=== PATIENT | female | born 1960 | race Caucasian/White ===

== ENCOUNTER 2016-05-18 12:29 | Outpatient (CLI) | payer MEDICARE, MEDICAID | END 2016-05-18 12:30 | disposition home or self-care (01) | DX: E87.1 Hypo-osmolality and hyponatremia (principal); I10 Essential (primary) hypertension ==

== ENCOUNTER 2016-05-31 13:28 | Outpatient (CLI) | payer MEDICARE, MEDICAID | END 2016-05-31 13:29 | disposition home or self-care (01) | DX: E87.1 Hypo-osmolality and hyponatremia (principal) ==

== ENCOUNTER 2016-07-14 14:45 | Outpatient (CLI) | payer MEDICARE, MEDICAID | END 2016-07-14 15:00 | disposition home or self-care (01) | DX: R42 Dizziness and giddiness (principal) ==

== ENCOUNTER 2016-11-17 10:02 | Outpatient (CLI) | payer MEDICARE, MEDICAID ==
[2016-11-17 11:03] LABS: BASOPHILS # (AUTO) 0.1 10^3/uL (0.0-0.1); BASOPHILS % (AUTO) 0.9 %; EOSINOPHILS # (AUTO) 0.2 10^3/uL (0.0-0.7); EOSINOPHILS % (AUTO) 3.4 %; HCT - HEMATOCRIT 40.6 % (37.0-47.0); HGB - HEMOGLOBIN 13.8 g/dL (12.0-16.0); LYMPHOCYTES # (AUTO) 1.5 10^3/uL (1.5-3.5); LYMPHOCYTES % (AUTO) 22.5 %; MEAN CORPUSCULAR HGB CONC 33.9 g/dL (32.0-36.0); MEAN CORPUSCULAR VOLUME 91.4 fL (81.0-99.0); MEAN PLATELET VOLUME 7.4 fL (7.9-10.8); MONOCYTES # (AUTO) 0.7 10^3/uL (0.0-1.0); MONOCYTES % (AUTO) 9.9 %; NEUTROPHILS # (AUTO) 4.1 10^3/uL (1.5-6.6); NEUTROPHILS % (AUTO) 63.3 %; RED BLOOD COUNT 4.44 10^6/uL (4.20-5.40); RED CELL DISTRIBUTION WIDTH 12.9 % (12.0-15.0); UNCORRECTED WHITE BLOOD COUNT 6.5 x10^3/uL; WHITE BLOOD COUNT 6.5 x10^3/uL (4.8-10.8)
[2016-11-17 11:41] LABS: ALBUMIN/GLOBULIN RATIO 1.9 (1.0-2.2); BILIRUBIN,TOTAL 0.7 mg/dL (0.2-1.0); BUN - BLOOD UREA NITROGEN 16 mg/dL (6-20); CALCIUM 9.8 mg/dL (8.5-10.3); CARBON DIOXIDE - CO2 29 mmol/L (21-32); CHLORIDE 95 mmol/L (101-111); CHOL/HDL RATIO 2.8 (<4.4); CHOLESTEROL 213 mg/dL; CREATININE 0.8 mg/dL (0.4-1.0); GFR - MDRD 74 (>89); GLUCOSE 116 mg/dL (70-100); HDL CHOLESTEROL 76 mg/dL; LDL/HDL RATIO 1.6 (<4.4); POTASSIUM 4.8 mmol/L (3.5-5.0); SODIUM 134 mmol/L (135-145); TOTAL PROTEIN 6.9 g/dL (6.7-8.2); TRIGLYCERIDES 83 mg/dL; VLDL CHOLESTEROL 17 mg/dL
== END 2016-11-17 10:03 | disposition home or self-care (01) ==
LOC: LAB 10:02
PROVIDERS: ATTEND Family Medicine
DX: E87.1 Hypo-osmolality and hyponatremia (principal); F31.30 Bipolar disorder, current episode depressed, mild or moderate severity, unspecified; Z51.81 Encounter for therapeutic drug level monitoring; R61 Generalized hyperhidrosis
CPT/HCPCS: 36415; 80053; 80061; 84443; 85025

== ENCOUNTER 2016-12-11 20:10 | Emergency (ER) | payer MEDICARE, MEDICAID ==
[2016-12-11 20:22] VITALS: BP 133/90
[2016-12-11] MEDS ORDERED: ACETAMINOPHEN 325 MG TABLET PO STA (20:36)
--- NOTE | 2016-12-11 20:38 | ED Physician Documentation ---
PD HPI HEENT - Stated complaint Stated Complaint: TOOTH PX - Chief complaint Chief Complaint: Heent - History obtained from History obtained from: Patient - History of Present Illness Timing - onset: How many days ago (4) Timing - details: Abrupt onset, Still present Location: Mouth Improves: Nothing Associated symptoms: No: Fever, Congestion, Rhinorrhea, Unable to swallow Similar symptoms before: Work up / diagnostics Recently seen: Clinic - Additional information Additional information: Patient is a 56 year old female wiht no significant past medical history who is presenting to the emergency department for facial pain. Patient states that she went to the dentist 4 days prior and had some injections. Patient states that there has been a small mass there since that time and it has been painful since then. Patient denies fever, chills, change in vision or numbness. Review of Systems Constitutional: denies: Fever, Chills Eyes: denies: Loss of vision, Decreased vision, Photophobia Ears: denies: Ear pain, Drainage/discharge Nose: denies: Rhinorrhea / runny nose, Congestion, Epistaxis Throat: reports: Dental pain / toothache. denies: Oral lesions / sores Cardiac: denies: Chest pain / pressure, Palpitations Respiratory: denies: Cough, Wheezing GI: denies: Nausea, Vomiting : reports: Reviewed and negative Skin: reports: Lesions Musculoskeletal: denies: Neck pain, Back pain Neurologic: denies: Focal weakness, Numbness Immunocompromised: denies: Immunocompromised PD PAST MEDICAL HISTORY - Past Medical History Past Medical History: Yes Cardiovascular: Hypertension Respiratory: Other Neuro: Headache/migraine, Head injury, Seizure disorder Endocrine/Autoimmune: None Psych: Depression, Anxiety, Bipolar disorder, Panic attacks Musculoskeletal: Osteoarthritis, Fibromyalgia, Chronic back pain - Past Surgical History Past Surgical History: Yes General: Bowel surgery /RN FAMILY: Tubal ligation - Present Medications Home Medications: Ambulatory Orders Medication Instructions Recorded Confirmed Baclofen [Lioresal] 10 mg PO TID 01/29/13 12/11/16 Citalopram [CeleXA] 40 mg PO DAILY 01/29/13 12/11/16 Gabapentin 600 mg PO TID 01/29/13 12/11/16 Ibuprofen [Advil Migraine] 800 mg PO QID 01/29/13 12/11/16 Metoprolol Tartrate [Lopressor] 25 mg PO BID 01/29/13 12/11/16 Vitamin [Trinatal Rx 1] 1 each PO DAILY 01/29/13 12/11/16 QUEtiapine [SEROquel] 200 mg ORAL QPM 02/25/14 12/11/16 Meloxicam 15 mg PO DAILY 12/11/16 12/11/16 - Allergies Allergies/Adverse Reactions: Allergies Allergy/AdvReac Type Severity Reaction Status Date / Time Sulfa (Sulfonamide Allergy Itching Verified 12/11/16 20:22 Antibiotics) sulfamethoxazole Allergy Unknown Verified 12/11/16 20:22 [From ] trimethoprim [From ] Allergy Unknown Verified 12/11/16 20:22 - Social History Does the pt smoke?: Yes Smoking Status: Current every day smoker Does the pt drink ETOH?: Yes Does the pt have substance abuse?: No - Immunizations Immunizations are current?: Yes PD ED PE NORMAL - Vitals Vital signs reviewed: Yes - General General: Alert and oriented X 3, No acute distress, Well developed/nourished - HEENT HEENT: Atraumatic, PERRL, Moist mucous membranes - Neck Neck: Supple, no meningeal sign, No JVD - Cardiac Cardiac: RRR, No murmur - Respiratory Respiratory: No respiratory distress, Clear bilaterally - Abdomen Abdomen: Soft, Non tender, Non distended - Derm Derm: Normal color, Warm and dry, No rash - Extremities Extremities: No deformity - Neuro Neuro: Alert and oriented X 3, No motor deficit, No sensory deficit, Normal speech - Psych Psych: Normal mood PD ED PE EXPANDED - HEENT HEENT: Dental decay (dental caries, no surrounding abscess or fluid collection) , Other (tendern nodule over left maxillary region, no erythema) Results - Vitals Vitals: Vital Signs - 24 hr 12/11/16 20:20 Temperature 36.3 C L Heart Rate 83 Respiratory 18 Rate Blood Pressure 133/90 H O2 Saturation 96 Oxygen O2 Source Room air PD MEDICAL DECISION MAKING - ED course Complexity details: reviewed old records, reviewed results, re-evaluated patient , considered differential, d/w patient ED course: Patient was seen and examined at bedside. Patient's symptoms were secondary to the injection. there was no infection or neurological deficit. Patient was treated with tylenol for pain. Patient required no further work up and was stable for discharge with outpatient follow up. Departure - Departure Disposition: 01 Home, Self Care Clinical Impression: Injection site reaction Condition: Good Instructions: ED Tooth Pain Follow-Up: primary,dentist [Other] - Within 3 Days Comments: Your symptoms are likely secondary to your injection. there is no sign of infection at this time. You should alternate between motrin and tylenol as needed for pain. You should apply warm compresses to the injection site. You should follow up with your dentist over the next few days. You may return to the emergency department at any time for new, worsening or uncontrollable symptoms. Discharge Date/Time: 12/11/16 20:49
[2016-12-11] MEDS ORDERED: ACETAMINOPHEN 325 MG TABLET PO ONE (20:52)
== END 2016-12-11 20:49 | disposition home or self-care (01) ==
LOC: ED 20:10
DX: R22.9 Localized swelling, mass and lump, unspecified (principal); G50.1 Atypical facial pain; K02.9 Dental caries, unspecified; Z98.890 Other specified postprocedural states
CPT/HCPCS: 99283; A9270

== ENCOUNTER 2017-02-13 09:58 | Emergency (ER) | payer MEDICARE, MEDICAID ==
[2017-02-13 10:06] VITALS: BP 198/94
[2017-02-13] MEDS ORDERED: AMOX/CLAV 875 MG/125 MG TABLET PO STA ×2 (10:14→10:16)
--- NOTE | 2017-02-13 10:15 | ED Physician Documentation ---
PD HPI HEENT - Stated complaint Stated Complaint: TOOTH PX - Chief complaint Chief Complaint: Heent - History obtained from History obtained from: Patient - History of Present Illness Timing - onset: Yesterday Timing - details: Gradual onset, Still present Location: Tooth, Mouth Associated symptoms: Facial swelling. No: Fever Similar symptoms before: Work up / diagnostics, Treatment Recently seen: Not recently seen - Additional information Additional information: Patient is a 56 year old female who is presenting to the emergency department for facial swelling. patient states that about a month ago she developed an abscess in her mouth and saw her dentist and was on antibiotics. Patient states that today when she woke up her face was swollen and she noticed an abscess in her mouth. Review of Systems Constitutional: denies: Fever, Chills Eyes: reports: Reviewed and negative Ears: denies: Ear pain, Drainage/discharge Nose: reports: Reviewed and negative Throat: reports: Oral lesions / sores Cardiac: reports: Reviewed and negative Respiratory: reports: Reviewed and negative GI: reports: Reviewed and negative : reports: Reviewed and negative Musculoskeletal: reports: Reviewed and negative Immunocompromised: denies: Immunocompromised PD PAST MEDICAL HISTORY - Past Medical History Cardiovascular: Hypertension Respiratory: Other Neuro: Headache/migraine, Head injury, Seizure disorder Endocrine/Autoimmune: None Psych: Depression, Anxiety, Bipolar disorder, Panic attacks Musculoskeletal: Osteoarthritis, Fibromyalgia, Chronic back pain - Past Surgical History Past Surgical History: Yes 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 - Present Medications Home Medications: Ambulatory Orders Medication Instructions Recorded Confirmed Baclofen [Lioresal] 10 mg PO TID 01/29/13 02/13/17 Citalopram [CeleXA] 40 mg PO DAILY 01/29/13 02/13/17 Gabapentin 600 mg PO TID 01/29/13 02/13/17 Ibuprofen [Advil Migraine] 800 mg PO QID 01/29/13 02/13/17 Metoprolol Tartrate [Lopressor] 25 mg PO BID 01/29/13 02/13/17 Vitamin [Trinatal Rx 1] 1 each PO DAILY 01/29/13 02/13/17 QUEtiapine [SEROquel] 200 mg ORAL QPM 02/25/14 02/13/17 Meloxicam 15 mg PO DAILY 12/11/16 02/13/17 Amox/Clav 875/125 [Augmentin] 1 each PO Q12H #14 tablet 02/13/17 Chlorhexidine Gluconate 15 ml MM Q6HR #470 ml 02/13/17 - Allergies Allergies/Adverse Reactions: Allergies Allergy/AdvReac Type Severity Reaction Status Date / Time Sulfa (Sulfonamide Allergy Itching Verified 12/11/16 20:22 Antibiotics) sulfamethoxazole Allergy Unknown Verified 12/11/16 20:22 [From ] trimethoprim [From ] Allergy Unknown Verified 12/11/16 20:22 - Social History Does the pt smoke?: Yes Smoking Status: Current every day smoker Does the pt drink ETOH?: Yes Does the pt have substance abuse?: No - Immunizations Immunizations are current?: Yes PD ED PE NORMAL - Vitals Vital signs reviewed: Yes - General General: Alert and oriented X 3, No acute distress - HEENT HEENT: Atraumatic, PERRL - Cardiac Cardiac: RRR, No murmur - Respiratory Respiratory: No respiratory distress - Derm Derm: Normal color, Warm and dry, No rash - Extremities Extremities: No deformity - Neuro Neuro: Alert and oriented X 3 - Psych Psych: Normal mood PD ED PE EXPANDED - HEENT HEENT: Dental abscess (1cm by 0.5 cm on superior lateral gums on bucal/gingiva region on the left) Results - Vitals Vitals: Vital Signs - 24 hr 02/13/17 10:03 Temperature 36.3 C L Heart Rate 88 Respiratory 18 Rate Blood Pressure 198/94 H O2 Saturation 98 Oxygen O2 Source Room air Procedures - Abscess I&D (location) left upper gums Preparation: Marcaine 0.5% Incision: Needle aspiration Other: Pt tolerated well, Antibiotic prescribed PD MEDICAL DECISION MAKING - ED course Complexity details: reviewed old records, reviewed results, re-evaluated patient , considered differential, d/w patient ED course: Patient was seen and examined at bedside. patient's abscess was I/D. Patient was treated with ibuprofen and augmentin. patient required no further work up at this time and was stable for discharge with outpatient follow up. Departure - Departure Disposition: 01 Home, Self Care Clinical Impression: Dental abscess Condition: Good Instructions: ED Dental Abscess Facial Cellulitis Follow-Up: Raffi Miller MD [Primary Care Provider] - Prescriptions: Chlorhexidine Gluconate 15 ml MM Q6HR #470 ml Amox/Clav 875/125 [Augmentin] 1 each PO Q12H #14 tablet Comments: Your symptoms today are being caused by a dental abscess. it has been opened up , and you were started on antibiotics. You should take the antibiotics twice a day and use the oral rinse at least 4 times a day. Ultimately you will need to follow up with your dentist for further evaluation and care. You can take motrin or tylenol as needed for pain. You may return to the emergency department at any time for new, worsening or uncontrollable symptoms.
[2017-02-13] MEDS ORDERED: IBUPROFEN 600 MG TABLET PO STA (10:17)
== END 2017-02-13 10:26 | disposition home or self-care (01) ==
LOC: ED 09:58
DX: K04.7 Periapical abscess without sinus (principal); I10 Essential (primary) hypertension; M79.7 Fibromyalgia; M19.90 Unspecified osteoarthritis, unspecified site; F17.200 Nicotine dependence, unspecified, uncomplicated
CPT/HCPCS: 41800; 99283; A9270

== ENCOUNTER 2017-02-24 09:17 | Outpatient (CLI) | payer MEDICARE, MEDICAID ==
--- NOTE | 2017-02-24 11:47 | XRAY Report ---
DATE OF SERVICE: 02/24/2017 RIGHT FOOT: 02/24/2017 COMPARISON: None. INDICATION: Right foot pain. TECHNIQUE: Three views of the foot. FINDINGS: Normal alignment. No evidence of acute fracture. No degenerative changes. Soft tissues grossly unremarkable. IMPRESSION: NEGATIVE RIGHT FOOT. TD: 02/24/2017 12:17 [facility]
== END 2017-02-24 09:18 | disposition home or self-care (01) ==
LOC: DI.N 09:17
PROVIDERS: ATTEND Family Medicine
DX: M79.671 Pain in right foot (principal)

== ENCOUNTER 2017-03-07 09:10 | Outpatient (CLI) | payer MEDICARE, MEDICAID ==
--- NOTE | 2017-03-07 11:41 | Ultrasound Report ---
DATE OF SERVICE: 03/07/2017 ULTRASOUND RIGHT FOOT SOFT TISSUES: 03/07/2017 CLINICAL INDICATION: Pain, question foreign body. TECHNIQUE: Real-time scanning was performed with business banking representative static images obtained. FINDINGS: Ultrasound of the region of pain identified by the patient was performed. Subcutaneous edema is seen. No definite foreign body is identified. IMPRESSION: No definite foreign body identified in the soft tissues on the plantar surface of the right calcaneus. Subcutaneous edema. TD: 03/07/2017 12:40
== END 2017-03-07 09:11 | disposition home or self-care (01) ==
LOC: DI 09:10
PROVIDERS: ATTEND Family Medicine
DX: M79.671 Pain in right foot (principal); R60.0 Localized edema
CPT/HCPCS: 76882

== ENCOUNTER 2017-06-29 13:39 | Outpatient (CLI) | payer MEDICARE, MEDICAID ==
[2017-06-29 14:14] LABS: CALCIUM 9.4 mg/dL (8.5-10.3); CREATININE 0.8 mg/dL (0.4-1.0)
[2017-06-29 14:22] LABS: HB2 TOTAL 15.2 g/dL; HEMOGLOBIN A1C 0.59 g/dL; HEMOGLOBIN A1C % 5.7 % (4.6-6.2)
== END 2017-06-29 13:40 | disposition home or self-care (01) ==
LOC: LAB 13:39
PROVIDERS: ATTEND Family Medicine
DX: R73.01 Impaired fasting glucose (principal); Z51.81 Encounter for therapeutic drug level monitoring
CPT/HCPCS: 36415; 80048; 83036

== ENCOUNTER 2017-08-29 14:48 | Outpatient (CLI) | payer MEDICARE, MEDICAID ==
--- NOTE | 2017-08-29 15:58 | XRAY Report ---
Procedure Date: 08/29/2017 Accession Number: [id number] / [id number] Procedure: XRN - Shoulder 3 View RT CPT Code: FULL RESULT: EXAM: Shoulder 3 View RT DATE: 08/29/2017 3:10 PM CLINICAL HISTORY: R SHOULDER CONTUSION COMPARISON: None. TECHNIQUE: 3 views. FINDINGS: Bones: Normal. No fracture or bone lesion. Joints: Minimal degenerative changes in the acromioclavicular joint. Soft tissues: Progressive emphysema and fibrosis in the right upper lobe. Fullness and retraction of the right hilum. The possibility of a hilar mass cannot be excluded. Consider chest CT with contrast for further evaluation. IMPRESSION: Mild degenerative changes of the acromioclavicular joint. Right hilar fullness, with superior retraction. The possibility of a right hilar mass cannot be excluded. Consider chest CT with contrast for further evaluation. [facility]
== END 2017-08-29 14:49 | disposition home or self-care (01) ==
LOC: DI.N 14:48
PROVIDERS: ATTEND Family Medicine
DX: M25.511 Pain in right shoulder (principal); S40.011A Contusion of right shoulder, initial encounter

== ENCOUNTER 2017-09-08 12:19 | Outpatient (CLI) | payer MEDICARE, MEDICAID ==
[2017-09-08] MEDS ORDERED: IOPAMIDOL-300 100 ML VIAL ONE (12:53)
[2017-09-08 13:14] LABS: CALCIUM 9.1 mg/dL (8.5-10.3); CREATININE 0.7 mg/dL (0.4-1.0)
[2017-09-08] MEDS: IOPAMIDOL-300 100 ML VIAL IVP ONE (13:33)
--- NOTE | 2017-09-08 13:57 | CT Report ---
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 TECHNIQUE: Routine helical CT imaging was performed through the chest. IV contrast: 80 mL Isovue 300 Reconstructions: Coronal and sagittal. In accordance with CT protocol optimization, one or more of the following dose reduction techniques were utilized for this exam: automated exposure control, adjustment of mA and/or KV based on patient size, or use of iterative reconstructive technique. FINDINGS: Lungs/Pleura: There is a 5.5 x 4.1 cm spiculated right upper lobe hilar mass with partial collapse of the right upper lobe and interstitial thickening suggestive of perilymphatic spread of disease and partial encasement of right hilar vessels. There is associated lymphadenopathy of an abnormally enhancing 1.3 cm subcarinal node with loss of fatty hilum as well as a 1.4 cm pretracheal node with similarly concerning features. No chest wall invasion, contralateral hilar adenopathy or contralateral lung mass is identified. There is no associated pleural effusion. Both lungs demonstrate severe upper lobe predominant emphysema. The heart is normal for size. In the visualized upper abdomen, a left retroperitoneal/coronal lymph node does not meet size criteria but is visually suspicious. Incompletely imaged is a perisplenic 1.1 cm lymph node versus volume averaging of a splenule. The liver contains a hypoattenuating subcapsular posterior lesion measuring 6.3 x 3 cm, soft tissue density. No aggressive osseous lesions are identified. IMPRESSION: Highly suspicious right upper lobe perihilar mass with perilymphatic invasion and partial encasement of hilar vasculature as described with associated mediastinal lymphadenopathy. Nonspecific liver mass measuring up to 6 cm. Possible retroperitoneal abdominal lymphadenopathy including a incompletely imaged perisplenic finding as described. Recommendation: Staging with completion CT abdomen pelvis, PET/CT and tissue sampling. [facility]
== END 2017-09-08 12:20 | disposition home or self-care (01) ==
LOC: DI 12:19
PROVIDERS: ATTEND Family Medicine
DX: R91.8 Other nonspecific abnormal finding of lung field (principal); R59.0 Localized enlarged lymph nodes; R16.0 Hepatomegaly, not elsewhere classified; F17.210 Nicotine dependence, cigarettes, uncomplicated
CPT/HCPCS: 36415; 71260; 80048; Q9967

== ENCOUNTER 2017-11-02 13:13 | Outpatient (CLI) | payer MEDICARE, MEDICAID ==
--- NOTE | 2017-11-03 09:19 | Mammography Report ---
Reason: SCREENING MAMMO Procedure Date: 11/02/2017 Accession Number: [id number] / [id number] Procedure: SANDRA - Screening Mammo Dig Bilat CPT Code: FULL RESULT: EXAM: Screening Mammo Dig Bilat DATE: 11/02/2017 3:03 PM CLINICAL HISTORY: Screening mammogram TECHNIQUE: Bilateral CC and MLO views were obtained. COMPARISON: Mammogram 01/28/2015 FINDINGS: The breast parenchyma is heterogeneously dense which may limit the sensitivity of mammography. No suspicious masses, clustered microcalcifications, or regions of architectural distortion are identified. IMPRESSION: BI-RADS Category 1. Negative. RECOMMENDATION: Routine annual screening unless otherwise clinically indicated. BIRADS CATEGORY 1: Negative STANDARD QUALIFYING STATEMENTS: 1. This examination was reviewed with the aid of Computer-Aided Detection (CAD). 2. A negative or benign imaging report should not delay biopsy if clinically suspicious findings are present. Consider surgical consultation if warrented. More than 5% of cancers are not identified by imaging. 3. Dense breasts may obscure an underlying neoplasm.
== END 2017-11-02 13:14 | disposition home or self-care (01) ==
LOC: DI 13:13
DX: Z12.31 Encounter for screening mammogram for malignant neoplasm of breast (principal)
CPT/HCPCS: 77067

== ENCOUNTER 2017-12-02 13:33 | Emergency (ER) | payer MEDICARE, MEDICAID ==
[2017-12-02 13:42] VITALS: BP 153/90
--- NOTE | 2017-12-02 13:51 | ED Physician Documentation ---
PD HPI SKIN - Stated complaint Stated Complaint: BUMP ON R ARMPIT - Chief complaint Chief Complaint: Wound - History obtained from History obtained from: Patient - History of Present Illness Timing - onset: Yesterday (has noted swelling of right axillary area yesterday and worse today. Had biopsy of lymph node 5 days ago for workup of lung cancer. No redness nor drainage from the area.) Timing - duration: Days (2) Timing - details: Abrupt onset, Still present Location: Other (right lateral chest/lower axillary area.) Quality / character: Swelling Associated symptoms: Other (she also ran out of her pain med Rx she had gotten recently, oxycodone.) Similar symptoms before: Has not had sx before Recently seen: Surgery (had lymph node biopsy in that area 5 days ago, with 2 cm incision.) Review of Systems Constitutional: denies: Fever, Chills, Myalgias Nose: denies: Rhinorrhea / runny nose, Congestion Throat: denies: Sore throat Respiratory: denies: Cough GI: denies: Nausea, Vomiting PD PAST MEDICAL HISTORY - Past Medical History Past Medical History: Yes Cardiovascular: Hypertension Respiratory: Other Endocrine/Autoimmune: None Psych: Depression, Anxiety, Bipolar disorder, Panic attacks Musculoskeletal: Osteoarthritis, Fibromyalgia, Chronic back pain Other Past Medical History: lung cancer with unknown staging - Past Surgical History Past Surgical History: Yes 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 - Present Medications Home Medications: Ambulatory Orders Medication Instructions Recorded Confirmed Citalopram [CeleXA] 40 mg PO DAILY 01/29/13 02/13/17 Gabapentin 600 mg PO TID 01/29/13 02/13/17 Metoprolol Tartrate [Lopressor] 25 mg PO BID 01/29/13 02/13/17 Vitamin [Trinatal Rx 1] 1 each PO DAILY 01/29/13 02/13/17 QUEtiapine [SEROquel] 200 mg ORAL QPM 02/25/14 02/13/17 Meloxicam 15 mg PO DAILY 12/11/16 02/13/17 oxyCODONE [Roxicodone] 5 mg PO Q4-6H PRN #20 tablet 12/02/17 - Allergies Allergies/Adverse Reactions: Allergies Allergy/AdvReac Type Severity Reaction Status Date / Time Sulfa (Sulfonamide Allergy Itching Verified 12/02/17 13:42 Antibiotics) sulfamethoxazole Allergy Unknown Verified 12/02/17 13:42 [From ] trimethoprim [From ] Allergy Unknown Verified 12/02/17 13:42 - Social History Does the pt smoke?: Yes Smoking Status: Current every day smoker Does the pt drink ETOH?: Yes Does the pt have substance abuse?: No - Immunizations Immunizations are current?: Yes - POLST Patient has POLST: No PD ED PE NORMAL - Vitals Vital signs reviewed: Yes - General General: Alert and oriented X 3, No acute distress, Well developed/nourished - Cardiac Cardiac: RRR, No murmur - Respiratory Respiratory: No: Clear bilaterally (some congested sounds left side. no wheezing. ) - Derm Derm: Normal color, Warm and dry, Other (right lower axillary/lateral chest area with 2 cm closed incision wound without redness nor warmth. There is fluctuant fluid collection under the skin in that area. ) Results - Vitals Vitals: Vital Signs - 24 hr 12/02/17 13:38 Temperature 36.3 C L Heart Rate 76 Respiratory 18 Rate Blood Pressure 153/90 H O2 Saturation 95 Oxygen O2 Source Room air Procedures - General procedure General procedure: After discussing with the patient, we agreed on draining the area to see if it looked infected or just a seroma. Local anesthetic with 1% lidocaine with epi was injected after cleansing the skin. I then used an 18-gauge needle on a syringe to drain clear yellow fluid from the area. 48 mL of fluid was obtained. There is no purulence nor blood. It appeared consistent with seroma fluid. It was not cultured. Departure - Departure Disposition: 01 Home, Self Care Clinical Impression: Seroma after procedure Condition: Stable Record reviewed to determine appropriate education?: Yes Instructions: ED Seroma Post Op Follow-Up: Raffi Miller MD [Primary Care Provider] - Prescriptions: oxyCODONE [Roxicodone] 5 mg PO Q4-6H PRN #20 tablet PRN Reason: Pain Comments: This looks to be clear fluid consistent with seroma. It does not look infected. Follow-up with your primary care or oncologist as planned. Return if this area does get red hot or you develop fever. Discharge Date/Time: 12/02/17 14:44
[2017-12-02] MEDS ORDERED: LIDOCAINE MPF 1%-EPI 1:200000 30 ML VIAL SUBQ STA (14:00)
[2017-12-02] MEDS ORDERED: oxyCODONE 5 MG TABLET PO STA (14:00)
== END 2017-12-02 14:44 | disposition home or self-care (01) ==
LOC: ED 13:33
DX: L76.34 Postprocedural seroma of skin and subcutaneous tissue following other procedure (principal); I70.1 Atherosclerosis of renal artery; F17.200 Nicotine dependence, unspecified, uncomplicated
CPT/HCPCS: 10160; 99283; A9270

== ENCOUNTER 2017-12-03 13:02 | Emergency (ER) | payer MEDICARE, MEDICAID ==
[2017-12-03 13:07] VITALS: BP 149/96
--- NOTE | 2017-12-03 13:32 | ED Physician Documentation ---
PD HPI WOUND RECHECK - Stated complaint Stated Complaint: UNDERARM PX - Chief complaint Chief Complaint: Wound - Histroy obtained from History obtained from: Patient - History of Present Illness Location: Chest (right lateral chest/anterior axillary area.) Associated symptoms: Swelling, Pain. No: Fever, Redness, Drainage Recently seen: Clinic (had lymph node biopsy recently with seroma/swelling develop and had it drained yesterday in ER. Has the swelling back again. 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 - Present Medications Home Medications: Ambulatory Orders Medication Instructions Recorded Confirmed Citalopram [CeleXA] 40 mg PO DAILY 01/29/13 02/13/17 Gabapentin 600 mg PO TID 01/29/13 02/13/17 Metoprolol Tartrate [Lopressor] 25 mg PO BID 01/29/13 02/13/17 Vitamin [Trinatal Rx 1] 1 each PO DAILY 01/29/13 02/13/17 QUEtiapine [SEROquel] 200 mg ORAL QPM 02/25/14 02/13/17 Meloxicam 15 mg PO DAILY 12/11/16 02/13/17 oxyCODONE [Roxicodone] 5 mg PO Q4-6H PRN #20 tablet 12/02/17 - Allergies Allergies/Adverse Reactions: Allergies Allergy/AdvReac Type Severity Reaction Status Date / Time Sulfa (Sulfonamide Allergy Itching Verified 12/03/17 13:08 Antibiotics) sulfamethoxazole Allergy Unknown Verified 12/03/17 13:08 [From ] trimethoprim [From ] Allergy Unknown Verified 12/03/17 13:08 - Social History Does the pt smoke?: Yes Smoking Status: Current every day smoker Does the pt drink ETOH?: Yes Does the pt have substance abuse?: No - Immunizations Immunizations are current?: Yes - POLST Patient has POLST: No PD ED PE NORMAL - Vitals Vital signs reviewed: Yes - General General: Alert and oriented X 3, No acute distress, Well developed/nourished - Respiratory Respiratory: Other (right lateral chest/anterior axillary area with fluctuant swelling under healing surgical site. No redness nor purulence. c/w seroma recurrence. ) Results - Vitals Vitals: Vital Signs - 24 hr 12/03/17 13:04 Temperature 35.5 C L Heart Rate 80 Respiratory 18 Rate Blood Pressure 149/96 H O2 Saturation 99 Oxygen O2 Source Room air Procedures - General procedure General procedure: Local anesth lido with epi after cleansing skin. 18G needle then used with 60 ml syringe to evacuate yellow colored clear fluid c/w seroma. 60 ml obtained and it deflated the fluctuant area, and she is more comfortable. Bandaid applied. No complications. Departure - Departure Disposition: 01 Home, Self Care Clinical Impression: Seroma after procedure Condition: Stable Record reviewed to determine appropriate education?: Yes Comments: You can apply the stretchy tape or jarvis wrap over the area to see if it will reduce the amount of reaccumulation of the seroma. A sports bra could also cover the spot and give some pressure to the area. Follow-up this coming week as planned in the oncology clinic. Return if signs of infection. Discharge Date/Time: 12/03/17 13:42
== END 2017-12-03 13:42 | disposition home or self-care (01) ==
LOC: ED 13:02
DX: L76.34 Postprocedural seroma of skin and subcutaneous tissue following other procedure (principal); Y83.8 Other surgical procedures as the cause of abnormal reaction of the patient, or of later complication, without mention of misadventure at the time of the procedure; I10 Essential (primary) hypertension; F17.200 Nicotine dependence, unspecified, uncomplicated
CPT/HCPCS: 10140; 99282; 99283

== ENCOUNTER 2017-12-14 13:00 | Emergency (ER) | payer MEDICARE, MEDICAID ==
--- NOTE | 2017-12-14 13:39 | ED Physician Documentation ---
PD HPI SKIN - Stated complaint Stated Complaint: MASS UNDER RT ARMPIT - Chief complaint Chief Complaint: General - History obtained from History obtained from: Patient - History of Present Illness Timing - onset: How many weeks ago (2-3) Timing - duration: Weeks Timing - details: Gradual onset (had lymph node biopsy with subsequent seroma beginning of the month. Had it drainaed but she says it has slowly reaccumulated and has gotten very uncomfortable due to the prssure of it. 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 HEENT: None Psych: Depression, Anxiety, Bipolar disorder, Panic attacks Musculoskeletal: Osteoarthritis, Fibromyalgia, Chronic back pain Derm: None - Past Surgical History Past Surgical History: Yes General: Bowel surgery /[employer] BACK FEEDER: Tubal ligation - Present Medications Home Medications: Ambulatory Orders Medication Instructions Recorded Confirmed Citalopram [CeleXA] 40 mg PO DAILY 01/29/13 02/13/17 Gabapentin 600 mg PO TID 01/29/13 02/13/17 Metoprolol Tartrate [Lopressor] 25 mg PO BID 01/29/13 02/13/17 Vitamin [Trinatal Rx 1] 1 each PO DAILY 01/29/13 02/13/17 QUEtiapine [SEROquel] 200 mg ORAL QPM 02/25/14 02/13/17 Meloxicam 15 mg PO DAILY 12/11/16 02/13/17 oxyCODONE [Roxicodone] 5 mg PO Q4-6H PRN #20 tablet 12/02/17 - Allergies Allergies/Adverse Reactions: Allergies Allergy/AdvReac Type Severity Reaction Status Date / Time Sulfa (Sulfonamide Allergy Itching Verified 12/03/17 13:08 Antibiotics) sulfamethoxazole Allergy Unknown Verified 12/03/17 13:08 [From ] trimethoprim [From ] Allergy Unknown Verified 12/14/17 13:10 - Social History Does the pt smoke?: Yes Smoking Status: Current every day smoker Does the pt drink ETOH?: Yes Does the pt have substance abuse?: No - Immunizations Immunizations are current?: Yes - POLST Patient has POLST: No PD ED PE NORMAL - Vitals Vital signs reviewed: Yes - General General: Alert and oriented X 3, No acute distress, Well developed/nourished - Cardiac Cardiac: RRR, No murmur - Respiratory Respiratory: Clear bilaterally - Derm Derm: Normal color, Warm and dry, Other (right anterior axillary area with healing biopsy wound without signs of infection. Underneath that area is large firm area of fluctuance c/w seroma again. ) Results - Vitals Vitals: Oxygen O2 Source Room air Procedures - General procedure General procedure: Local anesth with lido/epi, and then needle aspiration of about 150 ml clear fluid. Then small zacarias made with scalpel to get complete drainage of about another 150 ml and I placed small daron drain into the cavity, with single suture at opening to hold the drain in place. PD MEDICAL DECISION MAKING - ED course Complexity details: considered differential (apparent seroma has accumulated again and is tense now, with firm pressure. No redness nor warmth. Can drain it for symptomatic treatment. However, with the recurrences still, will at this point, place drain in it to keep from acumulating again. F/U with the surgeon this coming week. ), d/w patient Departure - Departure Disposition: 01 Home, Self Care Clinical Impression: Recurrent seroma of breast Condition: Stable Record reviewed to determine appropriate education?: Yes Instructions: ED Seroma Post Op Follow-Up: Raffi Miller MD [Primary Care Provider] - Comments: Make an appointment with Dr. Ceja the surgeon who did the lymph node biopsy. See if they have other ideas on reducing the recurrence of the seroma. This drain and there should keep it from reaccumulating at this point but will need f ollow-up next week, call for an appointment. Follow-up with your oncologist as planned for radiation to the area. Recheck if signs of infection to include redness purulence or fever. Discharge Date/Time: 12/14/17 15:39
[2017-12-14 15:38] VITALS: BP 162/86
== END 2017-12-14 15:39 | disposition home or self-care (01) ==
LOC: ED 13:00
DX: N64.89 Other specified disorders of breast (principal); I10 Essential (primary) hypertension; F17.200 Nicotine dependence, unspecified, uncomplicated
CPT/HCPCS: 10140; 99283

== ENCOUNTER 2017-12-22 14:55 | Emergency (ER) | payer MEDICARE, MEDICAID ==
[2017-12-22 15:07] VITALS: BP 146/82
--- NOTE | 2017-12-22 15:51 | ED Physician Documentation ---
PD HPI SKIN - Stated complaint Stated Complaint: SEROMA DRAIN FELL OUT - Chief complaint Chief Complaint: General - History obtained from History obtained from: Patient - History of Present Illness Timing - onset: Today (has had drain in seroma cavity with good drainage and fluid has not accumulated. The drain fell out this morning. Patient here for recheck. 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: Tubal ligation - Present Medications Home Medications: Ambulatory Orders Medication Instructions Recorded Confirmed Citalopram [CeleXA] 40 mg PO DAILY 01/29/13 02/13/17 Gabapentin 600 mg PO TID 01/29/13 02/13/17 Metoprolol Tartrate [Lopressor] 25 mg PO BID 01/29/13 02/13/17 Vitamin [Trinatal Rx 1] 1 each PO DAILY 01/29/13 02/13/17 QUEtiapine [SEROquel] 200 mg ORAL QPM 02/25/14 02/13/17 Meloxicam 15 mg PO DAILY 12/11/16 02/13/17 oxyCODONE [Roxicodone] 5 mg PO Q4-6H PRN #20 tablet 12/02/17 - Allergies Allergies/Adverse Reactions: Allergies Allergy/AdvReac Type Severity Reaction Status Date / Time Sulfa (Sulfonamide Allergy Itching Verified 12/22/17 15:04 Antibiotics) sulfamethoxazole Allergy Unknown Verified 12/22/17 15:04 [From ] trimethoprim [From ] Allergy Unknown Verified 12/22/17 15:04 - Social History Does the pt smoke?: Yes Smoking Status: Current every day smoker Does the pt drink ETOH?: Yes Does the pt have substance abuse?: No - Immunizations Immunizations are current?: Yes - POLST Patient has POLST: No PD ED PE NORMAL - Vitals Vital signs reviewed: Yes - General General: Alert and oriented X 3, No acute distress, Well developed/nourished - Derm Derm: Normal color, Warm and dry, Other (right lateral breast with prior noted lump/node. There is small incision lateral that I had made for the drain. No drain seen (has fallen out) and no residual suture seen. ) - Neuro Neuro: Alert and oriented X 3, No motor deficit, Normal speech Results - Vitals Vitals: Oxygen O2 Source Room air PD MEDICAL DECISION MAKING - ED course Complexity details: considered differential (the drain fell out of the seroma area and it is flat now, without reaccumulation, and wound does not appear infected. No treatment needed. ), d/w patient Departure - Departure Disposition: 01 Home, Self Care Clinical Impression: Encounter for wound re-check Condition: Stable Record reviewed to determine appropriate education?: Yes Comments: No particular treatment needed. Keep the area clean and dry. Watch for signs of infection. Discharge Date/Time: 12/22/17 16:47
== END 2017-12-22 16:47 | disposition home or self-care (01) ==
LOC: ED 14:55
DX: T85.628A Displacement of other specified internal prosthetic devices, implants and grafts, initial encounter (principal); Y83.9 Surgical procedure, unspecified as the cause of abnormal reaction of the patient, or of later complication, without mention of misadventure at the time of the procedure; I10 Essential (primary) hypertension; F17.200 Nicotine dependence, unspecified, uncomplicated
CPT/HCPCS: 99282; 99283

== ENCOUNTER 2017-12-24 13:18 | Outpatient (CLI) | payer MEDICARE, MEDICAID | END 2017-12-24 13:19 | disposition critical access hospital (66) | LOC: EMS 13:18 | PROVIDERS: ATTEND Surgery | DX: R11.0 Nausea (principal); R53.81 Other malaise | CPT/HCPCS: A0425; A0429 ==

== ENCOUNTER 2017-12-24 13:25 | Emergency (ER) | payer MEDICARE, MEDICAID ==
[2017-12-24] MEDS ORDERED: SODIUM CHLORIDE 0.9% 1,000 ML IV ONE ×2 (13:32→14:04)
[2017-12-24] MEDS ORDERED: PROMETHAZINE INJ 25 MG in SODIUM CHLORIDE 0.9% 50 ML IV STA (13:32)
[2017-12-24] MEDS ORDERED: HYDROmorphone 1 MG/ML CARPUJECT IVP STA (13:39)
--- NOTE | 2017-12-24 13:40 | ED Physician Documentation ---
History of Present Illness - Stated complaint Stated Complaint: N/V/CHEMO PT - Chief complaint Chief Complaint: General - Additonal information Additional information: 57-year-old female who started chemotherapy last week for lung cancer presents the emergency department with increasing nausea and vomiting over the past several days. The patient has been unable to tolerate p.o. or liquids at home since the symptoms started. The patient is denying any new or different pain. Symptoms are described as moderate. The patient denies blood in the vomit or stools. No other associated symptoms. No relieving factors. Review of Systems Constitutional: reports: Chills, Fatigue. denies: Fever Eyes: denies: Discharge Ears: denies: Ear pain Nose: denies: Congestion Throat: denies: Sore throat Cardiac: denies: Chest pain / pressure Respiratory: denies: Cough GI: reports: Nausea, Vomiting : denies: Dysuria Musculoskeletal: denies: Neck pain Neurologic: reports: Generalized weakness. 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 - Present Medications Home Medications: Ambulatory Orders Medication Instructions Recorded Confirmed Citalopram [CeleXA] 40 mg PO DAILY 01/29/13 02/13/17 Gabapentin 600 mg PO TID 01/29/13 02/13/17 Metoprolol Tartrate [Lopressor] 25 mg PO BID 01/29/13 02/13/17 Vitamin [Trinatal Rx 1] 1 each PO DAILY 01/29/13 02/13/17 QUEtiapine [SEROquel] 200 mg ORAL QPM 02/25/14 02/13/17 Meloxicam 15 mg PO DAILY 12/11/16 02/13/17 oxyCODONE [Roxicodone] 5 mg PO Q4-6H PRN #20 tablet 12/02/17 Ondansetron HCl [Zofran] 4 mg PO Q8HR PRN #30 tablet 12/24/17 Oxycodone HCl/Acetaminophen 1 each PO Q6H PRN #20 tablet 12/24/17 [Percocet 5-325 mg Tablet] Promethazine [Phenergan] 25 mg PO Q6H PRN #30 tab 12/24/17 - Allergies Allergies/Adverse Reactions: Allergies Allergy/AdvReac Type Severity Reaction Status Date / Time Sulfa (Sulfonamide Allergy Itching Verified 12/24/17 13:31 Antibiotics) sulfamethoxazole Allergy Unknown Verified 12/24/17 13:31 [From ] trimethoprim [From ] Allergy Unknown Verified 12/24/17 13:31 - Social History Does the pt smoke?: Yes Smoking Status: Current every day smoker Does the pt drink ETOH?: Yes Does the pt have substance abuse?: No - Immunizations Immunizations are current?: Yes - POLST Patient has POLST: No PD ED PE NORMAL - General General: Alert and oriented X 3 - HEENT HEENT: Atraumatic, PERRL, EOMI, Ears normal - Cardiac Cardiac: RRR, Strong equal pulses - Respiratory Respiratory: No respiratory distress - Abdomen Abdomen: Soft, Non tender, Non distended - Derm Derm: Normal color - Extremities Extremities: No deformity, Normal ROM s pain, No edema - Neuro Neuro: Alert and oriented X 3, Normal speech - Psych Psych: Normal affect Results - Vitals Vitals: Vital Signs - 24 hr 12/24/17 12/24/17 12/24/17 13:28 14:16 15:21 Temperature 36.2 C L Heart Rate 118 H 124 H 110 H Respiratory 18 18 18 Rate Blood Pressure 194/114 H 124/96 H 173/96 H O2 Saturation 96 100 96 Oxygen O2 Source Nasal cannula - Labs Labs: Laboratory Tests 12/24/17 12/24/17 12/24/17 13:45 13:45 14:49 WBC 10.5 RBC 4.09 L Hgb 12.4 Hct 34.9 L MCV 85.3 MCH 30.3 MCHC 35.5 RDW 13.5 Plt Count 426 MPV 7.0 L Neut # (Auto) 9.6 H Lymph # (Auto) 0.8 L [place] # (Auto) 0.1 Eos # (Auto) 0.0 Baso # (Auto) 0.0 Absolute Nucleated RBC 0.00 Nucleated RBC % 0.0 Sodium 128 L Potassium 3.0 L Chloride 92 L Carbon Dioxide 25 Anion Gap 11.0 BUN 22 H Creatinine 0.5 Estimated GFR (MDRD) 127 Glucose 144 H Calcium 9.3 Total Bilirubin 0.7 AST 28 ALT 18 Alkaline Phosphatase 62 Total Protein 7.3 Albumin 4.2 Globulin 3.1 Albumin/Globulin Ratio 1.4 Lipase 25 Urine Color YELLOW Urine Clarity CLEAR Urine pH 7.0 Ur Specific [place] 1.015 Urine Protein 30 H Urine Glucose (UA) NEGATIVE Urine Ketones TRACE Urine Occult Blood TRACE-INTA Urine Nitrite NEGATIVE Urine Bilirubin NEGATIVE Urine Urobilinogen 0.2 (NORMAL) Ur Leukocyte Esterase NEGATIVE Urine RBC 0-5 Urine WBC 4-5 Ur Squamous Epith Cells MOD Squamous H Amorphous Sediment Moderate Urine Bacteria Few Ur Microscopic Review INDICATED Urine Culture Comments NOT INDICATED PD MEDICAL DECISION MAKING - ED course ED course: The patient's nausea and vomiting is secondary to the recent starting of chemotherapy. The patient does not have any medications at home to help manage her symptoms. The patient after treatment in the emergency department is much improved, on reevaluation the patient is resting comfortably and reports much improvement. The patient is denying any acute or different pain. The patient's potassium was slightly low which is secondary to the vomiting. This was corrected in the emergency department. Currently appears appropriate for discharge and ongoing outpatient management. The patient will be given prescriptions To help control her nausea and vomiting at home. I discussed warning signs with the patient and recommended returning to the emergency department immediately for any worsening or any concerns. Departure - Departure Disposition: 01 Home, Self Care Clinical Impression: Hypokalemia, Hyponatremia Vomiting Qualifiers: Vomiting type: unspecified Vomiting Intractability: non-intractable Nausea presence: with nausea Qualified Code(s): R11.2 - Nausea with vomiting, unspecified Condition: Good Instructions: Hypokalemia Dc, ED Nausea Vomiting Ch Follow-Up: Raffi Miller MD [Primary Care Provider] - Within 3 Days Prescriptions: Ondansetron HCl [Zofran] 4 mg PO Q8HR PRN #30 tablet PRN Reason: Nausea / Vomiting Oxycodone HCl/Acetaminophen [Percocet 5-325 mg Tablet] 1 each PO Q6H PRN #20 tablet PRN Reason: pain Promethazine [Phenergan] 25 mg PO Q6H PRN #30 tab PRN Reason: Nausea / Vomiting Comments: Please return to the emergency department for worsening symptoms or any concerns.
[2017-12-24 13:59] LABS: BASOPHILS % (AUTO) 0.3 %; EOSINOPHILS % (AUTO) 0.1 %; HGB - HEMOGLOBIN 12.4 g/dL (12.0-16.0); LYMPHOCYTES # (AUTO) 0.8 10^3/uL (1.5-3.5); LYMPHOCYTES % (AUTO) 7.2 %; MEAN CORPUSCULAR HEMOGLOBIN 30.3 pg (27.0-31.0); MEAN CORPUSCULAR HGB CONC 35.5 g/dL (32.0-36.0); MEAN CORPUSCULAR VOLUME 85.3 fL (81.0-99.0); MONOCYTES # (AUTO) 0.1 10^3/uL (0.0-1.0); MONOCYTES % (AUTO) 1.2 %; NEUTROPHILS # (AUTO) 9.6 10^3/uL (1.5-6.6); NEUTROPHILS % (AUTO) 91.2 %; PLT - PLATELET COUNT 426 10^3/uL (130-450); RED BLOOD COUNT 4.09 10^6/uL (4.20-5.40); RED CELL DISTRIBUTION WIDTH 13.5 % (12.0-15.0); WHITE BLOOD COUNT 10.5 x10^3/uL (4.8-10.8)
[2017-12-24 14:01] LABS: ALBUMIN 4.2 g/dL (3.2-5.5); ALBUMIN/GLOBULIN RATIO 1.4 (1.0-2.2); BILIRUBIN,TOTAL 0.7 mg/dL (0.2-1.0); CALCIUM 9.3 mg/dL (8.5-10.3); CREATININE 0.5 mg/dL (0.4-1.0); TOTAL PROTEIN 7.3 g/dL (6.7-8.2)
[2017-12-24] MEDS ORDERED: POTASSIUM CHLOR 20 MEQ/100 ML 20 MEQ/100 ML BAG IV ONE (14:04)
[2017-12-24] MEDS ORDERED: POTASSIUM CHLORIDE 20 MEQ TABLET PO STA (14:04)
[2017-12-24] MEDS ORDERED: MAGNESIUM SULFATE 2 GRAM 2 GM/50 ML BAG IV ONE (14:04)
[2017-12-24 15:03] LABS: BILIRUBIN,URINE NEGATIVE (NEGATIVE); GLUCOSE, URINE (UA) NEGATIVE (NEGATIVE); KETONES,URINE (UA) TRACE mg/dL (NEGATIVE); LEUKOCYTE ESTERASE, URINE NEGATIVE (NEGATIVE); NITRITE,URINE NEGATIVE (NEGATIVE); OCCULT BLOOD,URINE TRACE-INTA (NEGATIVE); PROTEIN,URINE 30 mg/dL (NEGATIVE); UROBILINOGEN,URINE 0.2 (NORMAL) E.U./dL (NORMAL)
[2017-12-24 15:04] LABS: CLARITY,URINE CLEAR (CLEAR)
[2017-12-24] MEDS: POTASSIUM CHLOR 10 MEQ/100 ML 10 MEQ/100 ML BAG IV SCH ×2 (15:20→17:12)
[2017-12-24 15:32] LABS: AMORPHOUS SEDIMENT,UR Moderate /LPF; BACTERIA,URINE Few /HPF (None Seen); RBC,URINE 0-5 /HPF (0-5); SQUAMOUS EPITHELIAL CELL,UR MOD Squamous (<= Few)
[2017-12-24 18:14] VITALS: BP 176/104
== END 2017-12-24 18:46 | disposition home or self-care (01) ==
LOC: EDUNIT# → ED 13:25
DX: R11.2 Nausea with vomiting, unspecified (principal); T45.1X5A Adverse effect of antineoplastic and immunosuppressive drugs, initial encounter; C34.90 Malignant neoplasm of unspecified part of unspecified bronchus or lung; E87.6 Hypokalemia; E87.1 Hypo-osmolality and hyponatremia; I10 Essential (primary) hypertension; F17.200 Nicotine dependence, unspecified, uncomplicated
CPT/HCPCS: 36415; 80053; 81001; 83690; 85025; 96365; 96366; 96367; 99283; 99284; A9270; J1170; J7040; 81003; 87086

== ENCOUNTER 2018-01-04 14:14 | Outpatient (CLI) | payer MEDICARE, MEDICAID ==
[2018-01-04 14:38] LABS: BASOPHILS % (AUTO) 0.5 %; EOSINOPHILS % (AUTO) 0.3 %; HGB - HEMOGLOBIN 11.2 g/dL (12.0-16.0); LYMPHOCYTES % (AUTO) 46.1 %; MEAN CORPUSCULAR HEMOGLOBIN 30.3 pg (27.0-31.0); MEAN CORPUSCULAR HGB CONC 34.6 g/dL (32.0-36.0); MEAN CORPUSCULAR VOLUME 87.4 fL (81.0-99.0); MEAN PLATELET VOLUME 7.1 fL (7.9-10.8); MONOCYTES # (AUTO) 0.2 10^3/uL (0.0-1.0); MONOCYTES % (AUTO) 10.2 %; NEUTROPHILS % (AUTO) 42.9 %; PLT - PLATELET COUNT 110 10^3/uL (130-450); RED BLOOD COUNT 3.69 10^6/uL (4.20-5.40); RED CELL DISTRIBUTION WIDTH 13.6 % (12.0-15.0); WHITE BLOOD COUNT 2.2 x10^3/uL (4.8-10.8)
[2018-01-04 14:52] LABS: ALBUMIN 3.7 g/dL (3.2-5.5); ALBUMIN/GLOBULIN RATIO 1.1 (1.0-2.2); BILIRUBIN,TOTAL 0.5 mg/dL (0.2-1.0); CALCIUM 8.8 mg/dL (8.5-10.3); CREATININE 0.9 mg/dL (0.4-1.0)
== END 2018-01-04 14:15 | disposition home or self-care (01) ==
LOC: LAB 14:14
DX: C34.91 Malignant neoplasm of unspecified part of right bronchus or lung (principal)
CPT/HCPCS: 80053; 85025

== ENCOUNTER 2018-03-02 18:07 | Emergency (ER) | payer MEDICARE, MEDICAID ==
[2018-03-02 18:13] VITALS: BP 133/70
--- NOTE | 2018-03-02 18:35 | ED Physician Documentation ---
History of Present Illness - Stated complaint Stated Complaint: STITCH REMOVAL - Chief complaint Chief Complaint: General - History obtained from History obtained from: Patient - History of Present Illness Timing: Other (She had an axillary lymph node dissection a couple of months ago that was complicated by seroma and eventually a drain. 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 HEENT: None Psych: Depression, Anxiety, Bipolar disorder, Panic attacks Musculoskeletal: Osteoarthritis, Fibromyalgia, Chronic back pain Derm: None - Past Surgical History Past Surgical History: Yes General: Bowel surgery /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 - Present Medications Home Medications: Ambulatory Orders Medication Instructions Recorded Confirmed Citalopram [CeleXA] 40 mg PO DAILY 01/29/13 02/13/17 Gabapentin 600 mg PO TID 01/29/13 02/13/17 Metoprolol Tartrate [Lopressor] 25 mg PO BID 01/29/13 02/13/17 Vitamin [Trinatal Rx 1] 1 each PO DAILY 01/29/13 02/13/17 QUEtiapine [SEROquel] 200 mg ORAL QPM 02/25/14 02/13/17 Meloxicam 15 mg PO DAILY 12/11/16 02/13/17 Ondansetron HCl [Zofran] 4 mg PO Q8HR PRN #30 tablet 12/24/17 Promethazine [Phenergan] 25 mg PO Q6H PRN #30 tab 12/24/17 Citalopram [CeleXA] 03/02/18 Gabapentin [Neurontin] 03/02/18 03/02/18 - Allergies Allergies/Adverse Reactions: Allergies Allergy/AdvReac Type Severity Reaction Status Date / Time Sulfa (Sulfonamide Allergy Itching Verified 12/24/17 13:31 Antibiotics) sulfamethoxazole Allergy Unknown Verified 12/24/17 13:31 [From ] trimethoprim [From ] Allergy Unknown Verified 03/02/18 18:12 - Social History Does the pt smoke?: Yes Smoking Status: Current every day smoker Does the pt drink ETOH?: Yes Does the pt have substance abuse?: No - Immunizations Immunizations are current?: Yes - POLST Patient has POLST: No PD ED PE NORMAL - Vitals Vital signs reviewed: Yes - General General: Alert and oriented X 3, No acute distress - Extremities Extremities: Other (In the right axilla there is a very deep silk suture, the knot is buried. No evidence of infection.) - Neuro Neuro: Alert and oriented X 3, Normal speech Results - Vitals Vitals: Vital Signs - 24 hr 03/02/18 18:10 Temperature 36.8 C Heart Rate 93 Respiratory 20 Rate Blood Pressure 133/70 H O2 Saturation 100 Oxygen O2 Source Room air Procedures - General procedure General procedure: She has required a little local anesthetic and wound exploration to get down to the knot of the silk suture in the right axilla, once it was found it was cut and removed without significant trauma. Departure - Departure Disposition: 01 Home, Self Care Clinical Impression: Seroma after procedure, Encounter for wound re-check Condition: Good Record reviewed to determine appropriate education?: Yes Instructions: ED Wound Check Sutr Remove No Infec Comments: Your blood pressure was elevated today on check into the emergency department. This does not mean that you have hypertension, it is a common phenomenon to come to the emergency department and have elevated blood pressure. I recommend that you see your primary care physician within the week to have it rechecked when you are feeling better.
== END 2018-03-02 18:43 | disposition home or self-care (01) ==
LOC: ED 18:07
DX: Z48.02 Encounter for removal of sutures (principal); L76.34 Postprocedural seroma of skin and subcutaneous tissue following other procedure; I10 Essential (primary) hypertension; F17.200 Nicotine dependence, unspecified, uncomplicated
CPT/HCPCS: 99281; 99282

== ENCOUNTER 2018-04-16 12:07 | Emergency (ER) | payer MEDICARE, MEDICAID ==
[2018-04-16] MEDS ORDERED: IOVERSOL 320 100 ML VIAL IVP ONE ×3 (12:08→16:17)
--- NOTE | 2018-04-16 13:56 | XRAY Report ---
Reason: soa, zhenlls Procedure Date: 04/16/2018 Accession Number: [id number] / [id number] Procedure: XR - Chest 2 View X-Ray CPT Code: 18938 FULL RESULT: EXAM: CHEST RADIOGRAPHY EXAM DATE: 04/16/2018 01:27 PM. CLINICAL HISTORY: Soa, chills. COMPARISON: XR CHEST PA AND LAT 05/06/2012 6:42 PM CHEST 09/08/2017 1:26 PM. TECHNIQUE: 2 views. FINDINGS: Lungs/Pleura: There is a linear density in the right upper lung. No acute infiltrate or consolidation is appreciated. No pneumothorax or pleural effusion is evident. The lungs are hyperinflated with flattening of the diaphragms and increase in the retrosternal clear space, consistent with her emphysema. Mediastinum: Cardiac and mediastinal silhouettes appear within normal limits. Other: There is a left chest port. IMPRESSION: 1. No acute infiltrate or consolidation is appreciated. 2. There is a linear density in the right upper lung which is new compared to chest radiograph from 2012. 3. The chest CT from August 2017 shows the presence of a right lung mass. If further evaluation of this known lung mass is desired, a chest CT would be useful. 4. Hyperinflated lungs. RADIA
[2018-04-16] MEDS ORDERED: predniSONE 20 MG TABLET PO STA (14:53)
[2018-04-16] MEDS ORDERED: IPRATROPIUM/ALBUTEROL 3 ML NEB INH STA (14:53)
[2018-04-16] MEDS ORDERED: DOXYCYCLINE 100 MG TABLET PO STA (14:53)
--- NOTE | 2018-04-16 14:56 | ED Physician Documentation ---
PD HPI URI - Stated complaint Stated Complaint: COUGH/EASILY WINDED - Chief complaint Chief Complaint: Resp - History obtained from History obtained from: Patient - History of Present Illness Timing - onset: Other (This is a 57-year-old woman with history of COPD and lung cancer undergoing chemotherapy who presents with 2 days of cough with some shortness of breath on exertion today. She has had some chills but no fever. There is no associated chest pain. She had abdominal cramps on the day it started but that is gone. She denies pedal edema or calf pain.) Review of Systems Constitutional: reports: Chills, Fatigue. denies: Fever Throat: denies: Dental pain / toothache, Sore throat Cardiac: denies: Chest pain / pressure, Palpitations Respiratory: reports: Dyspnea, Cough PD PAST MEDICAL HISTORY - Past Medical History Past Medical History: Yes Cardiovascular: Hypertension Respiratory: Other Neuro: Other Endocrine/Autoimmune: None GI: None CHANNELER: None HEENT: None Psych: Depression, Anxiety, Bipolar disorder, Panic attacks Musculoskeletal: Osteoarthritis, Fibromyalgia, Chronic back pain Derm: None Other Past Medical History: lung cancer - Past Surgical History Past Surgical History: Yes General: Bowel surgery /CHANNELER: Tubal ligation - Present Medications Home Medications: Ambulatory Orders Medication Instructions Recorded Confirmed Citalopram [CeleXA] 40 mg PO DAILY 01/29/13 02/13/17 Gabapentin 600 mg PO TID 01/29/13 02/13/17 Metoprolol Tartrate [Lopressor] 25 mg PO BID 01/29/13 02/13/17 Vitamin [Trinatal Rx 1] 1 each PO DAILY 01/29/13 02/13/17 QUEtiapine [SEROquel] 200 mg ORAL QPM 02/25/14 02/13/17 Meloxicam 15 mg PO DAILY 12/11/16 02/13/17 Ondansetron HCl [Zofran] 4 mg PO Q8HR PRN #30 tablet 12/24/17 Promethazine [Phenergan] 25 mg PO Q6H PRN #30 tab 12/24/17 Levofloxacin [Levaquin] 500 mg PO DAILY #7 tablet 04/16/18 guaiFENesin/CODEINE [Robitussin AC] 5 ml PO Q6H PRN #120 ml 04/16/18 predniSONE [Deltasone] 20 mg PO [id number] #21 tab 04/16/18 - Allergies Allergies/Adverse Reactions: Allergies Allergy/AdvReac Type Severity Reaction Status Date / Time Sulfa (Sulfonamide Allergy Itching Verified 04/16/18 12:31 Antibiotics) sulfamethoxazole Allergy Unknown Verified 04/16/18 12:31 [From ] trimethoprim [From ] Allergy Unknown Verified 04/16/18 12:31 - Social History Does the pt smoke?: Yes Smoking Status: Current every day smoker Does the pt drink ETOH?: Yes ETOH Use: Wine Does the pt have substance abuse?: No Substance Use and Type: Marijuana - Immunizations Immunizations are current?: Yes - POLST Patient has POLST: No PD ED PE NORMAL - Vitals Vital signs reviewed: Yes - General General: Alert and oriented X 3, No acute distress - HEENT HEENT: PERRL, EOMI - Neck Neck: Supple, no meningeal sign, No bony TTP - Cardiac Cardiac: RRR, No murmur - Respiratory Respiratory: Other (No respiratory distress. She has diminished breath sounds throughout with increased inspiratory to expiratory ratio and mild expiratory wheezes.) - Abdomen Abdomen: Non tender - Extremities Extremities: No edema, No calf tenderness / cord - Neuro Neuro: Alert and oriented X 3, Normal speech Results - Vitals Vitals: Vital Signs - 24 hr 04/16/18 04/16/18 12:29 15:05 Temperature 37.0 C Heart Rate 87 90 Respiratory 18 18 Rate Blood Pressure 126/84 H O2 Saturation 96 Oxygen O2 Source Room air - Labs Labs: Laboratory Tests 04/16/18 04/16/18 04/16/18 14:40 14:40 14:40 WBC 1.1 L* RBC 3.12 L Hgb 10.4 L Hct 30.1 L MCV 96.5 MCH 33.4 H MCHC 34.6 RDW 18.8 H Plt Count 185 MPV 6.9 L Neut # (Auto) Not Reportable Lymph # (Auto) Not Reportable [place] # (Auto) Not Reportable Eos # (Auto) Not Reportable Baso # (Auto) Not Reportable Absolute Nucleated RBC Not Reportable Total Counted 100 Band Neuts % (Manual) 2 Abnorm Lymph % (Manual) 0 Nucleated RBC % Not Reportable Neutrophils # (Manual) 0.3 L* Lymphocytes # (Manual) 0.4 L Monocytes # (Manual) 0.3 Eosinophils # (Manual) 0.0 Basophils # (Manual) 0.0 Differential Comment MANUAL DIFFERENTIAL WBC Morphology NORMAL APPEARANCE Platelet Estimate NORMAL (130-450,000) Platelet Morphology NORMAL APPEARANCE RBC Morph Micro Appear 1+ ANISOCYTOSIS Sodium 131 L Potassium 3.3 L Chloride 91 L Carbon Dioxide 30 Anion Gap 10.0 BUN 13 Creatinine 0.8 Estimated GFR (MDRD) 74 L Glucose 100 Lactic Acid 1.1 Calcium 9.0 Total Bilirubin 0.4 AST 43 H ALT 26 Alkaline Phosphatase 51 Total Protein 7.3 Albumin 4.0 Globulin 3.3 Albumin/Globulin Ratio 1.2 Lipase 27 Influenza A (Rapid) Influenza B (Rapid) 04/16/18 14:40 WBC RBC Hgb Hct MCV MCH MCHC RDW Plt Count MPV Neut # (Auto) Lymph # (Auto) [place] # (Auto) Eos # (Auto) Baso # (Auto) Absolute Nucleated RBC Total Counted Band Neuts % (Manual) Abnorm Lymph % (Manual) Nucleated RBC % Neutrophils # (Manual) Lymphocytes # (Manual) Monocytes # (Manual) Eosinophils # (Manual) Basophils # (Manual) Differential Comment WBC Morphology Platelet Estimate Platelet Morphology RBC Morph Micro Appear Sodium Potassium Chloride Carbon Dioxide Anion Gap BUN Creatinine Estimated GFR (MDRD) Glucose Lactic Acid Calcium Total Bilirubin AST ALT Alkaline Phosphatase Total Protein Albumin Globulin Albumin/Globulin Ratio Lipase Influenza A (Rapid) POSITIVE H Influenza B (Rapid) Negative - Rads (name of study) CT Chest Radiology: EMP read contemporaneously (No PE, decreased size of right upper lobe and right tracheal mass, moderate emphysema without pneumonia or pneumonitis.) PD MEDICAL DECISION MAKING - ED course ED course: This is a 57-year-old woman undergoing chemotherapy who presents with COPD exacerbation. Alternative diagnoses are considered but there is really nothing in the history or physical to suggest PE or cardiac compromise. The examination is very consistent with COPD. She is treated with steroids, antibiotics, and a breathing treatment here. Given the new neutropenia though I discussed the case with her oncologist, Dr. Herr in [place] who recommended a CT to evaluate for pneumonitis. Either way she will be on steroids. Departure - Departure Disposition: 01 Home, Self Care Clinical Impression: Bronchitis, Moderate COPD (chronic obstructive pulmonary disease) Lung cancer Qualifiers: Laterality: right Lung location: upper lobe of lung Qualified Code(s): C34.11 - Malignant neoplasm of upper lobe, right bronchus or lung Condition: Stable Record reviewed to determine appropriate education?: Yes Instructions: COPD Dc Prescriptions: guaiFENesin/CODEINE [Robitussin AC] 5 ml PO Q6H PRN #120 ml PRN Reason: Cough Levofloxacin [Levaquin] 500 mg PO DAILY #7 tablet predniSONE [Deltasone] 20 mg PO [id number] #21 tab Comments: Follow-up with your oncologist as scheduled. Return for new or worsening symptoms. It is imperative not to smoke tobacco in order for you to get better.
[2018-04-16 15:09] LABS: BASOPHILS % (AUTO) 0.1 %; EOSINOPHILS % (AUTO) 4.2 %; HGB - HEMOGLOBIN 10.4 g/dL (12.0-16.0); LYMPHOCYTES % (AUTO) 31.8 %; MEAN CORPUSCULAR HEMOGLOBIN 33.4 pg (27.0-31.0); MEAN CORPUSCULAR HGB CONC 34.6 g/dL (32.0-36.0); MEAN CORPUSCULAR VOLUME 96.5 fL (81.0-99.0); MEAN PLATELET VOLUME 6.9 fL (7.9-10.8); MONOCYTES % (AUTO) 31.9 %; PLT - PLATELET COUNT 185 10^3/uL (130-450); RED BLOOD COUNT 3.12 10^6/uL (4.20-5.40); RED CELL DISTRIBUTION WIDTH 18.8 % (12.0-15.0)
[2018-04-16 15:10] LABS: ALBUMIN/GLOBULIN RATIO 1.2 (1.0-2.2); BILIRUBIN,TOTAL 0.4 mg/dL (0.2-1.0); CREATININE 0.8 mg/dL (0.4-1.0); TOTAL PROTEIN 7.3 g/dL (6.7-8.2)
[2018-04-16 15:12] LABS: WHITE BLOOD COUNT 1.1 x10^3/uL (4.8-10.8)
[2018-04-16 15:13] LABS: ABNORMAL LYMPHS % (MANUAL) 0 %
[2018-04-16 16:28] LABS: BAND NEUTROPHILS % (MANUAL) 2 %; LYMPHOCYTES # (MANUAL) 0.4 10^3/uL (1.5-3.5); LYMPHOCYTES % (MANUAL) 38 %; MONOCYTES # (MANUAL) 0.3 10^3/uL (0.0-1.0); NEUTROPHILS # (MANUAL) 0.3 10^3/uL (1.5-6.6); NEUTROPHILS % (MANUAL) 28 %; PLATELET ESTIMATE, MANUAL NORMAL (130-450,000) (NORMAL); PLATELET MORPHOLOGY NORMAL APPEARANCE (NORMAL); RBC MORPHOLOGY (MULTIPLE) 1+ ANISOCYTOSIS (NORMAL)
[2018-04-16 16:29] LABS: DIFFERENTIAL COMMENT MANUAL DIFFERENTIAL
--- NOTE | 2018-04-16 16:32 | CT Report ---
Reason: dyspnea Procedure Date: 04/16/2018 Accession Number: [id number] / [id number] Procedure: CT - ANGIO CHEST W/WO CPT Code: FULL RESULT: EXAM: CT ANGIOGRAM CHEST EXAM DATE: 04/16/2018 04:07 PM. CLINICAL HISTORY: Dyspnea. COMPARISON: CHEST W/ 09/08/2017 1:26 PM. TECHNIQUE: Routine helical imaging was performed through the chest in the pulmonary arterial phase. IV Contrast: OPTI 320 60mL. Reconstructions: Coronal 3-D MIP reconstructions.Sagittal and coronal. In accordance with CT protocol optimization, one or more of the following dose reduction techniques were utilized for this exam: automated exposure control, adjustment of mA and/or KV based on patient size, or use of iterative reconstructive technique. FINDINGS: Pulmonary Arteries: Diagnostic quality: Adequate through the segmental arteries. Negative for acute pulmonary embolism. The right upper lobe pulmonary artery is narrowed at a mediastinal mass. Pulmonary artery is normal in size. Lungs/Pleura: There is moderately advanced diffuse centrilobular emphysema. There is a stellate nodule in the right upper lobe measuring 17 mm in diameter with a linear band of scar or atelectasis extending to the lateral superior right pleural surface. Mediastinum: The right paratracheal and anterior right hilar mass has decreased in size. This mass measures 41 x 26 mm on image 55 previously measuring 53 x 36 mm. Heart size is normal. There is no pericardial effusion. Thoracic Aorta: No thoracic aortic aneurysm. Upper Abdomen: There is an ovoid lesion located along the posterior surface of the right lobe of the liver which appears similar to previous. Other: There is a left-sided Port-A-Cath with tip in the superior vena cava. IMPRESSION: 1. Negative for acute pulmonary embolism. 2. Right upper lobe and right paratracheal mass have decreased in size compared with 09/08/2017. Presumedly representing malignancy responding to therapy. 3. Diffuse moderate centrilobular emphysema unchanged. 4. No acute pneumonia or edema. RADIA
[2018-04-16 17:15] VITALS: BP 178/91
== END 2018-04-16 17:29 | disposition home or self-care (01) ==
LOC: ED 12:07
DX: J44.1 Chronic obstructive pulmonary disease with (acute) exacerbation (principal); C34.11 Malignant neoplasm of upper lobe, right bronchus or lung; F17.200 Nicotine dependence, unspecified, uncomplicated; D70.9 Neutropenia, unspecified; I10 Essential (primary) hypertension
CPT/HCPCS: 36415; 71046; 71275; 80053; 83605; 83690; 85025; 87040; 87275; 87276; 94640; 99283; A9270; J7512; Q9967

== ENCOUNTER 2018-05-28 15:17 | Emergency (ER) | payer MEDICARE, MEDICAID ==
[2018-05-28] MEDS ORDERED: IOVERSOL 320 100 ML VIAL IVP ONE ×3 (15:18→19:07)
[2018-05-28] MEDS ORDERED: SODIUM CHLORIDE 0.9% 1,000 ML IV ONE (18:12)
[2018-05-28] MEDS ORDERED: LORazepam 2 MG/ML VIAL IVP STA (18:12)
--- NOTE | 2018-05-28 18:14 | ED Physician Documentation ---
PD HPI SYNCOPE - Stated complaint Stated Complaint: SCYNOPE/BP - Chief complaint Chief Complaint: Neuro - History obtained from History obtained from: Patient - History of Present Illness Timing - onset: Other (This is a 57-year-old woman with active lung cancer undergoing infusion chemotherapy via a left chest wall port who presents with a week's worth of right arm pain with movements, today she has had pain in the right axilla but denies shortness of breath. She is also getting weak and dizzy easily with a low blood pressure at home of 70/50. No injuries other than a bruise lip.) Review of Systems Ten Systems: 10 systems reviewed and negative Constitutional: reports: Fatigue, Weight Loss. denies: Fever, Chills Throat: denies: Dental pain / toothache, Sore throat Cardiac: reports: Chest pain / pressure. denies: Palpitations Respiratory: denies: Dyspnea, Cough PD PAST MEDICAL HISTORY - Past Medical History Cardiovascular: Hypertension Respiratory: Other Neuro: Other Endocrine/Autoimmune: None GI: None THEATRE MANAGER: None HEENT: None Psych: Depression, Anxiety, Bipolar disorder, Panic attacks Musculoskeletal: Osteoarthritis, Fibromyalgia, Chronic back pain Derm: None - Past Surgical History Past Surgical History: Yes General: Bowel surgery /THEATRE MANAGER: Tubal ligation - Present Medications Home Medications: Ambulatory Orders Medication Instructions Recorded Confirmed Citalopram [CeleXA] 40 mg PO DAILY 01/29/13 02/13/17 Gabapentin 600 mg PO TID 01/29/13 02/13/17 Metoprolol Tartrate [Lopressor] 25 mg PO BID 01/29/13 02/13/17 Vitamin [Trinatal Rx 1] 1 each PO DAILY 01/29/13 02/13/17 QUEtiapine [SEROquel] 200 mg ORAL QPM 02/25/14 02/13/17 Meloxicam 15 mg PO DAILY 12/11/16 02/13/17 Ondansetron HCl [Zofran] 4 mg PO Q8HR PRN #30 tablet 12/24/17 Promethazine [Phenergan] 25 mg PO Q6H PRN #30 tab 12/24/17 Levofloxacin [Levaquin] 500 mg PO DAILY #7 tablet 04/16/18 guaiFENesin/CODEINE [Robitussin AC] 5 ml PO Q6H PRN #120 ml 04/16/18 predniSONE [Deltasone] 20 mg PO [id number] #21 tab 04/16/18 - Allergies Allergies/Adverse Reactions: Allergies Allergy/AdvReac Type Severity Reaction Status Date / Time Sulfa (Sulfonamide Allergy Itching Verified 05/28/18 15:33 Antibiotics) sulfamethoxazole Allergy Unknown Verified 05/28/18 15:33 [From ] trimethoprim [From ] Allergy Unknown Verified 05/28/18 15:33 - Social History Does the pt smoke?: Yes Smoking Status: Current every day smoker Does the pt drink ETOH?: Yes Does the pt have substance abuse?: No - Immunizations Immunizations are current?: Yes - POLST Patient has POLST: No PD ED PE NORMAL - Vitals Vital signs reviewed: Yes - General General: Alert and oriented X 3, Other (She is histrionic and tearful) - HEENT HEENT: PERRL, EOMI - Neck Neck: Supple, no meningeal sign, No bony TTP - Cardiac Cardiac: No murmur, Other (Slightly tachycardic and hyperdynamic precordium, but she is very thin.) - Respiratory Respiratory: No respiratory distress, Clear bilaterally - Abdomen Abdomen: Non tender - Back Back: No CVA TTP, No spinal TTP - Derm Derm: Normal color, Warm and dry - Extremities Extremities: Other (Right arm without specific tenderness or limited range of motion, normal pulses.) - Neuro Neuro: Alert and oriented X 3, Normal speech Results - Vitals Vitals: Vital Signs - 24 hr 05/28/18 05/28/18 15:26 18:36 Temperature 36.6 C Heart Rate 107 H 104 H Respiratory 20 19 Rate Blood Pressure 137/91 H 180/82 H O2 Saturation 96 96 Oxygen O2 Source Room air - Labs Labs: Laboratory Tests 05/28/18 05/28/18 05/28/18 18:25 18:25 18:25 WBC 3.2 L RBC 3.06 L Hgb 10.4 L Hct 30.5 L MCV 99.7 H MCH 34.0 H MCHC 34.1 RDW 16.4 H Plt Count 257 MPV 6.9 L Neut # (Auto) 1.4 L Lymph # (Auto) 1.1 L [place] # (Auto) 0.6 Eos # (Auto) 0.1 Baso # (Auto) 0.0 Absolute Nucleated RBC 0.00 Nucleated RBC % 0.1 Sodium 134 L Potassium 4.3 Chloride 100 L Carbon Dioxide 23 Anion Gap 11.0 BUN 39 H Creatinine 1.5 H Estimated GFR (MDRD) 36 L Glucose 112 H Calcium 9.5 Total Bilirubin 0.6 AST 44 H ALT 40 Alkaline Phosphatase 64 Troponin I < 0.04 Total Protein 8.2 Albumin 4.4 Globulin 3.8 Albumin/Globulin Ratio 1.2 Lipase 26 - Rads (name of study) CT Angio Chest Radiology: EMP read contemporaneously (No PE, right mediastinum mass similar in size to prior, moderate emphysema, worsening posterior right lobe liver lesion and upper abdominal retroperitoneal adenopathy concerning for metastatic disease.) PD MEDICAL DECISION MAKING - ED course ED course: This is a 57-year-old woman with dizzy episodes. She is undergoing chemotherapy for lung cancer. She has a new right sided chest pain. PE is considered, but CT negative for same but growing right liver lesion. She also has evidence of acute kidney injury/dehydration for which she was given 2 L of crystalloid. Departure - Departure Disposition: 01 Home, Self Care Clinical Impression: Dizziness, Dehydration, Liver mass, right lobe Syncope Qualifiers: Syncope type: unspecified Qualified Code(s): R55 - Syncope and collapse Lung cancer Qualifiers: Laterality: right Lung location: middle lobe of lung Qualified Code(s): C34.2 - Malignant neoplasm of middle lobe, bronchus or lung Condition: Stable Record reviewed to determine appropriate education?: Yes Instructions: ED Dehydration Comments: Drink plenty fluids. Follow-up with your doctor in 2 days for recheck, consider repeat labs at that time. Also follow-up with your oncologist with a copy of the CAT scan and discuss the liver lesion in the right lobe which may represent metastatic disease which may be worsening. Return for new or worsening symptoms.
[2018-05-28 18:30] LABS: BASOPHILS % (AUTO) 0.1 %; EOSINOPHILS # (AUTO) 0.1 10^3/uL (0.0-0.7); EOSINOPHILS % (AUTO) 4.6 %; HGB - HEMOGLOBIN 10.4 g/dL (12.0-16.0); LYMPHOCYTES # (AUTO) 1.1 10^3/uL (1.5-3.5); LYMPHOCYTES % (AUTO) 33.3 %; MEAN CORPUSCULAR HGB CONC 34.1 g/dL (32.0-36.0); MEAN CORPUSCULAR VOLUME 99.7 fL (81.0-99.0); MEAN PLATELET VOLUME 6.9 fL (7.9-10.8); MONOCYTES # (AUTO) 0.6 10^3/uL (0.0-1.0); MONOCYTES % (AUTO) 19.3 %; NEUTROPHILS # (AUTO) 1.4 10^3/uL (1.5-6.6); NEUTROPHILS % (AUTO) 42.7 %; PLT - PLATELET COUNT 257 10^3/uL (130-450); RED BLOOD COUNT 3.06 10^6/uL (4.20-5.40); RED CELL DISTRIBUTION WIDTH 16.4 % (12.0-15.0); WHITE BLOOD COUNT 3.2 x10^3/uL (4.8-10.8)
[2018-05-28 18:42] LABS: ALBUMIN 4.4 g/dL (3.2-5.5); ALBUMIN/GLOBULIN RATIO 1.2 (1.0-2.2); BILIRUBIN,TOTAL 0.6 mg/dL (0.2-1.0); CALCIUM 9.5 mg/dL (8.5-10.3); CREATININE 1.5 mg/dL (0.4-1.0); TOTAL PROTEIN 8.2 g/dL (6.7-8.2)
[2018-05-28] MEDS ORDERED: LACTATED RINGERS 1,000 ML IV STA (18:50)
--- NOTE | 2018-05-28 19:34 | CT Report ---
Reason: chest pain, active lung CA Procedure Date: 05/28/2018 Accession Number: [id number] / [id number] Procedure: CT - ANGIO CHEST W/WO CPT Code: FULL RESULT: EXAM: CT ANGIOGRAM CHEST EXAM DATE: 05/28/2018 07:06 PM. CLINICAL HISTORY: Chest pain, active lung CA. COMPARISON: CHEST ANGIO 04/16/2018 3:57 PM. TECHNIQUE: Routine helical imaging was performed through the chest in the pulmonary arterial phase. IV Contrast: ISOVUE 300 80mL. Reconstructions: Coronal 3-D MIP reconstructions.Sagittal and coronal. In accordance with CT protocol optimization, one or more of the following dose reduction techniques were utilized for this exam: automated exposure control, adjustment of mA and/or KV based on patient size, or use of iterative reconstructive technique. FINDINGS: Pulmonary Arteries: Diagnostic quality: Adequate through the segmental arteries. Negative for acute pulmonary embolism. Right upper lobe pulmonary arteries are narrowed by right paratracheal and right upper lobe mass. Lungs/Pleura: There is moderate emphysema. There is right upper lobe atelectasis. There is endobronchial obstruction in the right upper lobe with endobronchial secretions in the apical and anterior segmental airways. Negative for pleural effusion. Mediastinum: There is a soft tissue mass in the right mediastinum surrounding the superior vena cava. This mass has broad contact with the ascending thoracic aorta and measures 44 x 22 mm and appears similar in size. A subcarinal lymph node has decreased in size. Heart size is normal. No pericardial effusion. Thoracic Aorta: No aneurysm or dissection. Upper Abdomen: There is retroperitoneal lymphadenopathy within the upper abdomen. There is a lobulated hypodense mass located posterior to the right lobe of the liver measuring 72 x 28 mm on axial images, similar. Other: None. IMPRESSION: 1. Negative for acute pulmonary embolism. 2. Right mediastinal mass surrounding superior vena cava appears similar in size. 3. Moderate emphysema. 4. Upper abdominal retroperitoneal lymphadenopathy and lesion posterior to the right lobe of the liver suspicious for metastatic disease 5. Subcarinal lymph node has decreased in size since previous. RADIA
[2018-05-28 20:34] VITALS: BP 157/83
== END 2018-05-28 20:50 | disposition home or self-care (01) ==
LOC: ED 15:17
DX: R42 Dizziness and giddiness (principal); E86.0 Dehydration; R16.0 Hepatomegaly, not elsewhere classified; R55 Syncope and collapse; C34.2 Malignant neoplasm of middle lobe, bronchus or lung; I10 Essential (primary) hypertension; F17.200 Nicotine dependence, unspecified, uncomplicated; Z79.899 Other long term (current) drug therapy
CPT/HCPCS: 36415; 71275; 80053; 83690; 84484; 85025; 93005; 96361; 96374; 99284; J2060; J7120; Q9967

== ENCOUNTER 2018-11-21 15:08 | Outpatient (CLI) | payer MEDICARE, MEDICAID ==
--- NOTE | 2018-11-21 16:48 | Mammography Report ---
Reason: SCREENING MAMMO Procedure Date: 11/21/2018 Accession Number: [id number] / [id number] Procedure: [facility]DRA - Screening Mammo w/Christopher CPT Code: FULL RESULT: EXAM: Screening Mammo w/Christopher DATE: 11/21/2018 4:13 PM CLINICAL HISTORY: Screening TECHNIQUE: (B) - Bilateral CC and MLO views were obtained. COMPARISON: 11/02/2017, 01/28/2015 PARENCHYMAL PATTERN: (VD) - The breasts demonstrate extremely dense parenchyma bilaterally, limiting the sensitivity of mammography. FINDINGS: There are no suspicious masses, calcifications, or areas of distortion. IMPRESSION: Negative examination. BI-RADS category 1. RECOMMENDATION: (ANNUAL) - Recommend routine annual screening mammography. BI-RADS CATEGORY: (1) - Negative. STANDARD QUALIFYING STATEMENTS: 1. This examination was not reviewed with the aid of Computer-Aided Detection (CAD). 2. A negative or benign imaging report should not preclude biopsy if clinically suspicious findings are present. 3. Dense breasts may obscure an underlying neoplasm. 4. This examination was reviewed with the aid of 3D breast imaging (tomosynthesis).
== END 2018-11-21 15:09 | disposition home or self-care (01) ==
LOC: DI 15:08
DX: Z12.31 Encounter for screening mammogram for malignant neoplasm of breast (principal)
CPT/HCPCS: 77063; 77067

== ENCOUNTER 2018-11-28 16:16 | Outpatient (CLI) | payer MEDICARE, MEDICAID ==
--- NOTE | 2018-12-01 21:22 | XRAY Report ---
Reason: THUMB PAIN, LEFT Procedure Date: 11/28/2018 Accession Number: [id number] / [id number] Procedure: XR - Finger(s) LT CPT Code: FULL RESULT: EXAM: LEFT 1st/2nd/3rd/4th/5th DIGIT RADIOGRAPHY EXAM DATE: 11/28/2018 04:35 PM. CLINICAL HISTORY: THUMB PAIN, LEFT. COMPARISON: None. TECHNIQUE: 3 views. FINDINGS: Bones: No fracture or bone lesion. Joints: No subluxations. Soft Tissues: No soft tissue swelling. IMPRESSION: No evidence for acute osseous injury. RADIA
== END 2018-11-28 16:17 | disposition home or self-care (01) ==
LOC: DI 16:16
PROVIDERS: ATTEND Physician Assistant
DX: M79.645 Pain in left finger(s) (principal)
CPT/HCPCS: 73140

== ENCOUNTER 2019-01-14 08:00 | Outpatient (CLI) | payer MEDICARE, MEDICAID | END 2019-01-14 23:59 | disposition home or self-care (01) | LOC: LAB.R 08:00 | PROVIDERS: ATTEND Physician Assistant | DX: J02.9 Acute pharyngitis, unspecified (principal) | CPT/HCPCS: 87070 ==

== ENCOUNTER 2019-04-25 06:48 | Outpatient (CLI) | payer MEDICARE, MEDICAID ==
--- NOTE | 2019-04-25 15:55 | Ultrasound Report ---
Reason: HYPERTENSION Procedure Date: 04/25/2019 Accession Number: [id number] / [id number] Procedure: US - Arterial Visceral Complete CPT Code: Final Report FULL RESULT: EXAM: RENAL ARTERY DOPPLER ULTRASOUND. EXAM DATE: 04/25/2019 08:01 AM. CLINICAL HISTORY: Hypertension. COMPARISON: None. TECHNIQUE: Real-time sonographic vascular imaging was performed by the hypercil core transformer assembler through the renal arterial system with a linear transducer utilizing color-flow, Doppler flow, and spectral analysis. Multiple petroleum products sales representative static images were saved for review. FINDINGS: 2 hepatic cysts in the right lobe are noted measuring up to 6.5 and up to 3.5 cm respectively, no solid soft tissue component. Right Kidney: 9.4 x 5.1 x 3.7 cm. Echotexture: Within normal limits. Right Segmental Artery: Upper pole: PSV 16.8 cm/sec, RI 0.62. Mid pole: PSV 25.6 cm/sec, RI 0.70. Lower pole: PSV 22.9 cm/sec, RI 0.69. Right Renal Artery: Origin: PSV 114 cm/sec, RA/AO 1.97. Proximal: PSV 121 cm/sec, RA/AO 2.09. Mid: PSV 123 cm/sec, RA/AO 2.12. Distal: PSV 130 cm/sec, RA/AO 2.24. Aorta PSV: 58 cm/sec. RRV Patent: Yes. Left Kidney: 9.3 x 4.7 x 4.3 cm. Echotexture: Within normal limits. Left Segmental Artery: Upper pole: PSV 19 cm/sec, RI 0.68. Mid pole: PSV 22.1 cm/sec, RI 0.67. Lower pole: PSV 15.9 cm/sec, RI 0.68. Left Renal Artery: Origin: PSV 100 cm/sec, RA/AO 1.72. Proximal: PSV 96 cm/sec, RA/AO 1.66. Mid: PSV 132 cm/sec, RA/AO 2.28. Distal: PSV 101 cm/sec, RA/AO 1.74. LRV Patent: Yes. IMPRESSION: No evidence of renal artery stenosis. CRITERIA FOR CLASSIFICATION OF RENAL ARTERY (RA) DISEASE BY DUPLEX SCANNING: RA Diameter Reduction/ RA PSV/ RAR: Normal, < 180 cm/sec, < 3.5 < 60%, >= 180 cm/sec, < 3.5 >= 60%, >= 180 cm/sec, >= 3.5 Total Occlusion: Undetectable; Not applicable RADIA
== END 2019-04-25 06:49 | disposition home or self-care (01) ==
LOC: DI 06:48
PROVIDERS: ATTEND Physician Assistant
DX: I10 Essential (primary) hypertension (principal)
CPT/HCPCS: 93975

== ENCOUNTER 2019-10-17 17:05 | Emergency (ER) | payer MEDICARE, MEDICAID ==
[2019-10-17 17:40] LABS: BILIRUBIN,URINE NEGATIVE (NEGATIVE); GLUCOSE, URINE (UA) NEGATIVE (NEGATIVE); KETONES,URINE (UA) NEGATIVE (NEGATIVE); LEUKOCYTE ESTERASE, URINE TRACE (NEGATIVE); NITRITE,URINE NEGATIVE (NEGATIVE); OCCULT BLOOD,URINE NEGATIVE (NEGATIVE); PROTEIN,URINE NEGATIVE (NEGATIVE); UROBILINOGEN,URINE 0.2 (NORMAL) E.U./dL (NORMAL)
--- NOTE | 2019-10-17 17:43 | ED Physician Documentation ---
History of Present Illness - Stated complaint Stated Complaint: CENTRAL ABD PX - Additonal information Additional information: 59-year-old female presents to the emergency department for evaluation of generalized abdominal pain for the last 4 to 5 days. She reports that she has b een cramping gassy and bloated. She also notices that she is producing very little stool. She does report a history of a bowel obstruction secondary to a twist in 1978 that required surgical resection. She is currently 1 year cancer free from metastatic lung cancer that was treated in [place]. She reports that she received chemotherapy and immune therapy. Metastasis was to 1 lymph node only. She does follow-up with oncology in [place] Patient denies any fevers vomiting melena or hematochezia. She has no dysuria urgency or frequency. She denies any significant weight loss but does endorse anorexia. Review of Systems Constitutional: denies: Fever, Chills Eyes: denies: Loss of vision, Decreased vision Ears: denies: Loss of hearing Cardiac: denies: Chest pain / pressure, Palpitations, Pedal edema Respiratory: denies: Dyspnea GI: reports: Abdominal Pain, Nausea, Constipation, Other (anorexia). denies: Abdominal Swelling, Vomiting, Diarrhea, Hematemesis, Bloody / black stool : denies: Dysuria, Frequency Skin: denies: Rash, Lesions Musculoskeletal: denies: Neck pain, Back pain Neurologic: reports: Generalized weakness, Numbness, Difficulty speaking, Syncope, Seizure, Confused Psychiatric: reports: Depressed, Suicidal PD PAST MEDICAL HISTORY - Past Medical History Cardiovascular: Hypertension Respiratory: Other Neuro: Other Endocrine/Autoimmune: None GI: None TIP STRETCHER: None HEENT: None Psych: Depression, Anxiety, Bipolar disorder, Panic attacks Musculoskeletal: Osteoarthritis, Fibromyalgia, Chronic back pain Derm: None - Past Surgical History Past Surgical History: Yes General: Bowel surgery /TIP STRETCHER: Tubal ligation - Present Medications Home Medications: Ambulatory Orders Medication Instructions Recorded Confirmed Citalopram [CeleXA] 40 mg PO DAILY 01/29/13 02/13/17 Gabapentin 600 mg PO TID 01/29/13 02/13/17 Metoprolol Tartrate [Lopressor] 25 mg PO BID 01/29/13 02/13/17 Vitamin [Trinatal Rx 1] 1 each PO DAILY 01/29/13 02/13/17 QUEtiapine [SEROquel] 200 mg ORAL QPM 01/06/15 12/25/17 Meloxicam 15 mg PO DAILY 12/11/16 02/13/17 Ondansetron HCl [Zofran] 4 mg PO Q8HR PRN #30 tablet 12/24/17 Promethazine [Phenergan] 25 mg PO Q6H PRN #30 tab 12/24/17 Levofloxacin [Levaquin] 500 mg PO DAILY #7 tablet 04/16/18 guaiFENesin/CODEINE [Robitussin AC] 5 ml PO Q6H PRN #120 ml 04/16/18 predniSONE [Deltasone] 20 mg PO [id number] #21 tab 04/16/18 HYDROcod/ACETAM 5/325 [[place] 5/325] 1 each PO BID #10 tablet 10/17/19 Omeprazole 20 mg PO BID #60 capsule. 10/17/19 Polyethylene Glycol 3350 [Miralax] 17 gm PO DAILY PRN #1 bottle 10/17/19 - Allergies Allergies/Adverse Reactions: Allergies Allergy/AdvReac Type Severity Reaction Status Date / Time aloe Allergy Itching Verified 10/17/19 17:13 Bleach (Sodium Hypochlorite) Allergy Hives Verified 10/17/19 17:13 Sulfa (Sulfonamide Allergy Itching Verified 10/17/19 17:13 Antibiotics) sulfamethoxazole Allergy Unknown Verified 10/17/19 17:13 [From ] trimethoprim [From ] Allergy Unknown Verified 10/17/19 17:13 - Social History Does the pt smoke?: Yes Smoking Status: Current every day smoker Does the pt drink ETOH?: Yes Does the pt have substance abuse?: No - Immunizations Immunizations are current?: Yes - POLST Patient has POLST: No PD ED PE EXPANDED - General General: Alert, No acute distress, Well developed/nourished. No: Anxious, In Pain - Neck Neck: Supple w/out meningeal sx. No: Adenopathy - Cardiac Cardiac: Regular Rate, Radial strong equal, Pedal strong equal, Cap refill < 2 sec. No: Murmur Present - Respiratory Respiratory: Clear to ausultation vivien. No: Distress, Labored - Abdomen Abdomen: Normal Bowel sounds, Tender to palpation (generalized non focal abdomianl pain; non peritoneal. no rebound or guarding) - Derm Derm: Normal color, Pale. No: Warm and dry - Extremities Extremities: Normal. No: Pedal edema bilateral - Neuro Neuro: Alert and Oriented X 3, CNII-XII intact, CN deficit. No: Confused, Disoriented - GCS Eye Opening: Spontaneous Motor: Obeys Commands Verbal: Oriented Total: 15 Results - Vitals Vitals: Vital Signs - 24 hr 10/17/19 10/17/19 17:10 19:24 Temperature 36.7 C Heart Rate 83 86 Respiratory 16 18 Rate Blood Pressure 156/82 H 171/93 H O2 Saturation 98 98 Oxygen O2 Source Room air - Labs Labs: Laboratory Tests 10/17/19 10/17/19 10/17/19 17:20 17:55 18:15 WBC 7.5 RBC 4.20 Hgb 13.8 Hct 40.1 MCV 95.5 MCH 32.9 H MCHC 34.4 RDW 12.8 Plt Count 260 MPV 9.8 Neut # (Auto) 4.8 Lymph # (Auto) 1.8 [place] # (Auto) 0.6 Eos # (Auto) 0.2 Baso # (Auto) 0.1 Absolute Nucleated RBC 0.00 Nucleated RBC % 0.0 Sodium 132 L Potassium 4.9 Chloride 92 L Carbon Dioxide 30 Anion Gap 10.0 BUN 17 Creatinine 1.2 H Estimated GFR (MDRD) 46 L Glucose 101 H Calcium 9.8 Total Bilirubin 0.5 AST 22 ALT 14 Alkaline Phosphatase 64 Total Protein 7.6 Albumin 4.6 Globulin 3.0 Albumin/Globulin Ratio 1.5 Lipase 29 Urine Color YELLOW Urine Clarity CLEAR Urine pH 7.0 Ur Specific [place] 1.010 Urine Protein NEGATIVE Urine Glucose (UA) NEGATIVE Urine Ketones NEGATIVE Urine Occult Blood NEGATIVE Urine Nitrite NEGATIVE Urine Bilirubin NEGATIVE Urine Urobilinogen 0.2 (NORMAL) Ur Leukocyte Esterase TRACE H Urine RBC None Seen Urine WBC 0-3 Ur Squamous Epith Cells FEW Squamous Urine Bacteria Rare Ur Microscopic Review INDICATED Urine Culture Comments INDICATED - Rads (name of study) CT abd Radiology: Final report received (Wall thickening of the gastric antrum consistent with gastritis/peptic ulcer disease. No evidence of perforation. 6.6 cm right posterior liver cyst. Mild obstipation but no bowel obstruction.) PD MEDICAL DECISION MAKING - ED course Complexity details: re-evaluated patient, considered differential, d/w patient ED course: 59-year-old female presents to the emergency department for evaluation of 4 to 5 days abdominal pain that is generalized and nonfocal. She does have a history of a bowel obstruction in 1978 that required resection and anastomosis. She is also a lung cancer survivor with a history of being cancer free for 1 year. - Patient's labs are reviewed in full. She has no significant leukocytosis. Normal renal and liver panels. CT scan was completed given her history of cancer. CT scan does show thickening in the gastric antrum most consistent with gastritis or peptic ulcer disease. She does appear obstipated but there is no bowel obstruction. I discussed these findings with the patient. We will plan to discharge her with a prescription for PPI. She is to follow-up very closely with her primary care doctor. She may benefit from a GI referral for EGD. I have also advised that she should take MiraLAX to help with obstipation. She is to return to the emergency department for fevers, suddenly severe or different abdominal pain with bloody stools Departure - Departure Disposition: Home, Self Care Clinical Impression: Gastritis Qualifiers: Gastritis type: unspecified gastritis Chronicity: acute Gastritis bleeding: without bleeding Qualified Code(s): K29.00 - Acute gastritis without bleeding Constipation Qualifiers: Constipation type: other constipation type Qualified Code(s): K59.09 - Other constipation Abdominal pain Qualifiers: Abdominal location: generalized Qualified Code(s): R10.84 - Generalized abdominal pain Condition: Stable Record reviewed to determine appropriate education?: Yes Instructions: Abdominal Pain, ED Gastritis, ED Constipation Follow-Up: Vandana Lemos PA [Primary Care Provider] - Prescriptions: Polyethylene Glycol 3350 [Miralax] 17 gm PO DAILY PRN #1 bottle PRN Reason: Constipation HYDROcod/ACETAM 5/325 [[place] 5/325] 1 each PO BID #10 tablet Omeprazole 20 mg PO BID #60 capsule. Comments: Your CT scan today shows that you are most likely developing gastritis or peptic ulcer disease. Please begin taking the omeprazole twice daily as prescribed. You also appear constipated. I would like you to begin taking the MiraLAX. If at any point you develop suddenly severe or different abdominal pain have black or bloody stools or uncontrolled fevers please return to the emergency department for second look. I would like you to see your primary care doctor in follow-up. You may benefit from referral to a GI doctor for an EGD.
[2019-10-17 17:46] LABS: CLARITY,URINE CLEAR (CLEAR)
[2019-10-17 17:49] LABS: BACTERIA,URINE Rare /HPF (None Seen); RBC,URINE None Seen /HPF (0-5); SQUAMOUS EPITHELIAL CELL,UR FEW Squamous (<= Few)
[2019-10-17 18:03] LABS: BASOPHILS # (AUTO) 0.1 10^3/uL (0.0-0.1); BASOPHILS % (AUTO) 1.1 %; EOSINOPHILS # (AUTO) 0.2 10^3/uL (0.0-0.7); EOSINOPHILS % (AUTO) 2.8 %; HGB - HEMOGLOBIN 13.8 g/dL (12.0-16.0); LYMPHOCYTES # (AUTO) 1.8 10^3/uL (1.5-3.5); LYMPHOCYTES % (AUTO) 23.8 %; MEAN CORPUSCULAR HEMOGLOBIN 32.9 pg (27.0-31.0); MEAN CORPUSCULAR HGB CONC 34.4 g/dL (32.0-36.0); MEAN CORPUSCULAR VOLUME 95.5 fL (81.0-99.0); MEAN PLATELET VOLUME 9.8 fL (7.9-10.8); MONOCYTES # (AUTO) 0.6 10^3/uL (0.0-1.0); MONOCYTES % (AUTO) 8.2 %; NEUTROPHILS # (AUTO) 4.8 10^3/uL (1.5-6.6); NEUTROPHILS % (AUTO) 63.8 %; PLT - PLATELET COUNT 260 10^3/uL (130-450); RED CELL DISTRIBUTION WIDTH 12.8 % (12.0-15.0); WHITE BLOOD COUNT 7.5 x10^3/uL (4.8-10.8)
[2019-10-17 18:33] LABS: ALBUMIN 4.6 g/dL (3.2-5.5); ALBUMIN/GLOBULIN RATIO 1.5 (1.0-2.2); BILIRUBIN,TOTAL 0.5 mg/dL (0.2-1.0); CALCIUM 9.8 mg/dL (8.5-10.3); CREATININE 1.2 mg/dL (0.4-1.0); TOTAL PROTEIN 7.6 g/dL (6.7-8.2)
[2019-10-17] MEDS ORDERED: IOVERSOL 320 100 ML VIAL IVP ONE ×2 (18:42→19:13)
--- NOTE | 2019-10-17 19:30 | CT Report ---
PROCEDURE: Abdomen/Pelvis W INDICATIONS: abdominal pain; hx of sbo; hx of cancer CONTRAST: IV CONTRAST: Optiray 320 ml: 100 PO CONTRAST: *NO PO CONTRAST TECHNIQUE: After the administration of 100 cc Optiray 320 IV contrast, 5 mm thick sections acquired from the caridad phragms to the symphysis. 5 mm thick coronal and sagittal reformats were acquired. For radiation do se reduction, the following was used: automated exposure control, adjustment of mA and/or kV accordi ng to patient size. COMPARISON: None. FINDINGS: Image quality: Excellent. ABDOMEN: Lung bases: Lung bases are clear. Heart size is normal. Solid organs: Liver and spleen are normal in size and enhancement. There is a lobulated subcapsular, partially exophytic cyst arising along the posterior margin of the liver measuring roughly 6.5 x 4.0 x 6.6 cm. The liver is otherwise normal. Gallbladder is partially decompressed and has an unremarkab le appearance. Biliary system is non dilated. Pancreas enhances normally. No adrenal nodules. Kid neys demonstrate normal size and enhancement, without hydronephrosis. Occasional left renal cysts. Peritoneum and bowel: There is circumferential wall thickening of the gastric antrum with mild mucos al hyperemia. No perigastric inflammation or extraluminal gas. Small bowel is normal to decompressed and caliber. Normal to increased quantity of solid stool present throughout the colon. Appendix was n ot identified but no right lower quadrant inflammation. Bowel loops demonstrate normal wall thickness and caliber. No free fluid or air. Nodes and vessels: No retroperitoneal or mesenteric adenopathy by size criteria. Aorta and inferior vena cava are normal in size. Miscellaneous: No ventral hernias. PELVIS: Genitourinary: Bladder wall thickness is normal. The uterus is normal. Miscellaneous: No inguinal hernias or adenopathy. Bones: No suspicious bony lesions. No vertebral body compression fractures. Degenerative disc heig ht loss at L5-S1. IMPRESSION: 1. Wall thickening of the gastric antrum consistent with gastritis/peptic ulcer disease. No evidence of perforation. 2. 6.6 cm right posterior liver cyst. 3. Mild obstipation. No small bowel obstruction. Reviewed by: Brandi Yoder MD on 10/17/2019 7:29 PM PDT Approved by: Brandi Yoder MD on 10/17/2019 7:29 PM PDT Station ID: [id number]
[2019-10-17 20:11] VITALS: BP 152/98
== END 2019-10-17 20:11 | disposition home or self-care (01) ==
LOC: ED 17:05
DX: K29.00 Acute gastritis without bleeding (principal); K59.09 Other constipation; F17.200 Nicotine dependence, unspecified, uncomplicated; Z85.118 Personal history of other malignant neoplasm of bronchus and lung
CPT/HCPCS: 36415; 74177; 80053; 81001; 83690; 85025; 87086; 96374; 99284; Q9967; 81003

== ENCOUNTER 2020-05-20 08:00 | Outpatient (CLI) | payer MEDICARE, MEDICAID ==
[2020-05-20 18:41] LABS: CHOL/HDL RATIO 2.7 (<4.4); CHOLESTEROL 238 mg/dL; CRP - C-REACTIVE PROTEIN 1.2 mg/dL (0-1.0); HDL CHOLESTEROL 87 mg/dL; LDL CHOLESTEROL,CALCULATED 110 mg/dL; LDL/HDL RATIO 1.3 (<4.4); TRIGLYCERIDES 203 mg/dL; VLDL CHOLESTEROL 41 mg/dL
[2020-05-20 19:45] LABS: RHEUMATOID FACTOR NEGATIVE (Negative)
[2020-05-20 20:10] LABS: ESTIMATED AVERAGE GLUCOSE 120 mg/dL (70-100); HEMOGLOBIN A1c% 5.8 % (4.27-6.07)
== END 2020-05-20 23:59 | disposition home or self-care (01) ==
LOC: LAB.WCP 08:00
PROVIDERS: ATTEND Family Medicine
DX: M79.645 Pain in left finger(s) (principal); Z79.899 Other long term (current) drug therapy
CPT/HCPCS: 36415; 80061; 83036; 83721; 84550; 85651; 86140; 86430

== ENCOUNTER 2020-12-05 17:18 | Outpatient (CLI) | payer MEDICARE, MEDICAID | END 2020-12-05 17:19 | disposition critical access hospital (66) | LOC: EMS 17:18 | DX: R19.7 Diarrhea, unspecified (principal) | CPT/HCPCS: A0425; A0429 ==

== ENCOUNTER 2020-12-05 18:01 | Inpatient (IN) | payer MEDICARE, MEDICAID ==
[2020-12-05] MEDS ORDERED: SODIUM CHLORIDE 0.9% 1,000 ML IV STA (18:22)
[2020-12-05] MEDS ORDERED: KETOROLAC 15 MG/ML VIAL IVP STA (18:22)
[2020-12-05] MEDS ORDERED: LOPERAMIDE 2 MG CAPSULE PO STA (18:22)
--- NOTE | 2020-12-05 18:24 | ED Physician Documentation ---
PD HPI ABD PAIN - Stated complaint Stated Complaint: DIARRHEA - Chief complaint Chief Complaint: Abd Pain - History obtained from History obtained from: Patient - Additional information Additional information: 60-year-old woman with history of bowel obstruction, fibromyalgia and chronic pain presents with abrupt onset diarrhea starting at 4 AM associated with chills myalgias. She is fully immunized against Covid. No sick contacts or recent travel. Review of Systems Ten Systems: 10 systems reviewed and negative Constitutional: reports: Chills Throat: reports: Reviewed and negative Cardiac: reports: Reviewed and negative Respiratory: reports: Reviewed and negative GI: reports: Diarrhea. denies: Abdominal Pain, Nausea, Vomiting PD PAST MEDICAL HISTORY - Past Medical History Cardiovascular: Hypertension Respiratory: Other Neuro: Other Endocrine/Autoimmune: None GI: None CHECKOUT OPERATOR: None HEENT: None Psych: Depression, Anxiety, Bipolar disorder, Panic attacks Musculoskeletal: Osteoarthritis, Fibromyalgia, Chronic back pain Derm: None - Past Surgical History Past Surgical History: Yes General: Bowel surgery /CHECKOUT OPERATOR: Tubal ligation - Present Medications Home Medications: Ambulatory Orders Medication Instructions Recorded Confirmed Citalopram [CeleXA] 40 mg PO DAILY 01/29/13 02/13/17 Gabapentin 600 mg PO TID 01/29/13 02/13/17 Metoprolol Tartrate [Lopressor] 25 mg PO BID 01/29/13 02/13/17 Vitamin [Trinatal Rx 1] 1 each PO DAILY 01/29/13 02/13/17 QUEtiapine [SEROquel] 200 mg ORAL QPM 02/25/14 02/13/17 Meloxicam 15 mg PO DAILY 12/11/16 02/13/17 Ondansetron HCl [Zofran] 4 mg PO Q8HR PRN #30 tablet 12/24/17 Promethazine [Phenergan] 25 mg PO Q6H PRN #30 tab 12/24/17 guaiFENesin/CODEINE [Robitussin AC] 5 ml PO Q6H PRN #120 ml 04/16/18 levoFLOXacin [Levaquin] 500 mg PO DAILY #7 tablet 04/16/18 predniSONE [Deltasone] 20 mg PO [id number] #21 tab 04/16/18 HYDROcod/ACETAM 5/325 [[place] 5/325] 1 each PO BID #10 tablet 10/17/19 Omeprazole 20 mg PO BID #60 capsule. 10/17/19 polyethylene glycoL 3350 [Miralax] 17 gm PO DAILY PRN #1 bottle 10/17/19 - Allergies Allergies/Adverse Reactions: Allergies Allergy/AdvReac Type Severity Reaction Status Date / Time aloe Allergy Itching Verified 12/05/20 18:22 Bleach (Sodium Hypochlorite) Allergy Hives Verified 12/05/20 18:22 Sulfa (Sulfonamide Allergy Itching Verified 12/05/20 18:22 Antibiotics) sulfamethoxazole Allergy Unknown Verified 12/05/20 18:22 [From ] trimethoprim [From ] Allergy Unknown Verified 12/05/20 18:22 - Social History Does the pt smoke?: Yes Smoking Status: Current every day smoker Does the pt drink ETOH?: Yes Does the pt have substance abuse?: No - Immunizations Immunizations are current?: Yes - POLST Patient has POLST: No PD ED PE NORMAL - Vitals Vital signs reviewed: Yes - General General: Alert and oriented X 3, Other (rigors) - HEENT HEENT: PERRL, EOMI - Neck Neck: Supple, no meningeal sign, No bony TTP - Cardiac Cardiac: Other (tachycardic regular) - Respiratory Respiratory: No respiratory distress, Clear bilaterally - Abdomen Abdomen: Normal bowel sounds, Non tender, Other (firm, exlap incision) - Back Back: No CVA TTP, No spinal TTP - Derm Derm: Normal color, Warm and dry - Extremities Extremities: No edema, No calf tenderness / cord - Neuro Neuro: Alert and oriented X 3, Normal speech Results - Vitals Vitals: Vital Signs - 24 hr 12/05/20 12/05/20 12/05/20 18:13 18:37 18:53 Temperature 35.9 C L 35.9 C L Heart Rate 111 H 111 H 100 Respiratory 20 22 16 Rate Blood Pressure 132/62 H 79/60 L 159/100 H O2 Saturation 99 96 100 12/05/20 12/05/20 20:27 21:30 Temperature 37.3 C Heart Rate 108 H 108 H Respiratory 16 14 Rate Blood Pressure 108/97 H 141/90 H O2 Saturation 97 96 Oxygen O2 Source Room air - EKG (time done) 1838 Rate: Rate (enter#) (106) Rhythm: Sinus tachycardia, ARMANDO [place]: Normal Intervals: Normal IN QRS: LVH Ischemia: Normal ST segments - Labs Labs: Microbiology 12/05/20 19:03 Occult Blood - Final Stool Laboratory Tests 12/05/20 12/05/20 12/05/20 18:43 18:43 18:43 WBC 12.4 H RBC 3.75 L Hgb 11.6 L Hct 35.1 L MCV 93.6 MCH 30.9 MCHC 33.0 RDW 13.8 Plt Count 301 MPV 10.4 Neut # (Auto) 9.6 H Lymph # (Auto) 2.0 [place] # (Auto) 0.6 Eos # (Auto) 0.1 Baso # (Auto) 0.1 Absolute Nucleated RBC 0.00 Nucleated RBC % 0.0 PT INR Sodium 132 L Potassium 4.7 Chloride 96 L Carbon Dioxide 25 Anion Gap 11.0 BUN 71 H Creatinine 1.1 H Estimated GFR (MDRD) 50 L Glucose 185 H Calcium 8.9 Magnesium 1.7 Total Bilirubin 0.7 AST 22 ALT 12 Alkaline Phosphatase 43 Total Protein 6.8 Albumin 4.1 Globulin 2.7 Albumin/Globulin Ratio 1.5 Lipase 33 Nasal Adenovirus (PCR) Nasal B. parapertussis DNA (PCR) Nasal Coronavir 229E PCR Nasal Coronavir HKU1 PCR Nasal Coronavir NL63 PCR Nasal Coronavir OC43 PCR Nasal Enterovir/Rhinovir PCR Nasal Influenza B PCR Nasal Influenza A PCR Nasal Parainfluen 1 PCR Nasal Parainfluen 2 PCR Nasal Parainfluen 3 PCR Nasal Parainfluen 4 PCR Nasal RSV (PCR) Nasal B.pertussis DNA PCR Nasal C.pneumoniae (PCR) Matthew Human Metapneumo PCR Nasal M.pneumoniae (PCR) Nasal SARS-CoV-2 (PCR) Stl C. diff Tox B Gene Ethyl Alcohol < 5.0 Blood Type Blood Type Recheck B POSITIVE Antibody Screen 12/05/20 12/05/20 12/05/20 18:45 19:03 19:25 WBC RBC Hgb Hct MCV MCH MCHC RDW Plt Count MPV Neut # (Auto) Lymph # (Auto) [place] # (Auto) Eos # (Auto) Baso # (Auto) Absolute Nucleated RBC Nucleated RBC % PT INR Sodium Potassium Chloride Carbon Dioxide Anion Gap BUN Creatinine Estimated GFR (MDRD) Glucose Calcium Magnesium Total Bilirubin AST ALT Alkaline Phosphatase Total Protein Albumin Globulin Albumin/Globulin Ratio Lipase Nasal Adenovirus (PCR) NOT DETECTED Nasal B. parapertussis DNA (PCR) NOT DETECTED Nasal Coronavir 229E PCR NOT DETECTED Nasal Coronavir HKU1 PCR NOT DETECTED Nasal Coronavir NL63 PCR NOT DETECTED Nasal Coronavir OC43 PCR NOT DETECTED Nasal Enterovir/Rhinovir PCR NOT DETECTED Nasal Influenza B PCR NOT DETECTED Nasal Influenza A PCR NOT DETECTED Nasal Parainfluen 1 PCR NOT DETECTED Nasal Parainfluen 2 PCR NOT DETECTED Nasal Parainfluen 3 PCR NOT DETECTED Nasal Parainfluen 4 PCR NOT DETECTED Nasal RSV (PCR) NOT DETECTED Nasal B.pertussis DNA PCR NOT DETECTED Nasal C.pneumoniae (PCR) NOT DETECTED Matthew Human Metapneumo PCR NOT DETECTED Nasal M.pneumoniae (PCR) NOT DETECTED Nasal SARS-CoV-2 (PCR) NOT DETECTED Stl C. diff Tox B Gene NEGATIVE Ethyl Alcohol Blood Type B POSITIVE Blood Type Recheck Antibody Screen NEGATIVE 12/05/20 12/05/20 19:25 20:55 WBC RBC Hgb 10.7 L Hct 32.1 L MCV MCH MCHC RDW Plt Count MPV Neut # (Auto) Lymph # (Auto) [place] # (Auto) Eos # (Auto) Baso # (Auto) Absolute Nucleated RBC Nucleated RBC % PT 13.0 H INR 1.2 Sodium Potassium Chloride Carbon Dioxide Anion Gap BUN Creatinine Estimated GFR (MDRD) Glucose Calcium Magnesium Total Bilirubin AST ALT Alkaline Phosphatase Total Protein Albumin Globulin Albumin/Globulin Ratio Lipase Nasal Adenovirus (PCR) Nasal B. parapertussis DNA (PCR) Nasal Coronavir 229E PCR Nasal Coronavir HKU1 PCR Nasal Coronavir NL63 PCR Nasal Coronavir OC43 PCR Nasal Enterovir/Rhinovir PCR Nasal Influenza B PCR Nasal Influenza A PCR Nasal Parainfluen 1 PCR Nasal Parainfluen 2 PCR Nasal Parainfluen 3 PCR Nasal Parainfluen 4 PCR Nasal RSV (PCR) Nasal B.pertussis DNA PCR Nasal C.pneumoniae (PCR) Matthew Human Metapneumo PCR Nasal M.pneumoniae (PCR) Nasal SARS-CoV-2 (PCR) Stl C. diff Tox B Gene Ethyl Alcohol Blood Type Blood Type Recheck Antibody Screen - Rads (name of study) CT A?P Radiology: EMP read contemporaneously PD MEDICAL DECISION MAKING - ED course ED course: I was called into the room at few minutes after 7 PM. The patient had an episode of gross melena. It was sent for guaiac but just visibly is clearly melanotic. She dropped about a half a gram of hemoglobin while in the emergency department. CT showing both colitis and gastritis. Case was discussed by phone with the on-call surgeon, Dr. Dumont who recommends Zosyn and will see in consult and subsequently accepted by Dr. Arellano for admission for upper GI bleed, gastritis, and colitis. Departure - Departure Disposition: 66 [facility] DC/Xfer Clinical Impression: Gastritis, Colitis, Gastrointestinal bleed Condition: Good Record reviewed to determine appropriate education?: Yes
[2020-12-05] MEDS ORDERED: IOVERSOL 320 100 ML VIAL IVP ONE ×2 (18:34→19:58)
[2020-12-05 18:49] LABS: BASOPHILS # (AUTO) 0.1 10^3/uL (0.0-0.1); BASOPHILS % (AUTO) 0.6 %; EOSINOPHILS # (AUTO) 0.1 10^3/uL (0.0-0.7); EOSINOPHILS % (AUTO) 0.6 %; HCT - HEMATOCRIT 35.1 % (37.0-47.0); HGB - HEMOGLOBIN 11.6 g/dL (12.0-16.0); LYMPHOCYTES % (AUTO) 15.8 %; MEAN CORPUSCULAR HEMOGLOBIN 30.9 pg (27.0-31.0); MEAN CORPUSCULAR VOLUME 93.6 fL (81.0-99.0); MEAN PLATELET VOLUME 10.4 fL (7.9-10.8); MONOCYTES # (AUTO) 0.6 10^3/uL (0.0-1.0); MONOCYTES % (AUTO) 4.8 %; NEUTROPHILS # (AUTO) 9.6 10^3/uL (1.5-6.6); NEUTROPHILS % (AUTO) 77.8 %; PLT - PLATELET COUNT 301 10^3/uL (130-450); RED BLOOD COUNT 3.75 10^6/uL (4.20-5.40); RED CELL DISTRIBUTION WIDTH 13.8 % (12.0-15.0); WHITE BLOOD COUNT 12.4 x10^3/uL (4.8-10.8)
[2020-12-05 19:04] LABS: ALBUMIN 4.1 g/dL (3.2-5.5); ALBUMIN/GLOBULIN RATIO 1.5 (1.0-2.2); ALKALINE PHOSPHATASE 43 IU/L (42-121); ALT ALANINE AMINOTRANSFERASE 12 IU/L (10-60); AST ASPARTATE AMINOTRANSFERASE 22 IU/L (10-42); BILIRUBIN,TOTAL 0.7 mg/dL (0.2-1.0); BUN - BLOOD UREA NITROGEN 71 mg/dL (6-20); CALCIUM 8.9 mg/dL (8.5-10.3); CARBON DIOXIDE - CO2 25 mmol/L (21-32); CHLORIDE 96 mmol/L (101-111); CREATININE 1.1 mg/dL (0.4-1.0); ETOH - ETHANOL < 5.0 mg/dL; GFR - MDRD 50 (>89); GLUCOSE 185 mg/dL (70-100); LIPASE 33 U/L (22-51); MAGNESIUM 1.7 mg/dL (1.7-2.8); POTASSIUM 4.7 mmol/L (3.5-5.0); SODIUM 132 mmol/L (135-145); TOTAL PROTEIN 6.8 g/dL (6.7-8.2)
[2020-12-05] MEDS ORDERED: PANTOPRAZOLE 40 MG VIAL IVP STA (19:06)
[2020-12-05 19:42] LABS: INR 1.2 (0.8-1.2)
[2020-12-05 20:43] LABS: B. PARAPERTUSSIS- RESP PCR PAN NOT DETECTED; B. PERTUSSIS- RESP PCR PANEL NOT DETECTED; C. PNEUMONIAE- RESP PCR PANEL NOT DETECTED; CORONAVIRUS 229E-RESP PCR NOT DETECTED; CORONAVIRUS HKU1-RESP PCR NOT DETECTED; CORONAVIRUS NL63-RESP PCR NOT DETECTED; CORONAVIRUS OC43-RESP PCR NOT DETECTED; HUMAN METAPNEUMOVIRUS NOT DETECTED; INFLUENZA A- RESP PCR PANEL NOT DETECTED; INFLUENZA B - RESP PCR PANEL NOT DETECTED; M. PNEUMONIAE- RESP PCR PANEL NOT DETECTED; PARAINFLUENZA VIRUS 1 NOT DETECTED; PARAINFLUENZA VIRUS 2 NOT DETECTED; PARAINFLUENZA VIRUS 3 NOT DETECTED; PARAINFLUENZA VIRUS 4 NOT DETECTED; RHINOVIRUS/ENTEROVIRUS NOT DETECTED; RSV- RESP PCR PANEL NOT DETECTED; SARS-CoV-2 -RESP PCR PANEL NOT DETECTED
[2020-12-05 21:03] LABS: HCT - HEMATOCRIT 32.1 % (37.0-47.0); HGB - HEMOGLOBIN 10.7 g/dL (12.0-16.0)
--- NOTE | 2020-12-05 21:23 | CT Report ---
PROCEDURE: Abdomen/Pelvis W INDICATIONS: abd pressure CONTRAST: IV CONTRAST: Optiray 320 ml: 80 PO CONTRAST: *NO PO CONTRAST TECHNIQUE: After the administration of intravenous contrast, 5 mm thick sections acquired from the diaphragms to the symphysis. 5 mm thick coronal and sagittal reformats were acquired. For radiation dose reducti on, the following was used: automated exposure control, adjustment of mA and/or kV according to gala ent size. COMPARISON: CT abdomen pelvis 10/17/2019. FINDINGS: Image quality: Excellent. ABDOMEN: Lung bases: There is scarring within the visualized lung bases. Heart size is normal. Solid organs: There is a cystic collection along the posterior aspect of the right hepatic lobe redem onstrated, measuring up to approximately 7.1 x 3.9 cm. Gallbladder appears within normal limits witho ut calcified gallstones. Biliary system is non dilated. The spleen is normal in size. Pancreas enhan marylu normally without peripancreatic fat stranding or fluid collections. No adrenal nodules. Kidneys demonstrate no hydronephrosis. There are small hypodensities redemonstrated within the left kidney l ikely representing cysts. Peritoneum and bowel: There is gastric wall thickening in the antrum redemonstrated. Small bowel loop s demonstrate normal wall thickness and caliber. No pericecal inflammatory changes to suggest appendi citis. There is diffuse colonic wall thickening extending from the ascending colon to the sigmoid col on consistent with a colitis. A small amount of free fluid in the pelvis is demonstrated which is lik latoya reactive. No free air. Nodes and vessels: No retroperitoneal or mesenteric adenopathy by size criteria. Aorta and inferior vena cava are normal in size. Miscellaneous: No ventral hernias. PELVIS: Genitourinary: Bladder wall thickness is normal. Miscellaneous: No inguinal hernias or adenopathy. Bones: No suspicious bony lesions. No vertebral body compression fractures. IMPRESSION: 1. Diffuse pancolonic wall thickening consistent with an infectious or inflammatory colitis. 2. Prominent gastric wall thickening in the antrum redemonstrated. The findings again likely represen t a gastritis. Consider follow-up evaluation with endoscopy. Reviewed by: Abdiel Abreu MD on 12/05/2020 9:22 PM PDT Approved by: Abdiel Abreu MD on 12/05/2020 9:22 PM PDT Station ID: [id number]
[2020-12-05] MEDS ORDERED: PIPERACILLIN/TAZOBACTAM 3.375 GM in SODIUM CHLORIDE 0.9% MINIBAG 100 ML IV STA (21:29)
[2020-12-05] MEDS ORDERED: ONDANSETRON 4 MG/2 ML VIAL IVP PRN (21:34)
[2020-12-05] MEDS ORDERED: MORPHINE 2 MG/ML CARPUJECT IVP PRN (21:34)
[2020-12-05] MEDS ORDERED: ONDANSETRON ODT 4 MG TABLET TL PRN (21:34)
--- NOTE | 2020-12-05 21:39 | HISTORY & PHYSICAL EXAMINATION ---
Chief Complaint - Chief Complaint Chief Complaint: Diarrhea History of Present Illness - Admitted From Admitted From:: Home - History Obtained From Records Reviewed: Yes History obtained from: Patient, ER Physician, EMR - History of Present Illness HPI Comment/Other: This is a 60-year-old female with a past medical history significant for lung cancer now in remission, hypertension, bipolar disorder who presents today complaining of diarrhea that began this morning at 4 AM. She states she has had approximately 10 bowel movements today. Initially it was not bloody but later it became bloody with dark stools. She reports very minimal abdominal pain. Denies fevers or chills. She states she was in her usual state of health the past few days. She does admit to a poor appetite overall and she is not sure why. She denies any nausea or vomiting. She states she does take aspirin 81 mg daily but denies any other NSAID use. She does drink on average 1 alcoholic beverage a day and has been doing so for the past few months. She reports hav ing a colonoscopy within the past year which was normal and this was done in [place]. She does not believe she has ever had an endoscopy. She denies any recent travel or sick contacts. She denies any change in her diet. She does admit to a weight loss since her diagnosis of cancer but she states her weight has been stable now over the past few months. In the emergency department, she was noted to be afebrile. She was tachycardic with a heart rate in the 110s. She was hypertensive with systolic ranging from 130s to 150s. Labs reveal hemoglobin 11.6 which dropped to 10.7 within 2 hours. Her BUN was elevated at 71. Sodium was 132. C. difficile was negative. She underwent a CT of the abdomen and pelvis which suggested gastritis and colitis. This was discussed with general surgery who recommended starting Zosyn and admitting the patient to the medicine service. Given her ongoing bleeding and drop in hemoglobin, medicine was consulted for admission. I did discuss goals of care with the patient and she would like to be a full code. History - Past Medical History Cardiovascular: reports: Hypertension Endocrine/Autoimmune: reports: None GI: reports: GERD SAMPLE TESTER GRINDER: reports: None HEENT: reports: None Psych: reports: Depression, Anxiety, Bipolar disorder, Panic attacks Musculoskeletal: reports: Osteoarthritis, Fibromyalgia, Chronic back pain Derm: reports: None MRSA Hx?: Yes - Past Surgical History General: reports: Bowel surgery /SAMPLE TESTER GRINDER: reports: Tubal ligation - Family & Social History Family History Comment/Other: She reports her mother had a history of colon cancer. Her father had a history of bowel perforation. Living arrangement: At home Living Situation: Alone Social History Notes: She lives at home alone. She has siblings who live nearby and [place]. She smoked a pack a day for 40 years but quit a few days ago a nd is now on Chantix. She does admit to marijuana use. She also consumes 1 alcoholic beverage a day and has been doing so for the past few months. Denies methamphetamine/cocaine use. - POLST Patient has POLST: No Meds/Allgy - Home Medications Home Medications: Ambulatory Orders Medication Instructions Recorded Confirmed Citalopram [CeleXA] 40 mg PO DAILY 01/29/13 02/13/17 Gabapentin 600 mg PO TID 01/29/13 02/13/17 Metoprolol Tartrate [Lopressor] 25 mg PO BID 01/29/13 02/13/17 Vitamin [Trinatal Rx 1] 1 each PO DAILY 01/29/13 02/13/17 QUEtiapine [SEROquel] 200 mg ORAL QPM 02/25/14 02/13/17 Meloxicam 15 mg PO DAILY 12/11/16 02/13/17 Ondansetron HCl [Zofran] 4 mg PO Q8HR PRN #30 tablet 12/24/17 Promethazine [Phenergan] 25 mg PO Q6H PRN #30 tab 12/24/17 guaiFENesin/CODEINE [Robitussin AC] 5 ml PO Q6H PRN #120 ml 04/16/18 levoFLOXacin [Levaquin] 500 mg PO DAILY #7 tablet 04/16/18 predniSONE [Deltasone] 20 mg PO [id number] #21 tab 04/16/18 HYDROcod/ACETAM 5/325 [[place] 5/325] 1 each PO BID #10 tablet 10/17/19 Omeprazole 20 mg PO BID #60 capsule. 10/17/19 polyethylene glycoL 3350 [Miralax] 17 gm PO DAILY PRN #1 bottle 10/17/19 - Allergies Allergies/Adverse Reactions: Allergies Allergy/AdvReac Type Severity Reaction Status Date / Time aloe Allergy Itching Verified 12/05/20 18:22 Bleach (Sodium Hypochlorite) Allergy Hives Verified 12/05/20 18:22 Sulfa (Sulfonamide Allergy Itching Verified 12/05/20 18:22 Antibiotics) sulfamethoxazole Allergy Unknown Verified 12/05/20 18:22 [From ] trimethoprim [From ] Allergy Unknown Verified 12/05/20 18:22 Review of Systems - Constitutional Constitutional: reports: Poor appetite. denies: Fatigue, Fever, Chills, Malaise - Ears, Nose & Throat Ears, Nose & Throat: denies: Nasal discharge, Nasal congestion - Cardiovascular Cariovascular: denies: Chest pain, Edema, Lightheadedness, Exertional dyspnea, Decr. exercise tolerance - Respiratory Respiratory: denies: Cough, SOB at rest, SOB with exertion - Gastrointestinal Gastrointestinal: reports: Abdominal pain, Diarrhea, Change in bowel habits, Black stools, Bloody stools, Poor appetite. denies: Nausea, Vomiting, Reflux/h eartburn - Genitourinary Genitourinary: denies: Dysuria, Frequency, Urgency, Hematuria - Integumentary Integumentary: denies: Rash - Neurological Neurological: denies: General weakness, Focal weakness, Dizziness - Hematologic/Lymphatic Hematologic/Lymphatic: denies: Anemia, Bruising, Bleeding tendencies - All Other Systems All Other Systems: reports: Reviewed and negative Prior Level of Functionality: She is independent with her ADL's. Exam - Vital Signs Reviewed Vital Signs: Yes Vital Signs: Vital Signs x48h Temp Pulse Resp BP Pulse Ox 12/05/20 20:27 37.3 C 108 H 16 108/97 H 97 12/05/20 18:53 100 16 159/100 H 100 12/05/20 18:37 35.9 C L 111 H 22 79/60 L 96 12/05/20 18:13 35.9 C L 111 H 20 132/62 H 99 - Physical Exam General Appearance: positive: No acute distress, Alert Eyes Bilateral: positive: Normal inspection, Conjunctivae nml ENT: positive: Dry mucous membranes. negative: No signs of dehydration Neck: positive: Nml inspection Respiratory: positive: No respiratory distress. negative: Wheezes, Rales Cardiovascular: positive: No murmur, Tachycardia. negative: Irregularly irregular, Systolic murmur Abdomen: positive: Non-tender, No distention, Abnml bowel sounds (Hyperactive.). negative: Tenderness Skin: positive: Warm, Dry Extremities: positive: No pedal edema Neurologic/Psychiatric: positive: Motor nml. negative: Disoriented to person, Disoriented to place, Disoriented to time Conclusion/Plan - Problem List (1) GI bleed Conclusion/Plan: Concern is for a GI bleed and suspect this is likely an upper GI bleed given her stool is melenic and CT shows evidence of gastritis. CT did also evidence of colitis but given the elevated BUN, suspect this is likely an upper GI bleed. She will be admitted for IV hydration and started on Protonix 40 mg IV twice daily. She remained n.p.o. and general surgery was consulted for endoscopy. SCDs for DVT prophylaxis. (2) Anemia due to GI blood loss Conclusion/Plan: Her hemoglobin has decreased to 10.7 in 2 hours since her arrival to the emergency department. This is likely secondary to the GI bleed as mentioned above. We will trend her hemoglobin every 8 hours and transfuse as needed. Type and screen has been obtained. (3) Colitis Conclusion/Plan: CT showed evidence of colitis. I am not sure as to the cause of her melena given it also showed gastritis and her BUN is significantly elevated. C. difficile is negative. Emergency room physician spoke with general surgery who recommend we start the patient empirically on Zosyn. Stool cultures have been ordered and are pending. Continue with IV hydration given her diarrhea. (4) Hyponatremia Conclusion/Plan: Her sodium is decreased at 132 suspect is likely hypovolemic hyponatremia. We will hydrate her with lactated Ringer's and recheck a BMP in the morning. (5) Lung cancer Conclusion/Plan: She has a history of lung cancer that is now in remission. Continue outpatient follow-up. Qualifiers: Laterality: right Lung location: middle lobe of lung Qualified Code(s): C34.2 - Malignant neoplasm of middle lobe, bronchus or lung (6) Anxiety Conclusion/Plan: We will continue her home Celexa. (7) Bipolar disorder Conclusion/Plan: We will continue her home Seroquel. - Lab Results Lab results reviewed: Yes Fish Bones: 12/05/20 20:55 12/05/20 18:43 - Diagnostic Imaging Results Diagnostic Imaging Results: positive: Final report reviewed Core Measures - Anticipated LOS I expect patient to be DC'd or transferred within 96 hours.: Yes - Issues Hospital Issues and Management Plan: 60-year-old female presents with diarrhea found to have a GI bleed likely due to gastritis versus colitis based off of imaging. She will be admitted for endoscopy and IV hydration. Will monitor for need for blood transfusion. - DVT/VTE - Prophylaxis VTE/DVT Device ordered at admit?: Yes VTE/DVT Prophylaxis med ordered at admit?: No Not Ordered - Medical Reason: Contraindicated
[2020-12-05] MEDS: LACTATED RINGERS 1,000 ML IV SCH (23:01)
[2020-12-06] MEDS: QUEtiapine 100 MG TABLET PO SCH ×2 (00:26→20:40)
[2020-12-06] MEDS: SODIUM CHLORIDE FLUSH 0.9% 10 ML SYRINGE IVP SCH ×3 (00:27→17:36)
[2020-12-06 05:30] LABS: BASOPHILS % (AUTO) 0.6 %; EOSINOPHILS % (AUTO) 0.6 %; HCT - HEMATOCRIT 24.3 % (37.0-47.0); HGB - HEMOGLOBIN 8.2 g/dL (12.0-16.0); LYMPHOCYTES # (AUTO) 1.6 10^3/uL (1.5-3.5); LYMPHOCYTES % (AUTO) 26.5 %; MEAN CORPUSCULAR HEMOGLOBIN 31.1 pg (27.0-31.0); MEAN CORPUSCULAR HGB CONC 33.7 g/dL (32.0-36.0); MEAN PLATELET VOLUME 10.2 fL (7.9-10.8); MONOCYTES # (AUTO) 0.5 10^3/uL (0.0-1.0); MONOCYTES % (AUTO) 8.4 %; NEUTROPHILS % (AUTO) 63.7 %; PLT - PLATELET COUNT 191 10^3/uL (130-450); RED BLOOD COUNT 2.64 10^6/uL (4.20-5.40); RED CELL DISTRIBUTION WIDTH 13.9 % (12.0-15.0); WHITE BLOOD COUNT 6.2 x10^3/uL (4.8-10.8)
[2020-12-06 05:36] LABS: CALCIUM 8.5 mg/dL (8.5-10.3); CREATININE 1.1 mg/dL (0.4-1.0); MAGNESIUM 1.6 mg/dL (1.7-2.8); POTASSIUM 3.7 mmol/L (3.5-5.0)
[2020-12-06] MEDS: PIPERACILLIN/TAZOBACTAM 3.375 GM in SODIUM CHLORIDE 0.9% MINIBAG 100 ML IV SCH ×4 (05:52→21:37)
[2020-12-06] MEDS: GABAPENTIN 300 MG CAPSULE PO SCH ×3 (05:52→21:37)
[2020-12-06] MEDS: LACTATED RINGERS 1,000 ML IV SCH (08:25)
[2020-12-06] MEDS: SODIUM CHLORIDE FLUSH 0.9% 10 ML SYRINGE IVP PRN ×2 (08:26→12:33)
[2020-12-06] MEDS: PANTOPRAZOLE 40 MG VIAL IVP SCH ×2 (08:26→20:40)
[2020-12-06] MEDS: CITALOPRAM 10 MG TABLET PO SCH (08:29)
[2020-12-06 11:24] LABS: HCT - HEMATOCRIT 22.8 % (37.0-47.0); HGB - HEMOGLOBIN 7.6 g/dL (12.0-16.0)
[2020-12-06] MEDS: ALBUTEROL NEB 2.5 MG/3 ML INH PRN (13:15)
--- NOTE | 2020-12-06 13:15 | PHARMACY PROGRESS NOTE ---
- Best Possible Medication History Admit Date and Time: 12/05/202133 Processed by: Pharmacy Medication History completed: Yes Patient Interview: Completed Secondary Source(s): Physician records, Pharmacy records, Insurance records As the person ultimately responsible for medication therapy, providers are able to order a medication from an existing home medication list in [facility] via the "Reconcile Routine" prior to Confirmation of that medication by litigation support analyst. Such practice is discouraged except when the physician, in their clinical judgment, deems that a medical need exists for a medication without regard to previous use.
--- NOTE | 2020-12-06 15:11 | CONSULTATION NOTE ---
Surgery Consult - Admit Date Hospital Admission Date: 12/05/20 - Consult Date Consult Date: 12/06/20 Requesting Provider: Dr. Ledesma - Chief Complaint Chief Complaint: Bloody diarrhea - Home Meds/Allergies Home Medications: Patient History Medication Instructions Recorded Confirmed Citalopram [CeleXA] 40 mg PO DAILY 01/29/13 12/06/20 Gabapentin 600 mg PO TID 01/29/13 12/06/20 QUEtiapine [SEROquel] 200 mg ORAL QPM 02/25/14 12/06/20 Meloxicam 15 mg PO DAILY 12/11/16 12/06/20 Albuterol Sulfate [Proair 2 puffs INH Q4H PRN 12/06/20 12/06/20 Respiclick] Metoprolol Succinate 100 mg PO DAILY 12/06/20 12/06/20 Varenicline Tartrate 0.5 mg PO TID 12/06/20 12/06/20 Allergies/Adverse Reactions: Allergies Allergy/AdvReac Type Severity Reaction Status Date / Time aloe Allergy Itching Verified 12/05/20 18:22 Bleach (Sodium Hypochlorite) Allergy Hives Verified 12/05/20 18:22 Sulfa (Sulfonamide Allergy Itching Verified 12/05/20 18:22 Antibiotics) sulfamethoxazole Allergy Unknown Verified 12/05/20 18:22 [From ] trimethoprim [From ] Allergy Unknown Verified 12/05/20 18:22 - Vital Signs Vital Signs: Last Vital Signs Temp 36.6 C 12/06/20 12:36 Pulse 110 H 12/06/20 13:16 Resp 18 12/06/20 13:16 BP 144/81 H 12/06/20 12:24 Pulse Ox 93 12/06/20 12:36 Intake & Output: Intake & Output 12/03/20 12/04/20 12/05/20 12/06/20 23:59 23:59 23:59 23:59 Intake Total 1100 1478.333 Balance 1100 1478.333 - Lab Results Result Diagrams: 12/06/20 11:18 12/06/20 05:17 - Consultation Note Consultation Note: 60-year-old woman with history of bowel obstruction, fibromyalgia and chronic pain presents with abrupt onset diarrhea starting at 4 AM associated with chills myalgias. She denies any abdominal pain and says she never really had any. Reports a "normal" colonoscopy within the last year. Hungry. No similar episodes in the past. Review of [facility] records reveals she had a colonoscopy by Dr. Cerrato at [facility] in Jan. No biopsies were taken and only low grade hemorrhoids were noted. No EGD on record Physical exam: HEENT: pale appearing, NCAT, PERRLA, anicteric sclera Lungs: clear bilaterally CV: RRR Abd: soft, hyperactive bowel sounds, minimal tenderness to palpation, no rebound or guarding. Ext: no edema noted. A/P: Colitis and gastritis noted on CT. Plan for EGD tomorrow. Check stool studies.
[2020-12-06 20:15] LABS: HCT - HEMATOCRIT 19.8 % (37.0-47.0); HGB - HEMOGLOBIN 6.7 g/dL (12.0-16.0)
--- NOTE | 2020-12-06 20:36 | PROVIDER PROGRESS NOTE ---
Subjective - Prog Note Date Prog Note Date: 12/06/20 - Subjective Subjective: She feels more fatigued and tired today. She is complaining of a little abdominal pain today and her left lower quadrant. She feels like it is more cramping than anything else. Her diarrhea is improved but she still had 2 bloody bowel movements today. Current Medications - Current Medications Current Medications: Active Medications Albuterol (Albuterol Neb 2.5 Mg/3 Ml) 2.5 mg INH RTQ4H PRN PRN Reason: Wheezing Last Admin: 12/06/20 13:15 Dose: 2.5 mg Documented by: Citalopram Hydrobromide (Citalopram 10 Mg Tablet) 40 mg PO DAILY [facility] Last Admin: 12/06/20 08:29 Dose: 40 mg Documented by: Gabapentin (Gabapentin 300 Mg Capsule) 600 mg PO TID [facility] Last Admin: 12/06/20 12:32 Dose: 600 mg Documented by: Piperacillin Sod/Tazobactam (Sod 3.375 gm/ Sodium Chloride) 100 mls @ 25 mls/hr IV Q8H [facility] Morphine Sulfate (Morphine 2 Mg/Ml Carpuject) 2 mg IVP Q2HR PRN PRN Reason: Pain 8 to 10 Ondansetron HCl (Ondansetron Odt 4 Mg Tablet) 4 mg TL Q6HR PRN PRN Reason: Nausea / Vomiting Ondansetron HCl (Ondansetron 4 Mg/2 Ml Vial) 4 mg IVP Q6HR PRN PRN Reason: Nausea / Vomiting Oxycodone HCl (Oxycodone 5 Mg Tablet) 5 mg PO Q4HR PRN PRN Reason: Pain 5 to 7 Pantoprazole Sodium (Pantoprazole 40 Mg Vial) 40 mg IVP BID [facility] Last Admin: 12/06/20 20:40 Dose: 40 mg Documented by: Quetiapine Fumarate (Quetiapine 100 Mg Tablet) 200 mg PO QPM [facility] Last Admin: 12/06/20 20:40 Dose: 200 mg Documented by: Sodium Chloride (Sodium Chloride Flush 0.9% 10 Ml Syringe) 10 ml IVP PRN PRN PRN Reason: NEEDED PER PROVIDER ORDERS Last Admin: 12/06/20 12:33 Dose: 10 ml Documented by: Sodium Chloride (Sodium Chloride Flush 0.9% 10 Ml Syringe) 10 ml IVP 0100,0900,1700 MORENITA Last Admin: 12/06/20 17:36 Dose: 10 ml Documented by: Citalopram [CeleXA] 40 mg PO DAILY 01/29/13 Gabapentin 600 mg PO TID 01/29/13 QUEtiapine [SEROquel] 200 mg ORAL QPM 02/25/14 Meloxicam 15 mg PO DAILY 12/11/16 Albuterol Sulfate [Proair Respiclick] 2 puffs INH Q4H PRN 12/06/20 Metoprolol Succinate 100 mg PO DAILY 12/06/20 Varenicline Tartrate 0.5 mg PO TID 12/06/20 Objective - Vital Signs/Intake & Output Reviewed Vital Signs: Yes Vital Signs: Vital Signs x48h Temp Pulse Pulse Resp BP Pulse Ox 12/06/20 16:24 36.9 C 113 H 20 132/80 H 95 12/06/20 13:16 110 H 18 Intake & Output: Intake & Output 12/03/20 12/04/20 12/05/20 12/06/20 23:59 23:59 23:59 23:59 Intake Total 1100 2480.000 Balance 1100 2480.000 - Objective General Appearance: positive: No acute distress, Alert ENT: positive: ENT inspection nml Neck: positive: Nml inspection Respiratory: positive: No respiratory distress. negative: Wheezes, Rales Cardiovascular: positive: Tachycardia. negative: Irregularly irregular, Systolic murmur Abdomen: positive: No distention, Tenderness (Left lower quadrant). negative: Guarding, Rebound Skin: positive: Warm, Dry, Pallor Extremities: positive: No pedal edema Neurologic/Psychiatric: negative: Disoriented to person, Disoriented to place - Lab Results Fish Bones: 12/06/20 20:07 12/06/20 05:17 Other Labs: Lab Results x24hrs 12/06/20 12/06/20 12/06/20 Range/Units 20:07 11:18 05:17 WBC (4.8-10.8) x10^3/uL RBC (4.20-5.40) 10^6/uL Hgb 6.7 L* 7.6 L (12.0-16.0) g/dL Hct 19.8 L* 22.8 L (37.0-47.0) % MCV (81.0-99.0) fL MCH (27.0-31.0) pg MCHC (32.0-36.0) g/dL RDW (12.0-15.0) % Plt Count (130-450) 10^3/uL MPV (7.9-10.8) fL Neut # (Auto) (1.5-6.6) 10^3/uL Lymph # (Auto) (1.5-3.5) 10^3/uL Davie # (Auto) (0.0-1.0) 10^3/uL Eos # (Auto) (0.0-0.7) 10^3/uL Baso # (Auto) (0.0-0.1) 10^3/uL Absolute Nucleated RBC x10^3/uL Nucleated RBC % /100WBC Sodium 133 L (135-145) mmol/L Potassium 3.7 (3.5-5.0) mmol/L Chloride 102 (101-111) mmol/L Carbon Dioxide 25 (21-32) mmol/L Anion Gap 6.0 (6-13) BUN 61 H (6-20) mg/dL Creatinine 1.1 H (0.4-1.0) mg/dL Estimated GFR (MDRD) 50 L (>89) Glucose 95 (70-100) mg/dL Calcium 8.5 (8.5-10.3) mg/dL Magnesium 1.6 L (1.7-2.8) mg/dL Nasal Adenovirus (PCR) Nasal B. parapertussis DNA (PCR) Nasal Coronavir 229E PCR Nasal Coronavir HKU1 PCR Nasal Coronavir NL63 PCR Nasal Coronavir OC43 PCR Nasal Enterovir/Rhinovir PCR Nasal Influenza B PCR Nasal Influenza A PCR Nasal Parainfluen 1 PCR Nasal Parainfluen 2 PCR Nasal Parainfluen 3 PCR Nasal Parainfluen 4 PCR Nasal RSV (PCR) Nasal B.pertussis DNA PCR Nasal C.pneumoniae (PCR) Matthew Human Metapneumo PCR Nasal M.pneumoniae (PCR) Nasal SARS-CoV-2 (PCR) Stl C. diff Tox B Gene (NEGATIVE) 12/06/20 12/05/20 12/05/20 Range/Units 05:17 20:55 19:03 WBC 6.2 (4.8-10.8) x10^3/uL RBC 2.64 L (4.20-5.40) 10^6/uL Hgb 8.2 L 10.7 L (12.0-16.0) g/dL Hct 24.3 L 32.1 L (37.0-47.0) % MCV 92.0 (81.0-99.0) fL MCH 31.1 H (27.0-31.0) pg MCHC 33.7 (32.0-36.0) g/dL RDW 13.9 (12.0-15.0) % Plt Count 191 (130-450) 10^3/uL MPV 10.2 (7.9-10.8) fL Neut # (Auto) 4.0 (1.5-6.6) 10^3/uL Lymph # (Auto) 1.6 (1.5-3.5) 10^3/uL Davie # (Auto) 0.5 (0.0-1.0) 10^3/uL Eos # (Auto) 0.0 (0.0-0.7) 10^3/uL Baso # (Auto) 0.0 (0.0-0.1) 10^3/uL Absolute Nucleated RBC 0.00 x10^3/uL Nucleated RBC % 0.0 /100WBC Sodium (135-145) mmol/L Potassium (3.5-5.0) mmol/L Chloride (101-111) mmol/L Carbon Dioxide (21-32) mmol/L Anion Gap (6-13) BUN (6-20) mg/dL Creatinine (0.4-1.0) mg/dL Estimated GFR (MDRD) (>89) Glucose (70-100) mg/dL Calcium (8.5-10.3) mg/dL Magnesium (1.7-2.8) mg/dL Nasal Adenovirus (PCR) Nasal B. parapertussis DNA (PCR) Nasal Coronavir 229E PCR Nasal Coronavir HKU1 PCR Nasal Coronavir NL63 PCR Nasal Coronavir OC43 PCR Nasal Enterovir/Rhinovir PCR Nasal Influenza B PCR Nasal Influenza A PCR Nasal Parainfluen 1 PCR Nasal Parainfluen 2 PCR Nasal Parainfluen 3 PCR Nasal Parainfluen 4 PCR Nasal RSV (PCR) Nasal B.pertussis DNA PCR Nasal C.pneumoniae (PCR) Matthew Human Metapneumo PCR Nasal M.pneumoniae (PCR) Nasal SARS-CoV-2 (PCR) Stl C. diff Tox B Gene NEGATIVE (NEGATIVE) 12/05/20 Range/Units 18:45 WBC (4.8-10.8) x10^3/uL RBC (4.20-5.40) 10^6/uL Hgb (12.0-16.0) g/dL Hct (37.0-47.0) % MCV (81.0-99.0) fL MCH (27.0-31.0) pg MCHC (32.0-36.0) g/dL RDW (12.0-15.0) % Plt Count (130-450) 10^3/uL MPV (7.9-10.8) fL Neut # (Auto) (1.5-6.6) 10^3/uL Lymph # (Auto) (1.5-3.5) 10^3/uL [place]ie # (Auto) (0.0-1.0) 10^3/uL Eos # (Auto) (0.0-0.7) 10^3/uL Baso # (Auto) (0.0-0.1) 10^3/uL Absolute Nucleated RBC x10^3/uL Nucleated RBC % /100WBC Sodium (135-145) mmol/L Potassium (3.5-5.0) mmol/L Chloride (101-111) mmol/L Carbon Dioxide (21-32) mmol/L Anion Gap (6-13) BUN (6-20) mg/dL Creatinine (0.4-1.0) mg/dL Estimated GFR (MDRD) (>89) Glucose (70-100) mg/dL Calcium (8.5-10.3) mg/dL Magnesium (1.7-2.8) mg/dL Nasal Adenovirus (PCR) NOT DETECTED Nasal B. parapertussis DNA (PCR) NOT DETECTED Nasal Coronavir 229E PCR NOT DETECTED Nasal Coronavir HKU1 PCR NOT DETECTED Nasal Coronavir NL63 PCR NOT DETECTED Nasal Coronavir OC43 PCR NOT DETECTED Nasal Enterovir/Rhinovir PCR NOT DETECTED Nasal Influenza B PCR NOT DETECTED Nasal Influenza A PCR NOT DETECTED Nasal Parainfluen 1 PCR NOT DETECTED Nasal Parainfluen 2 PCR NOT DETECTED Nasal Parainfluen 3 PCR NOT DETECTED Nasal Parainfluen 4 PCR NOT DETECTED Nasal RSV (PCR) NOT DETECTED Nasal B.pertussis DNA PCR NOT DETECTED Nasal C.pneumoniae (PCR) NOT DETECTED Matthew Human Metapneumo PCR NOT DETECTED Nasal M.pneumoniae (PCR) NOT DETECTED Nasal SARS-CoV-2 (PCR) NOT DETECTED Stl C. diff Tox B Gene (NEGATIVE) ABX Reporting Has patient been on IV antibiotics over the past 48 hours?: No Assessment/Plan - Problem List (1) GI bleed Impression: This is ongoing and reflected by the drop in hemoglobin. CT showed gastritis and colitis. Suspect is likely an upper GI bleed given her significantly elevated BUN on admission and the melena. Plan is for EGD tomorrow. She remai ns on Protonix 40 mg IV twice daily. N.p.o. at midnight for endoscopy. (2) Anemia due to GI blood loss Impression: Hemoglobin has continued to drop and is now less than 7. We will transfuse her 2 units of packed red blood cell given her ongoing bleeding and drop in hemoglobin. She is also tachycardic. We will recheck hemoglobin in the morning. (3) Colitis Impression: CT showed evidence of colitis. She is little more abdominal pain and cramping today but her diarrhea is improved. Continues to have dark tarry stools. She remains on Zosyn IV as per general surgery. C. difficile is negative but the remaining stool cultures are pending. Appreciate general surgery input. (4) Hyponatremia Impression: Improved with IV hydration but still remains decreased at 133. Likely hypovolemic hyponatremia. Continue IV hydration. (5) Lung cancer Impression: She is a history of lung cancer that is now in remission. Continue outpatient follow-up. Qualifiers: Laterality: right Lung location: middle lobe of lung Qualified Code(s): C34.2 - Malignant neoplasm of middle lobe, bronchus or lung (6) Anxiety Impression: We will continue her home Celexa. (7) Bipolar disorder Impression: We will continue her home Seroquel.
[2020-12-06] MEDS ORDERED: QUEtiapine 100 MG TABLET PO SCH (21:00)
[2020-12-06 21:16] LABS: H. PYLORIS ANTIGEN STL NEGATIVE (Negative)
[2020-12-07] MEDS: SODIUM CHLORIDE FLUSH 0.9% 10 ML SYRINGE IVP SCH ×3 (00:08→16:57)
[2020-12-07 06:07] LABS: BASOPHILS # (AUTO) 0.1 10^3/uL (0.0-0.1); BASOPHILS % (AUTO) 1.2 %; EOSINOPHILS # (AUTO) 0.3 10^3/uL (0.0-0.7); EOSINOPHILS % (AUTO) 5.2 %; HCT - HEMATOCRIT 30.5 % (37.0-47.0); HGB - HEMOGLOBIN 10.3 g/dL (12.0-16.0); LYMPHOCYTES # (AUTO) 1.5 10^3/uL (1.5-3.5); LYMPHOCYTES % (AUTO) 24.8 %; MEAN CORPUSCULAR HGB CONC 33.8 g/dL (32.0-36.0); MEAN CORPUSCULAR VOLUME 88.9 fL (81.0-99.0); MEAN PLATELET VOLUME 10.1 fL (7.9-10.8); MONOCYTES # (AUTO) 0.5 10^3/uL (0.0-1.0); MONOCYTES % (AUTO) 8.3 %; NEUTROPHILS # (AUTO) 3.6 10^3/uL (1.5-6.6); NEUTROPHILS % (AUTO) 60.2 %; PLT - PLATELET COUNT 154 10^3/uL (130-450); RED BLOOD COUNT 3.43 10^6/uL (4.20-5.40); RED CELL DISTRIBUTION WIDTH 15.8 % (12.0-15.0); WHITE BLOOD COUNT 5.9 x10^3/uL (4.8-10.8)
[2020-12-07 06:20] LABS: CALCIUM 8.6 mg/dL (8.5-10.3); MAGNESIUM 1.6 mg/dL (1.7-2.8); POTASSIUM 3.8 mmol/L (3.5-5.0)
[2020-12-07] MEDS: PIPERACILLIN/TAZOBACTAM 3.375 GM in SODIUM CHLORIDE 0.9% MINIBAG 100 ML IV SCH ×3 (07:30→21:42)
[2020-12-07] MEDS: CITALOPRAM 10 MG TABLET PO SCH (07:30)
[2020-12-07] MEDS: GABAPENTIN 300 MG CAPSULE PO SCH ×3 (07:30→21:42)
[2020-12-07] MEDS: PANTOPRAZOLE 40 MG VIAL IVP SCH ×2 (07:31→20:41)
[2020-12-07] MEDS: SODIUM CHLORIDE FLUSH 0.9% 10 ML SYRINGE IVP PRN ×2 (07:31→13:25)
[2020-12-07] MEDS: ALBUTEROL NEB 2.5 MG/3 ML INH PRN (07:57)
--- NOTE | 2020-12-07 09:37 | ANESTHESIA ---
Pre-Anesthesia VS, & Labs - Diagnosis GI Bleed - Procedure EGD Vital Signs: Temp Pulse Resp BP Pulse Ox 36.8 C 104 H 20 157/91 H 93 12/07/20 07:17 12/07/20 07:58 12/07/20 07:58 12/07/20 07:17 12/07/20 07:17 Height: 5 ft 5 in Weight (kg): 42.5 kg Body Mass Index: 15.5 BMI Classification: Underweight - NPO >8 hours - Is Patient ?: No - Lab Results Current Lab Results: Laboratory Tests 12/07/20 06:00: Sodium 138, Potassium 3.8, Chloride 104, Carbon Dioxide 26, Anion Gap 8.0, BUN 34 H, Creatinine 1.0, Estimated GFR (MDRD) 56 L, Glucose 84, Calcium 8.6, Magnesium 1.6 L 12/07/20 06:00: WBC 5.9, RBC 3.43 L, Hgb 10.3 L, Hct 30.5 L, MCV 88.9, MCH 30.0, MCHC 33.8, RDW 15.8 H, Plt Count 154, MPV 10.1, Neut # (Auto) 3.6, Lymph # (Auto) 1.5, [place] # (Auto) 0.5, Eos # (Auto) 0.3, Baso # (Auto) 0.1, Absolute Nucleated RBC 0.00, Nucleated RBC % 0.0 12/06/20 20:07: Hgb 6.7 L*, Hct 19.8 L* 12/06/20 11:18: Hgb 7.6 L, Hct 22.8 L 12/06/20 05:17: Sodium 133 L, Potassium 3.7, Chloride 102, Carbon Dioxide 25, Anion Gap 6.0, BUN 61 H, Creatinine 1.1 H, Estimated GFR (MDRD) 50 L, Glucose 95, Calcium 8.5, Magnesium 1.6 L 12/06/20 05:17: WBC 6.2, RBC 2.64 L, Hgb 8.2 L, Hct 24.3 L, MCV 92.0, MCH 31.1 H , MCHC 33.7, RDW 13.9, Plt Count 191, MPV 10.2, Neut # (Auto) 4.0, Lymph # (Auto) 1.6, [place] # (Auto) 0.5, Eos # (Auto) 0.0, Baso # (Auto) 0.0, Absolute Nucleated RBC 0.00, Nucleated RBC % 0.0 12/05/20 20:55: Hgb 10.7 L, Hct 32.1 L 12/05/20 19:25: PT 13.0 H, INR 1.2 12/05/20 19:25: Blood Type B POSITIVE, Antibody Screen NEGATIVE, Crossmatch IS Only See Detail 12/05/20 18:43: Blood Type Recheck B POSITIVE 12/05/20 18:43: Sodium 132 L, Potassium 4.7, Chloride 96 L, Carbon Dioxide 25, A nion Gap 11.0, BUN 71 H, Creatinine 1.1 H, Estimated GFR (MDRD) 50 L, Glucose 185 H, Calcium 8.9, Magnesium 1.7, Total Bilirubin 0.7, AST 22, ALT 12, Alkaline Phosphatase 43, Total Protein 6.8, Albumin 4.1, Globulin 2.7, Albumin/Globulin Ratio 1.5, Lipase 33, Ethyl Alcohol < 5.0 12/05/20 18:43: WBC 12.4 H, RBC 3.75 L, Hgb 11.6 L, Hct 35.1 L, MCV 93.6, MCH 30.9, MCHC 33.0, RDW 13.8, Plt Count 301, MPV 10.4, Neut # (Auto) 9.6 H, Lymph # (Auto) 2.0, [place] # (Auto) 0.6, Eos # (Auto) 0.1, Baso # (Auto) 0.1, Absolute Nucleated RBC 0.00, Nucleated RBC % 0.0 Fish Bones: 12/07/20 06:00 12/07/20 06:00 Home Medications and Allergies Home Medications: Ambulatory Orders Albuterol Sulfate [Proair Respiclick] 2 puffs INH Q4H PRN 12/06/20 Metoprolol Succinate 100 mg PO DAILY 12/06/20 Varenicline Tartrate 0.5 mg PO TID 12/06/20 Active Medications Albuterol (Albuterol Neb 2.5 Mg/3 Ml) 2.5 mg INH RTQ4H PRN PRN Reason: Wheezing Last Admin: 12/07/20 07:57 Dose: 2.5 mg Documented by: Citalopram Hydrobromide (Citalopram 10 Mg Tablet) 40 mg PO DAILY [facility] Last Admin: 12/07/20 07:30 Dose: 40 mg Documented by: Gabapentin (Gabapentin 300 Mg Capsule) 600 mg PO TID [facility] Last Admin: 12/07/20 07:30 Dose: 600 mg Documented by: Piperacillin Sod/Tazobactam (Sod 3.375 gm/ Sodium Chloride) 100 mls @ 25 mls/hr IV Q8H [facility] Last Admin: 12/07/20 07:30 Dose: 25 mls/hr Documented by: Morphine Sulfate (Morphine 2 Mg/Ml Carpuject) 2 mg IVP Q2HR PRN PRN Reason: Pain 8 to 10 Ondansetron HCl (Ondansetron Odt 4 Mg Tablet) 4 mg TL Q6HR PRN PRN Reason: Nausea / Vomiting Ondansetron HCl (Ondansetron 4 Mg/2 Ml Vial) 4 mg IVP Q6HR PRN PRN Reason: Nausea / Vomiting Oxycodone HCl (Oxycodone 5 Mg Tablet) 5 mg PO Q4HR PRN PRN Reason: Pain 5 to 7 Pantoprazole Sodium (Pantoprazole 40 Mg Vial) 40 mg IVP BID [facility] Last Admin: 12/07/20 07:31 Dose: 40 mg Documented by: Quetiapine Fumarate (Quetiapine 100 Mg Tablet) 200 mg PO QPM [facility] Last Admin: 12/06/20 20:40 Dose: 200 mg Documented by: Sodium Chloride (Sodium Chloride Flush 0.9% 10 Ml Syringe) 10 ml IVP PRN PRN PRN Reason: NEEDED PER PROVIDER ORDERS Last Admin: 12/07/20 07:31 Dose: 10 ml Documented by: Sodium Chloride (Sodium Chloride Flush 0.9% 10 Ml Syringe) 10 ml IVP 0100,0900,1700 [facility] Last Admin: 12/07/20 07:31 Dose: 10 ml Documented by: Citalopram [CeleXA] 40 mg PO DAILY 01/29/13 Gabapentin 600 mg PO TID 01/29/13 QUEtiapine [SEROquel] 200 mg ORAL QPM 02/25/14 Meloxicam 15 mg PO DAILY 12/11/16 Albuterol Sulfate [Proair Respiclick] 2 puffs INH Q4H PRN 12/06/20 Metoprolol Succinate 100 mg PO DAILY 12/06/20 Varenicline Tartrate 0.5 mg PO TID 12/06/20 Allergies/Adverse Reactions: Allergies Allergy/AdvReac Type Severity Reaction Status Date / Time aloe Allergy Itching Verified 12/05/20 18:22 Bleach (Sodium Hypochlorite) Allergy Hives Verified 12/05/20 18:22 Sulfa (Sulfonamide Allergy Itching Verified 12/05/20 18:22 Antibiotics) sulfamethoxazole Allergy Unknown Verified 12/05/20 18:22 [From ] trimethoprim [From ] Allergy Unknown Verified 12/05/20 18:22 Anes History & Medical History - Anesthetic History Anesthesia Complications: reports: No previous complications - Medical History Cardiovascular: reports: Hypertension Pulmonary: reports: Other (Hx Lung Cancer) Gastrointestinal: reports: GERD Urinary: reports: None Neuro: reports: None Musculoskeletal: reports: Osteoarthritis, Fibromyalgia, Chronic back pain Endocrine/Autoimmune: reports: None Blood Disorders: reports: None Skin: reports: None Smoking Status: Former smoker Psychosocial: reports: Alcohol (daily use) History of Cancer?: Yes (lung cancer) - Surgical History General: reports: Bowel surgery Gynecologic: reports: Tubal ligation Exam General: Alert, Oriented x3, Cooperative Dental: WNL Mouth Openin Fingerbreadth Neck Mobility: Normal Mallampati classification: II Thyromental Distance: 4-6 cm Mental/Cognitive Status: Alert/Oriented X3, Normal for patient Plan Anesthesia Type: Total IV Consent for Procedure(s) Verified and Reviewed: Yes Code Status: Attempt Resuscitation ASA classification: 3-Severe systemic disease Is this case an emergency?: No
[2020-12-07] MEDS: METOPROLOL SUCCINATE 50 MG TABLET PO SCH (10:08)
[2020-12-07] MEDS: oxyCODONE 5 MG TABLET PO PRN (10:09)
[2020-12-07] MEDS ORDERED: PROPOFOL 200 MG/20 ML VIAL IVP ONE (10:24)
[2020-12-07] MEDS ORDERED: fentaNYL 100 MCG/2 ML VIAL ONE (10:24)
--- NOTE | 2020-12-07 11:28 | PROVIDER PROGRESS NOTE ---
Subjective - Prog Note Date Prog Note Date: 12/07/20 Prog Note Time: 11:24 - Subjective Pt reports feeling: Improved Subjective: [place] is still experiencing abdominal pain in her left lower quadrant. She is still have bloody bowel movements but diarrhea is improving. She will have an EGD today to evaluate GI bleed. Yesterday, her Hgb fell from 8.2 to 7.6 to 6.7. She was given 2 units of packed RBCs and her Hgb today is up to 10.3. She remains tachycardic ranging from 103-105. Her BP early this morning was 157/91 and 154/90; more recently this has come down to 110/79. [place] has been persistently hyponatremic and was given IV fluids to correct her hypovolemia. Sodium is now normalized at 138. [place] requested to have a lesion on her right ear evaluated. The lesion is erythematous with a central ulceration and is rough to the touch. She thinks it has been there for several months and reports that it will bleed when she picks at it, which she often does. Current Medications - Current Medications Current Medications: Active Medications Albuterol (Albuterol Neb 2.5 Mg/3 Ml) 2.5 mg INH RTQ4H PRN PRN Reason: Wheezing Last Admin: 12/07/20 07:57 Dose: 2.5 mg Documented by: Citalopram Hydrobromide (Citalopram 10 Mg Tablet) 40 mg PO DAILY [facility] Last Admin: 12/07/20 07:30 Dose: 40 mg Documented by: Gabapentin (Gabapentin 300 Mg Capsule) 600 mg PO TID [facility] Last Admin: 12/07/20 07:30 Dose: 600 mg Documented by: Piperacillin Sod/Tazobactam (Sod 3.375 gm/ Sodium Chloride) 100 mls @ 25 mls/hr IV Q8H [facility] Last Infusion: 12/07/20 11:11 Dose: 25 mls/hr Documented by: Metoprolol Succinate (Metoprolol Succinate 50 Mg Tablet) 100 mg PO DAILY [facility] Last Admin: 12/07/20 10:08 Dose: 100 mg Documented by: Morphine Sulfate (Morphine 2 Mg/Ml Carpuject) 2 mg IVP Q2HR PRN PRN Reason: Pain 8 to 10 Ondansetron HCl (Ondansetron Odt 4 Mg Tablet) 4 mg TL Q6HR PRN PRN Reason: Nausea / Vomiting Ondansetron HCl (Ondansetron 4 Mg/2 Ml Vial) 4 mg IVP Q6HR PRN PRN Reason: Nausea / Vomiting Oxycodone HCl (Oxycodone 5 Mg Tablet) 5 mg PO Q4HR PRN PRN Reason: Pain 5 to 7 Last Admin: 12/07/20 10:09 Dose: 5 mg Documented by: Pantoprazole Sodium (Pantoprazole 40 Mg Vial) 40 mg IVP BID [facility] Last Admin: 12/07/20 07:31 Dose: 40 mg Documented by: Quetiapine Fumarate (Quetiapine 100 Mg Tablet) 200 mg PO QPM [facility] Last Admin: 12/06/20 20:40 Dose: 200 mg Documented by: Sodium Chloride (Sodium Chloride Flush 0.9% 10 Ml Syringe) 10 ml IVP PRN PRN PRN Reason: NEEDED PER PROVIDER ORDERS Last Admin: 12/07/20 07:31 Dose: 10 ml Documented by: Sodium Chloride (Sodium Chloride Flush 0.9% 10 Ml Syringe) 10 ml IVP 0100,0900,1700 [facility] Last Admin: 12/07/20 07:31 Dose: 10 ml Documented by: Citalopram [CeleXA] 40 mg PO DAILY 01/29/13 Gabapentin 600 mg PO TID 01/29/13 QUEtiapine [SEROquel] 200 mg ORAL QPM 02/25/14 Meloxicam 15 mg PO DAILY 12/11/16 Albuterol Sulfate [Proair Respiclick] 2 puffs INH Q4H PRN 12/06/20 Metoprolol Succinate 100 mg PO DAILY 12/06/20 Varenicline Tartrate 0.5 mg PO TID 12/06/20 Objective - Vital Signs/Intake & Output Reviewed Vital Signs: Yes Vital Signs: Vital Signs x48h Temp Pulse Pulse Pulse Resp BP Pulse Ox 12/07/20 11:10 37.0 C 83 18 110/79 98 12/07/20 10:08 106 H 154/90 H 12/07/20 07:58 104 H 20 12/07/20 07:17 36.8 C 103 H 12 157/91 H 93 12/07/20 05:15 36.5 C 95 16 126/63 95 Intake & Output: Intake & Output 10/1512/05/20 12/06/20 12/07/20 23:59 23:59 23:59 23:59 Intake Total 1100 3155.000 527.083 Output Total 100 Balance 1100 3155.000 427.083 - Objective General Appearance: positive: No acute distress, Alert Eyes Bilateral: positive: PERRL, EOMI ENT: positive: No signs of dehydration. negative: ENT inspection nml (Erythematous lesion on right ear with a central ulceration that is rough to the touch. Has been present for several months and is friable) Neck: positive: No JVD. negative: Stiff neck Respiratory: positive: No respiratory distress, Breath sounds nml. negative: Wheezes, Rales, Rhonchi Cardiovascular: positive: Tachycardia. negative: No murmur, Irregularly irr egular, Gallop/S4, Friction rub Abdomen: positive: Non-tender, Nml bowel sounds, No distention. negative: Guarding, Rebound Skin: positive: Warm, Dry, Pallor Extremities: positive: No pedal edema Neurologic/Psychiatric: positive: Oriented x3 - Lab Results Fish Bones: 12/07/20 06:00 12/07/20 06:00 Other Labs: Lab Results x24hrs 12/07/20 12/07/20 12/06/20 Range/Units 06:00 06:00 21:03 WBC 5.9 (4.8-10.8) x10^3/uL RBC 3.43 L (4.20-5.40) 10^6/uL Hgb 10.3 L (12.0-16.0) g/dL Hct 30.5 L (37.0-47.0) % MCV 88.9 (81.0-99.0) fL MCH 30.0 (27.0-31.0) pg MCHC 33.8 (32.0-36.0) g/dL RDW 15.8 H (12.0-15.0) % Plt Count 154 (130-450) 10^3/uL MPV 10.1 (7.9-10.8) fL Neut # (Auto) 3.6 (1.5-6.6) 10^3/uL Lymph # (Auto) 1.5 (1.5-3.5) 10^3/uL [place] # (Auto) 0.5 (0.0-1.0) 10^3/uL Eos # (Auto) 0.3 (0.0-0.7) 10^3/uL Baso # (Auto) 0.1 (0.0-0.1) 10^3/uL Absolute Nucleated RBC 0.00 x10^3/uL Nucleated RBC % 0.0 /100WBC Sodium 138 (135-145) mmol/L Potassium 3.8 (3.5-5.0) mmol/L Chloride 104 (101-111) mmol/L Carbon Dioxide 26 (21-32) mmol/L Anion Gap 8.0 (6-13) BUN 34 H (6-20) mg/dL Creatinine 1.0 (0.4-1.0) mg/dL Estimated GFR (MDRD) 56 L (>89) Glucose 84 (70-100) mg/dL Calcium 8.6 (8.5-10.3) mg/dL Magnesium 1.6 L (1.7-2.8) mg/dL Stool H. pylori Ag NEGATIVE (Negative) Blood Type Antibody Screen Crossmatch IS Only 12/06/20 12/06/20 12/05/20 Range/Units 20:07 11:18 19:25 WBC (4.8-10.8) x10^3/uL RBC (4.20-5.40) 10^6/uL Hgb 6.7 L* 7.6 L (12.0-16.0) g/dL Hct 19.8 L* 22.8 L (37.0-47.0) % MCV (81.0-99.0) fL MCH (27.0-31.0) pg MCHC (32.0-36.0) g/dL RDW (12.0-15.0) % Plt Count (130-450) 10^3/uL MPV (7.9-10.8) fL Neut # (Auto) (1.5-6.6) 10^3/uL Lymph # (Auto) (1.5-3.5) 10^3/uL [place] # (Auto) (0.0-1.0) 10^3/uL Eos # (Auto) (0.0-0.7) 10^3/uL Baso # (Auto) (0.0-0.1) 10^3/uL Absolute Nucleated RBC x10^3/uL Nucleated RBC % /100WBC Sodium (135-145) mmol/L Potassium (3.5-5.0) mmol/L Chloride (101-111) mmol/L Carbon Dioxide (21-32) mmol/L Anion Gap (6-13) BUN (6-20) mg/dL Creatinine (0.4-1.0) mg/dL Estimated GFR (MDRD) (>89) Glucose (70-100) mg/dL Calcium (8.5-10.3) mg/dL Magnesium (1.7-2.8) mg/dL Stool H. pylori Ag (Negative) Blood Type B POSITIVE Antibody Screen NEGATIVE Crossmatch IS Only See Detail Assessment/Plan - Problem List (1) GI bleed Impression: Impression: This is ongoing and reflected by the drop in hemoglobin. CT showed gastritis and colitis. Suspect is likely an upper GI bleed given her significantly elevated BUN on admission and the melena. Plan is for EGD today She remains on Protonix 40 mg IV twice daily. (2) Anemia due to GI blood loss Impression: Yesterday her Hgb dropped from 8.2 to 7.6 to 6.7. She was given 2 units of packed RBCs and today her Hgb is 10.3. She remains tachycardic with a pulse of 103-106 and will resume her home beta-lefty. (3) Colitis Impression: CT showed evidence of colitis. She is little more abdominal pain and cramping today but her diarrhea is improved. Continues to have dark tarry stools. She remains on Zosyn IV as per general surgery. C. difficile is negative but the remaining stool cultures are pending. Appreciate general surgery input. (4) Hyponatremia Impression: Improved with IV hydration from 133 yesterday to 138 today, indicating this was likely hypovolemic hyponatremia. IV fluids will be stopped as long as she continues to tolerate PO. (5) Lung cancer Impression: She is a history of lung cancer that is now in remission. Continue outpatient follow-up. Qualifiers: Laterality: right Lung location: middle lobe of lung Qualified Code(s): C34.2 - Malignant neoplasm of middle lobe, bronchus or lung (6) Anxiety Impression: We will continue her home Celexa. (7) Bipolar disorder Impression: We will continue her home Seroquel. (8) Neoplasm of uncertain behavior, right ear Impression: Erythematous lesion with a central ulceration that is rough to the touch. Has been present for several months and is friable. Advised [place] to schedule an appointment with a manager cleaning to biopsy this lesion which could potentially be a skin cancer.
[2020-12-07 12:14] LABS: HCT - HEMATOCRIT 29.3 % (37.0-47.0); HGB - HEMOGLOBIN 9.9 g/dL (12.0-16.0); MEAN CORPUSCULAR HEMOGLOBIN 30.4 pg (27.0-31.0); MEAN CORPUSCULAR HGB CONC 33.8 g/dL (32.0-36.0); MEAN CORPUSCULAR VOLUME 89.9 fL (81.0-99.0); MEAN PLATELET VOLUME 10.1 fL (7.9-10.8); RED BLOOD COUNT 3.26 10^6/uL (4.20-5.40); RED CELL DISTRIBUTION WIDTH 15.9 % (12.0-15.0); WHITE BLOOD COUNT 5.4 x10^3/uL (4.8-10.8)
[2020-12-07] MEDS: MAGNESIUM OXIDE 400 MG TABLET PO SCH (14:42)
--- NOTE | 2020-12-07 17:06 | ANESTHESIA POST OP EVALUATION ---
Anesthesia Post Eval - Post Anesthesia Eval Vitals: Last Vital Signs Temp 36.6 C 12/07/20 15:59 Pulse 83 12/07/20 15:59 Resp 18 12/07/20 15:59 BP 120/81 H 12/07/20 15:59 Pulse Ox 96 12/07/20 15:59 CV Function Including HR & BP: Stable Pain Control: Satisfactory Nausea & Vomiting: Negative Mental Status: Baseline Respiratory Status: Airway Patent Hydration Status: Satisfactory Anesthesia Complications: None
[2020-12-07] MEDS: QUEtiapine 100 MG TABLET PO SCH (20:41)
[2020-12-08] MEDS: SODIUM CHLORIDE FLUSH 0.9% 10 ML SYRINGE IVP SCH ×4 (00:31→23:36)
[2020-12-08] MEDS: GABAPENTIN 300 MG CAPSULE PO SCH ×3 (05:29→21:22)
[2020-12-08] MEDS: SODIUM CHLORIDE FLUSH 0.9% 10 ML SYRINGE IVP PRN ×3 (05:29→21:26)
[2020-12-08] MEDS: PIPERACILLIN/TAZOBACTAM 3.375 GM in SODIUM CHLORIDE 0.9% MINIBAG 100 ML IV SCH ×3 (05:29→21:25)
[2020-12-08 05:42] LABS: BASOPHILS # (AUTO) 0.1 10^3/uL (0.0-0.1); BASOPHILS % (AUTO) 0.8 %; EOSINOPHILS # (AUTO) 0.6 10^3/uL (0.0-0.7); EOSINOPHILS % (AUTO) 10.2 %; HCT - HEMATOCRIT 29.8 % (37.0-47.0); LYMPHOCYTES # (AUTO) 1.4 10^3/uL (1.5-3.5); LYMPHOCYTES % (AUTO) 23.6 %; MEAN CORPUSCULAR HEMOGLOBIN 30.3 pg (27.0-31.0); MEAN CORPUSCULAR HGB CONC 33.6 g/dL (32.0-36.0); MEAN CORPUSCULAR VOLUME 90.3 fL (81.0-99.0); MEAN PLATELET VOLUME 10.1 fL (7.9-10.8); MONOCYTES # (AUTO) 0.5 10^3/uL (0.0-1.0); NEUTROPHILS # (AUTO) 3.3 10^3/uL (1.5-6.6); NEUTROPHILS % (AUTO) 56.2 %; PLT - PLATELET COUNT 158 10^3/uL (130-450); WHITE BLOOD COUNT 5.9 x10^3/uL (4.8-10.8)
[2020-12-08 05:56] LABS: CALCIUM 8.7 mg/dL (8.5-10.3); MAGNESIUM 1.7 mg/dL (1.7-2.8); POTASSIUM 3.7 mmol/L (3.5-5.0)
[2020-12-08] MEDS: oxyCODONE 5 MG TABLET PO PRN ×2 (08:00→16:32)
[2020-12-08] MEDS: MAGNESIUM OXIDE 400 MG TABLET PO SCH (08:01)
[2020-12-08] MEDS: METOPROLOL SUCCINATE 50 MG TABLET PO SCH (08:03)
[2020-12-08] MEDS: CITALOPRAM 10 MG TABLET PO SCH (08:03)
[2020-12-08] MEDS: PANTOPRAZOLE 40 MG VIAL IVP SCH ×2 (08:04→21:26)
--- NOTE | 2020-12-08 08:42 | PROVIDER PROGRESS NOTE ---
Assessment/Plan - Problem List (1) GI bleed Assessment/Plan: EGD done yesterday 12/07/2020 showed duodenal inflammation in the duodenal bulb. It also showed esophagitis and gastritis. Biopsies were obtained. Results pending. Patient is on Protonix 40 mg IV twice daily. We will switch to Protonix 40 mg p .o. twice daily upon discharge. Patient is on a regular diet and tolerating well. She reports black stools today. This is likely residual. Hemoglobin remained stable at 10. If no belt changer the next 24 hours, will discharge the patient tomorrow 12/09/2020. (2) Anemia due to GI blood loss Assessment/Plan: Possibly related to GI bleed. Patient's hemoglobin was as low as 6.7 on 12/06/20. She was transfused 2 units of packed red blood cells. Her hemoglobin has been stable over the past 2 days. Hemoglobin today is 10. (3) Colitis Assessment/Plan: This was noted on CT of the abdomen/ pelvis. The patient is on Zosyn. Continue for now and discontinue upon discharge. (4) Anxiety Assessment/Plan: On Celexa (5) Bipolar disorder Assessment/Plan: On Seroquel. (6) Neoplasm of uncertain behavior Assessment/Plan: Patient has been advised to follow-up with dermatology in the outpatient setting - Current Meds Current Meds: Current Medications Generic Name Dose Route Start Last Admin Trade Name Freq PRN Reason Stop Dose Admin Albuterol 2.5 mg 12/06/20 12:45 12/07/20 07:57 Albuterol Neb 2.5 Mg/3 Ml INH 2.5 mg RTQ4H PRN Administration Wheezing Citalopram Hydrobromide 40 mg 12/06/20 09:00 12/08/20 08:03 Citalopram 10 Mg Tablet PO 40 mg DAILY MORENITA Administration Gabapentin 600 mg 12/06/20 06:00 12/08/20 05:29 Gabapentin 300 Mg Capsule PO 600 mg TID [facility] Administration Piperacillin Sod/Tazobactam 100 mls @ 25 mls/hr 12/06/20 22:00 12/08/20 05:29 Sod 3.375 gm/ Sodium Chloride IV 25 mls/hr Q8H [facility] Administration Magnesium Oxide 400 mg 12/07/20 14:00 12/08/20 08:01 Magnesium Oxide 400 Mg Tablet PO 400 mg DAILYWM [facility] Administration Metoprolol Succinate 100 mg 12/07/20 11:00 12/08/20 08:03 Metoprolol Succinate 50 Mg Tablet PO 100 mg DAILY [facility] Administration Oxycodone HCl 5 mg 12/05/20 21:34 12/08/20 08:00 Oxycodone 5 Mg Tablet PO 5 mg Q4HR PRN Administration Pain 5 to 7 Pantoprazole Sodium 40 mg 12/06/20 09:00 12/08/20 08:04 Pantoprazole 40 Mg Vial IVP 40 mg BID [facility] Administration Quetiapine Fumarate 200 mg 12/05/20 23:25 12/07/20 20:41 Quetiapine 100 Mg Tablet PO 200 mg QPM [facility] Administration Sodium Chloride 10 ml 12/05/20 21:34 12/08/20 08:04 Sodium Chloride Flush 0.9% 10 Ml Syringe IVP 10 ml PRN PRN Administration NEEDED PER PROVIDER ORDERS Sodium Chloride 10 ml 12/06/20 01:00 12/08/20 00:31 Sodium Chloride Flush 0.9% 10 Ml Syringe IVP Not Given 0100,0900,1700 MORENITA - Lab Result Fish Bone Diagrams: 12/08/20 05:24 12/08/20 05:24 Subjective - Subjective Patient Reports: Other (Resting comfortably in bed. Denies chest pain, dyspnea, abdominal pain, fever or chills. Reported about 3 black and loose bowel movements since yesterday. Tolerated a regular diet without any difficulty.) Objective Vital Signs: Vital Signs - 24 hr 12/07/20 12/07/20 12/07/20 10:08 11:10 15:59 Temperature 37.0 C 36.6 C Heart Rate Heart Rate [ 106 H Brachial] Heart Rate [ 83 83 Monitoring electrodes] Respiratory 18 18 Rate Blood Pressure 154/90 H 110/79 120/81 H [Right Brachial artery] O2 Saturation 98 96 12/07/20 12/07/20 12/08/20 20:30 21:00 00:24 Temperature 36.9 C 36.8 C Heart Rate 84 Heart Rate [ 88 Brachial] Heart Rate [ 84 Monitoring electrodes] Respiratory 18 18 14 Rate Blood Pressure 164/95 H 113/75 [Right Brachial artery] O2 Saturation 98 90 L 12/08/20 12/08/20 05:36 08:10 Temperature 36.3 C L 36.3 C L Heart Rate Heart Rate [ 78 Brachial] Heart Rate [ 85 Monitoring electrodes] Respiratory 16 18 Rate Blood Pressure 143/87 H 149/98 H [Right Brachial artery] O2 Saturation 99 93 Oxygen O2 Source Room air I&O (Last 24 Hrs): Intake and Output Totals x24h 12/06/20 12/07/20 12/08/20 23:59 23:59 23:59 Intake Total 3155.000 1370.000 100 Output Total 100 Balance 3155.000 1270.000 100 General: Alert, Oriented x3, No acute distress HEENT: Atraumatic, PERRLA, EOMI Neck: Supple, No JVD Neuro: Alert, Oriented Times 3 Cardiovascular: Regular rate, Normal S1, Normal S2, No murmurs Respiratory: Chest non-tender, No respiratory distress, Breath sounds nml Abdomen: Normal bowel sounds, Soft, No tenderness Extremities: No clubbing, No cyanosis, No edema Skin: No rashes, No breakdown, No significant lesion - Results Results: Laboratory Results WBC 5.9 x10^3/uL (4.8-10.8) 12/08/20 05:24 RBC 3.30 10^6/uL (4.20-5.40) L 12/08/20 05:24 Hgb 10.0 g/dL (12.0-16.0) L 12/08/20 05:24 Hct 29.8 % (37.0-47.0) L 12/08/20 05:24 MCV 90.3 fL (81.0-99.0) 12/08/20 05:24 MCH 30.3 pg (27.0-31.0) 12/08/20 05:24 MCHC 33.6 g/dL (32.0-36.0) 12/08/20 05:24 RDW 16.0 % (12.0-15.0) H 12/08/20 05:24 Plt Count 158 10^3/uL (130-450) 12/08/20 05:24 MPV 10.1 fL (7.9-10.8) 12/08/20 05:24 Neut # (Auto) 3.3 10^3/uL (1.5-6.6) 12/08/20 05:24 Lymph # (Auto) 1.4 10^3/uL (1.5-3.5) L 12/08/20 05:24 [place] # (Auto) 0.5 10^3/uL (0.0-1.0) 12/08/20 05:24 Eos # (Auto) 0.6 10^3/uL (0.0-0.7) 12/08/20 05:24 Baso # (Auto) 0.1 10^3/uL (0.0-0.1) 12/08/20 05:24 Absolute Nucleated RBC 0.00 x10^3/uL 12/08/20 05:24 Nucleated RBC % 0.0 /100WBC 12/08/20 05:24 PT 13.0 secs (9.9-12.6) H 12/05/20 19:25 INR 1.2 (0.8-1.2) 12/05/20 19:25 Sodium 137 mmol/L (135-145) 12/08/20 05:24 Potassium 3.7 mmol/L (3.5-5.0) 12/08/20 05:24 Chloride 102 mmol/L (101-111) 12/08/20 05:24 Carbon Dioxide 30 mmol/L (21-32) 12/08/20 05:24 Anion Gap 5.0 (6-13) L 12/08/20 05:24 BUN 26 mg/dL (6-20) H 12/08/20 05:24 Creatinine 1.0 mg/dL (0.4-1.0) 12/08/20 05:24 Estimated GFR (MDRD) 56 (>89) L 12/08/20 05:24 Glucose 89 mg/dL (70-100) 12/08/20 05:24 POC Whole Bld Glucose 117 mg/dL (70 - 100) H 12/06/20 12:23 Calcium 8.7 mg/dL (8.5-10.3) 12/08/20 05:24 Magnesium 1.7 mg/dL (1.7-2.8) 12/08/20 05:24 Total Bilirubin 0.7 mg/dL (0.2-1.0) 12/05/20 18:43 AST 22 IU/L (10-42) 12/05/20 18:43 ALT 12 IU/L (10-60) 12/05/20 18:43 Alkaline Phosphatase 43 IU/L (42-121) 12/05/20 18:43 Total Protein 6.8 g/dL (6.7-8.2) 12/05/20 18:43 Albumin 4.1 g/dL (3.2-5.5) 12/05/20 18:43 Globulin 2.7 g/dL (2.1-4.2) 12/05/20 18:43 Albumin/Globulin Ratio 1.5 (1.0-2.2) 12/05/20 18:43 Lipase 33 U/L (22-51) 12/05/20 18:43 Nasal Adenovirus (PCR) NOT DETECTED 12/05/20 18:45 Nasal B. parapertussis DNA (PCR) NOT DETECTED 12/05/20 18:45 Nasal Coronavir 229E PCR NOT DETECTED 12/05/20 18:45 Nasal Coronavir HKU1 PCR NOT DETECTED 12/05/20 18:45 Nasal Coronavir NL63 PCR NOT DETECTED 12/05/20 18:45 Nasal Coronavir OC43 PCR NOT DETECTED 12/05/20 18:45 Nasal Enterovir/Rhinovir PCR NOT DETECTED 12/05/20 18:45 Nasal Influenza B PCR NOT DETECTED 12/05/20 18:45 Nasal Influenza A PCR NOT DETECTED 12/05/20 18:45 Nasal Parainfluen 1 PCR NOT DETECTED 12/05/20 18:45 Nasal Parainfluen 2 PCR NOT DETECTED 12/05/20 18:45 Nasal Parainfluen 3 PCR NOT DETECTED 12/05/20 18:45 Nasal Parainfluen 4 PCR NOT DETECTED 12/05/20 18:45 Nasal RSV (PCR) NOT DETECTED 12/05/20 18:45 Nasal B.pertussis DNA PCR NOT DETECTED 12/05/20 18:45 Nasal C.pneumoniae (PCR) NOT DETECTED 12/05/20 18:45 Matthew Human Metapneumo PCR NOT DETECTED 12/05/20 18:45 Nasal M.pneumoniae (PCR) NOT DETECTED 12/05/20 18:45 Nasal SARS-CoV-2 (PCR) NOT DETECTED 12/05/20 18:45 Stl C. diff Tox B Gene NEGATIVE (NEGATIVE) 12/05/20 19:03 Stool H. pylori Ag NEGATIVE (Negative) 12/06/20 21:03 Ethyl Alcohol < 5.0 mg/dL 12/05/20 18:43 Blood Type B POSITIVE 12/05/20 19:25 Blood Type Recheck B POSITIVE 12/05/20 18:43 Antibody Screen NEGATIVE 12/05/20 19:25 Crossmatch IS Only See Detail 12/05/20 19:25 ABX Reporting Has patient been on IV antibiotics over the past 48 hours?: No
[2020-12-08] MEDS ORDERED: PHENOL THROAT SPRAY 177 ML MM PRN (17:37)
[2020-12-08] MEDS ORDERED: METOPROLOL TARTRATE 50 MG TABLET PO STA (17:37)
[2020-12-08] MEDS: QUEtiapine 100 MG TABLET PO SCH (21:23)
[2020-12-09] MEDS: PIPERACILLIN/TAZOBACTAM 3.375 GM in SODIUM CHLORIDE 0.9% MINIBAG 100 ML IV SCH (05:43)
[2020-12-09] MEDS: GABAPENTIN 300 MG CAPSULE PO SCH (05:44)
[2020-12-09 06:08] LABS: BASOPHILS # (AUTO) 0.1 10^3/uL (0.0-0.1); BASOPHILS % (AUTO) 1.4 %; EOSINOPHILS # (AUTO) 0.7 10^3/uL (0.0-0.7); EOSINOPHILS % (AUTO) 13.2 %; HCT - HEMATOCRIT 30.2 % (37.0-47.0); HGB - HEMOGLOBIN 10.1 g/dL (12.0-16.0); LYMPHOCYTES # (AUTO) 1.6 10^3/uL (1.5-3.5); LYMPHOCYTES % (AUTO) 27.9 %; MEAN CORPUSCULAR HEMOGLOBIN 30.3 pg (27.0-31.0); MEAN CORPUSCULAR HGB CONC 33.4 g/dL (32.0-36.0); MEAN CORPUSCULAR VOLUME 90.7 fL (81.0-99.0); MEAN PLATELET VOLUME 10.2 fL (7.9-10.8); MONOCYTES # (AUTO) 0.5 10^3/uL (0.0-1.0); MONOCYTES % (AUTO) 9.2 %; NEUTROPHILS # (AUTO) 2.7 10^3/uL (1.5-6.6); NEUTROPHILS % (AUTO) 48.1 %; PLT - PLATELET COUNT 194 10^3/uL (130-450); RED BLOOD COUNT 3.33 10^6/uL (4.20-5.40); RED CELL DISTRIBUTION WIDTH 15.3 % (12.0-15.0); WHITE BLOOD COUNT 5.6 x10^3/uL (4.8-10.8)
[2020-12-09 06:12] LABS: CALCIUM 8.8 mg/dL (8.5-10.3); MAGNESIUM 1.6 mg/dL (1.7-2.8); POTASSIUM 3.6 mmol/L (3.5-5.0)
--- NOTE | 2020-12-09 07:55 | DISCHARGE SUMMARY ---
Discharge Summary Admit Date: 12/05/20 Discharge Date: 12/09/20 Discharging Provider: Giselle Ko Primary Care Provider: Matthew Snowden Code Status: Attempt Resuscitation Condition at Discharge: Good Discharge Disposition: 01 Home, Self Care - DIAGNOSES Admission Diagnoses: GI bleed Anemia due to GI blood loss Colitis Hyponatremia Lung cancer Bipolar disorder Discharge Diagnoses with Status of Each Condition: GI bleed: Acute. Patient had EGD. Protonix 40 p.o. twice daily Anemia due to GI blood loss: Acute. Secondary to GI bleed. Status post 2 units of packed red blood cell transfusion. Colitis: Acute. Zosyn for 4 days. Hyponatremia: Acute. Resolved Lung cancer: Past history in remission Bipolar disorder: Chronic. 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 Patient instructed to follow-up with dermatology in the outpatient setting - HPI History of Present Illness: Per HPI: This is a 60-year-old female with a past medical history significant for lung cancer now in remission, hypertension, bipolar disorder who presents today complaining of diarrhea that began this morning at 4 AM. She states she has had approximately 10 bowel movements today. Initially it was not bloody but later it became bloody with dark stools. She reports very minimal abdominal pain. Denies fevers or chills. She states she was in her usual state of health the past few days. She does admit to a poor appetite overall and she is not sure why. She denies any nausea or vomiting. She states she does take aspirin 81 mg daily but denies any other NSAID use. She does drink on average 1 alcoholic beverage a day and has been doing so for the past few months. She reports having a colonoscopy within the past year which was normal and this was done in [place]. She does not believe she has ever had an endoscopy. She denies any recent travel or sick contacts. She denies any change in her diet. She does admit to a weight loss since her diagnosis of cancer but she states her weight has been stable now over the past few months. In the emergency department, she was noted to be afebrile. She was tachycardic with a heart rate in the 110s. She was hypertensive with systolic ranging from 130s to 150s. Labs reveal hemoglobin 11.6 which dropped to 10.7 within 2 hours. Her BUN was elevated at 71. Sodium was 132. C. difficile was negative. She underwent a CT of the abdomen and pelvis which suggested gastritis and colitis. This was discussed with general surgery who recommended starting Zosyn and admitting the patient to the medicine service. Given her ongoing bleeding and drop in hemoglobin, medicine was consulted for admission. I did discuss goals of care with the patient and she would like to be a full code. Hospital stay her lowest hemoglobin was 6.7. As a result she was transfused 2 units of packed red blood cells. She was maintained on Protonix 40 mg IV twice daily. She underwent an EGD by Dr. Sarah Dumont with general surgery. It showed duodenal inflammation in the duodenal bulb. Multiple biopsies were performed. Pathology pending. It also showed mild gastritis. She was noted to have a lesion on her right ear for which she was advised to follow-up with dermatology in the outpatient setting. Patient's hemoglobin stayed stable around 10 for 3 days. She was discharged home with a prescription of Protonix 40 mg p.o. twice daily. She is to follow-up with her primary care physician for her pathology results and for continued management of acid reflux and gastritis. The rest of the patient's hospital stay was unremarkable. - ALLERGIES Allergies/Adverse Reactions: Allergies Allergy/AdvReac Type Severity Reaction Status Date / Time aloe Allergy Itching Verified 12/05/20 18:22 Bleach (Sodium Hypochlorite) Allergy Hives Verified 12/05/20 18:22 Sulfa (Sulfonamide Allergy Itching Verified 12/05/20 18:22 Antibiotics) sulfamethoxazole Allergy Unknown Verified 12/05/20 18:22 [From ] trimethoprim [From ] Allergy Unknown Verified 12/05/20 18:22 - MEDICATIONS Home Medications: Ambulatory Orders Medication Instructions Recorded Confirmed Citalopram [CeleXA] 40 mg PO DAILY 01/29/13 12/06/20 Gabapentin 600 mg PO TID 01/29/13 12/06/20 QUEtiapine [SEROquel] 200 mg ORAL QPM 02/25/14 12/06/20 Meloxicam 15 mg PO DAILY 12/11/16 12/06/20 Albuterol Sulfate [Proair 2 puffs INH Q4H PRN 12/06/20 12/06/20 Respiclick] Metoprolol Succinate 100 mg PO DAILY 12/06/20 12/06/20 Varenicline Tartrate 0.5 mg PO TID 12/06/20 12/06/20 Pantoprazole [Protonix] 40 mg PO BID 30 Days #60 tablet 12/09/20 - PHYSICAL EXAM AT DISCHARGE General Appearance: positive: No acute distress, Alert Eyes Bilateral: positive: PERRL, EOMI ENT: positive: No signs of dehydration Neck: positive: No JVD, Trachea midline Respiratory: positive: Chest non-tender, No respiratory distress, Breath sounds nml. negative: Wheezes, Rales, Rhonchi Cardiovascular: positive: Regular rate & rhythm, No murmur Abdomen: positive: Non-tender, No organomegaly, Nml bowel sounds. negative: No distention, Guarding, Rebound Back: positive: Nml inspection Skin: positive: Color nml, No rash, Warm, Dry Extremities: positive: Non-tender, Full ROM, Nml appearance, No pedal edema Neurologic/Psychiatric: positive: Oriented x3, Mood/affect nml - LABS Result Diagrams: 12/09/20 05:31 12/09/20 05:31 - TIME SPENT Time Spent in Discharge (Minutes): 25
--- NOTE | 2020-12-09 07:55 | Discharge Plan ---
Discharge Plan Problem Reviewed?: Yes Disposition: Home, Self Care Condition: Good Prescriptions: Pantoprazole [Protonix] 40 mg PO BID 30 Days #60 tablet Diet: Soft Activity Restrictions: Activity as Tolerated Instruction Topics: Pantoprazole tablets, Bleeding Gastrointestinal Health Concerns: You were admitted on 12/05/2020 with GI bleed. During your hospital stay your hemoglobin dropped to as low as 6.7. Required 2 units of blood transfusion. You underwent an EGD on 12/07/2020 which showed esophagitis, duodenitis. Biopsies were taken and sent to pathology. You were treated with Protonix 40 mg IV twice daily during your hospital stay. Upon discharge you will be prescribed Protonix 40 mg p.o. twice daily. Your hemoglobin remained stable at 10 for 3 days. You did not have any other episodes of GI bleed during your stay. You are being discharged in stable condition. You may follow-up with your primary care physician Dr. Matthew Cruz within 7 days or as needed if sooner. The above plan was discussed with you, you expressed understanding and are in agreement. No Smoking: If you smoke, Please STOP! Call for help. Follow-up with: Matthew Cruz DO [Primary Care Provider] -
[2020-12-09] MEDS ORDERED: NON FORMULARY MED (Metoprolol Succinate [Metoprolol Succinate] 100 MG Tab.Er.24h) PO SCH (09:00)
[2020-12-09] MEDS: PANTOPRAZOLE 40 MG VIAL IVP SCH (09:04)
[2020-12-09] MEDS: METOPROLOL SUCCINATE 50 MG TABLET PO SCH (09:05)
[2020-12-09] MEDS: CITALOPRAM 10 MG TABLET PO SCH (09:05)
[2020-12-09] MEDS: MAGNESIUM OXIDE 400 MG TABLET PO SCH (09:05)
[2020-12-09] MEDS: SODIUM CHLORIDE FLUSH 0.9% 10 ML SYRINGE IVP SCH (09:05)
[2020-12-09] MEDS: SODIUM CHLORIDE FLUSH 0.9% 10 ML SYRINGE IVP PRN (09:06)
[2020-12-09 13:45] VITALS: BP 134/84
== END 2020-12-09 13:50 | disposition home or self-care (01) | DRG 378 ==
LOC: EDUNIT# → ED 18:01 → UNDOADMIN 21:34 → MS2 21:34
PROVIDERS: ADMIT Internal Medicine; ATTEND Internal Medicine
PROC: 0DB68ZX Excision of Stomach, Via Natural or Artificial Opening Endoscopic, Diagnostic (ICD-10-PCS; 2020-12-07)
PROC: 0DB48ZX Excision of Esophagogastric Junction, Via Natural or Artificial Opening Endoscopic, Diagnostic (ICD-10-PCS; 2020-12-07)
PROC: 30233N1 Transfusion of Nonautologous Red Blood Cells into Peripheral Vein, Percutaneous Approach (ICD-10-PCS; 2020-12-07)
PROC: 0DB98ZX Excision of Duodenum, Via Natural or Artificial Opening Endoscopic, Diagnostic (ICD-10-PCS; principal; 2020-12-07 13:00)
DX: K29.71 Gastritis, unspecified, with bleeding (principal); K52.9 Noninfective gastroenteritis and colitis, unspecified; K26.0 Acute duodenal ulcer with hemorrhage; D62 Acute posthemorrhagic anemia; F17.200 Nicotine dependence, unspecified, uncomplicated; E87.1 Hypo-osmolality and hyponatremia; C34.2 Malignant neoplasm of middle lobe, bronchus or lung; K25.4 Chronic or unspecified gastric ulcer with hemorrhage; K52.89 Other specified noninfective gastroenteritis and colitis; K21.00 Gastro-esophageal reflux disease with esophagitis, without bleeding; F41.0 Panic disorder [episodic paroxysmal anxiety]; Z79.899 Other long term (current) drug therapy; Z20.822 Contact with and (suspected) exposure to COVID-19; F31.9 Bipolar disorder, unspecified; F41.9 Anxiety disorder, unspecified; I10 Essential (primary) hypertension; D48.5 Neoplasm of uncertain behavior of skin; M79.7 Fibromyalgia; G89.29 Other chronic pain; M54.9 Dorsalgia, unspecified; M19.90 Unspecified osteoarthritis, unspecified site; F17.210 Nicotine dependence, cigarettes, uncomplicated; Z72.89 Other problems related to lifestyle; Z79.82 Long term (current) use of aspirin; Z80.0 Family history of malignant neoplasm of digestive organs
CPT/HCPCS: 36415; 74177; 80048; 80053; 81599; 82272; 83690; 83735; 85014; 85018; 85025; 85027; 85610; 86850; 86900; 86901; 86920; 87329; 87338; 87493; 87631; 87798; 93005; 94640; 96374; 96375; 99284; 99285; A9270; G0480; J7120; P9016; Q9967; 0202U; 80320; 87045; 87046; 87427; 87449

== ENCOUNTER 2021-06-18 13:09 | Outpatient (CLI) | payer MEDICARE, MEDICAID ==
--- NOTE | 2021-06-18 17:48 | CT Report ---
PROCEDURE: CHEST WO INDICATIONS: COPD, LUNG CA TECHNIQUE: Noncontrast 1mm axial images were acquired from the pulmonary apices to the posterior costophrenic an gles. Axial 5 mm soft tissue kernel reconstructions were performed as well as 8 mm axial MIP and cor onal and sagittal 5 mm reformations. For radiation dose reduction, the following was used: automate d exposure control, adjustment of mA and/or kV according to patient size. COMPARISON: CT chest with and without, 05/28/2018. CT chest with, 09/08/2017 FINDINGS: Image quality: Excellent. Lungs and pleura: Severe emphysema. Subpleural densities in the right upper and mid lung are most li brandt scars and atelectasis. Right basilar scars and atelectasis. No acute air space opacities. There are multiple calcified granulomas in the left upper lobe. No pleural effusions or pneumothorax. Enrico tral and peripheral airways are patent and normal in caliber. Mediastinum: Heart size is normal. Mild coronary calcification. No pericardial effusion. No medias tinal adenopathy by size criteria. Thoracic aorta and central pulmonary arteries are normal in size. Esophagus is normal in caliber. No hiatal hernia. Bones and chest wall: No suspicious bony lesions. No vertebral body compression fractures. No axil saad or supraclavicular adenopathy by size criteria. The thyroid is normal in size and there are no incidental findings. Abdomen: There is a 4.5 x 7.4 cm subcapsular cystic mass in the posterior right hepatic lobe, unchang ed. IMPRESSION: 1. Suboptimal for tumor evaluation in the absence of intravenous contrast. 2. Right upper and mid lung densities are most likely scars and atelectasis. 3. No mediastinal lymphadenopathy. 4. Severe emphysema. 5. A 4.5 x 7.4 cm subcapsular cystic mass in the posterior right hepatic lobe. Reviewed by: Vitaly Cisneros MD on 06/18/2021 5:47 PM PDT Approved by: Vitaly Cisneros MD on 06/18/2021 5:47 PM PDT Station ID: [id number]
== END 2021-06-18 13:10 | disposition home or self-care (01) ==
LOC: DI 13:09
PROVIDERS: ATTEND Family Medicine
DX: C34.90 Malignant neoplasm of unspecified part of unspecified bronchus or lung (principal); R91.8 Other nonspecific abnormal finding of lung field; J43.9 Emphysema, unspecified; R16.0 Hepatomegaly, not elsewhere classified

== ENCOUNTER 2021-06-24 09:32 | Outpatient (CLI) | payer MEDICARE, MEDICAID ==
[2021-06-24 09:53] LABS: BASOPHILS # (AUTO) 0.1 10^3/uL (0.0-0.1); BASOPHILS % (AUTO) 1.2 %; EOSINOPHILS # (AUTO) 0.2 10^3/uL (0.0-0.7); HCT - HEMATOCRIT 45.9 % (37.0-47.0); HGB - HEMOGLOBIN 15.4 g/dL (12.0-16.0); LYMPHOCYTES # (AUTO) 1.6 10^3/uL (1.5-3.5); LYMPHOCYTES % (AUTO) 24.2 %; MEAN CORPUSCULAR HEMOGLOBIN 30.9 pg (27.0-31.0); MEAN CORPUSCULAR HGB CONC 33.6 g/dL (32.0-36.0); MEAN PLATELET VOLUME 10.2 fL (7.9-10.8); MONOCYTES # (AUTO) 0.6 10^3/uL (0.0-1.0); MONOCYTES % (AUTO) 9.5 %; NEUTROPHILS # (AUTO) 4.1 10^3/uL (1.5-6.6); NEUTROPHILS % (AUTO) 61.9 %; PLT - PLATELET COUNT 285 10^3/uL (130-450); RED BLOOD COUNT 4.99 10^6/uL (4.20-5.40); RED CELL DISTRIBUTION WIDTH 12.9 % (12.0-15.0); WHITE BLOOD COUNT 6.6 x10^3/uL (4.8-10.8)
[2021-06-24 10:06] LABS: ALBUMIN 4.4 g/dL (3.2-5.5); ALBUMIN/GLOBULIN RATIO 1.2 (1.0-2.2); BILIRUBIN,TOTAL 0.7 mg/dL (0.2-1.0); CALCIUM 9.7 mg/dL (8.5-10.3); CREATININE 1.1 mg/dL (0.4-1.0); POTASSIUM 3.5 mmol/L (3.5-5.0)
== END 2021-06-24 09:33 | disposition home or self-care (01) ==
LOC: LAB 09:32
PROVIDERS: ATTEND Family Medicine
DX: C34.90 Malignant neoplasm of unspecified part of unspecified bronchus or lung (principal); E87.1 Hypo-osmolality and hyponatremia
CPT/HCPCS: 36415; 80053; 85025

== ENCOUNTER 2021-07-02 12:46 | Outpatient (CLI) | payer MEDICARE, MEDICAID ==
[2021-07-02] MEDS ORDERED: ALBUTEROL 1 PUFF INH STA (17:26)
== END 2021-07-02 12:47 | disposition home or self-care (01) ==
LOC: RT 12:46
PROVIDERS: ATTEND Family Medicine
DX: C34.90 Malignant neoplasm of unspecified part of unspecified bronchus or lung (principal); J44.9 Chronic obstructive pulmonary disease, unspecified
CPT/HCPCS: 94060; 94727; 94729

== ENCOUNTER 2021-10-29 10:38 | Outpatient (CLI) | payer MEDICARE, MEDICAID | END 2021-10-29 10:39 | disposition critical access hospital (66) | LOC: EMS 10:38 | DX: R19.5 Other fecal abnormalities (principal); R10.10 Upper abdominal pain, unspecified; Z99.81 Dependence on supplemental oxygen | CPT/HCPCS: A0425; A0429 ==

== ENCOUNTER 2021-10-29 10:44 | Emergency (ER) | payer MEDICARE, MEDICAID ==
--- NOTE | 2021-10-29 10:57 | ED Physician Documentation ---
PD HPI GI BLEED - Stated complaint Stated Complaint: ABD PX - History obtained from History obtained from: Patient, EMS - History of Present Illness Timing - onset: How many days ago (3) Timing - duration: Days (3) Timing - details: Gradual onset, Still present Associated symptoms: Black/tarry stool, Diarrhea Contributing factors: No: Recent antibiotics, Alcohol use, Aspirin use, NSAID use Improved by: Laying still Similar symptoms before: Diagnosis (bleeding ulcer) Recently seen: Not recently seen - Additional information Additional information: 61-year-old [place] Ruth has a past history of stage IV lung cancer for which she has been treated with Keytruda and is currently in remission. She has had her port removed. She has had a bleeding ulcer 1 year ago. She required hospitalization for that. She has had dark tarry stool for the past 3 days. She feels weak and is having more difficulty breathing. She has not otherwise been ill and she denies any use of anti-inflammatories or alcohol. Review of Systems Constitutional: reports: Fatigue. denies: Fever, Chills Eyes: denies: Decreased vision Nose: denies: Congestion Throat: denies: Sore throat Cardiac: denies: Chest pain / pressure, Palpitations, Pedal edema, Calf pain Respiratory: reports: Dyspnea, Cough GI: reports: Nausea, Diarrhea, Bloody / black stool. denies: Abdominal Pain, Vomiting : denies: Dysuria, Frequency Skin: denies: Rash Musculoskeletal: denies: Neck pain, Back pain, Extremity pain Neurologic: reports: Generalized weakness. denies: Focal weakness, Numbness PD PAST MEDICAL HISTORY - Past Medical History Cardiovascular: Hypertension Respiratory: Other (Hx Lung Cancer) Neuro: None Endocrine/Autoimmune: None GI: GERD FILM PRINTER: None : None HEENT: None Psych: Depression, Anxiety, Bipolar disorder Musculoskeletal: Osteoarthritis, Fibromyalgia, Chronic back pain Derm: None - Past Surgical History Past Surgical History: Yes General: Bowel surgery /FILM PRINTER: Tubal ligation - Present Medications Home Medications: Ambulatory Orders Medication Instructions Recorded Confirmed Citalopram [CeleXA] 40 mg PO DAILY 01/29/13 12/06/20 Gabapentin 600 mg PO TID 01/29/13 12/06/20 QUEtiapine [SEROquel] 200 mg ORAL QPM 02/25/14 12/06/20 Meloxicam 15 mg PO DAILY 12/11/16 12/06/20 Albuterol Sulfate [Proair 2 puffs INH Q4H PRN 12/06/20 12/06/20 Respiclick] Metoprolol Succinate 100 mg PO DAILY 12/06/20 12/06/20 Varenicline Tartrate 0.5 mg PO TID 12/06/20 12/06/20 Pantoprazole [Protonix] 40 mg PO BID 30 Days #60 tablet 12/09/20 - Allergies Allergies/Adverse Reactions: Allergies Allergy/AdvReac Type Severity Reaction Status Date / Time aloe Allergy Itching Verified 10/29/21 10:56 Bleach (Sodium Hypochlorite) Allergy Hives Verified 10/29/21 10:56 Sulfa (Sulfonamide Allergy Itching Verified 10/29/21 10:56 Antibiotics) sulfamethoxazole Allergy Unknown Verified 10/29/21 10:56 [From ] trimethoprim [From ] Allergy Unknown Verified 10/29/21 10:56 - Social History Does the pt smoke?: Yes Smoking Status: Former smoker Does the pt drink ETOH?: Yes Does the pt have substance abuse?: No - Immunizations Immunizations are current?: Yes - POLST Patient has POLST: No PD ED PE NORMAL - Vitals Vital signs reviewed: Yes (hypertensive ) - General General: Alert and oriented X 3, No acute distress, Well developed/nourished, Other (pale appearing female with a broad smile on her face. ) - HEENT HEENT: Atraumatic, PERRL, EOMI - Neck Neck: Supple, no meningeal sign, No bony TTP - Cardiac Cardiac: RRR, No murmur - Respiratory Respiratory: Other (diminished breath sounds bilat ) - Abdomen Abdomen: Normal bowel sounds, Other (firm with mild general tenderness. 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, No motor deficit, No sensory deficit, Normal speech Eye Opening: Spontaneous Motor: Obeys Commands Verbal: Oriented GCS Score: 15 - Psych Psych: Normal mood, Normal affect Results - Vitals Vitals: Vital Signs - 24 hr 10/29/21 10/29/21 10/29/21 10:50 11:27 13:00 Temperature 36.6 C Heart Rate 86 81 80 Respiratory 17 25 H 15 Rate Blood Pressure 163/95 H 121/88 H 137/91 H O2 Saturation 93 99 100 10/29/21 14:30 Temperature 36.9 C Heart Rate 82 Respiratory 11 L Rate Blood Pressure 132/86 H O2 Saturation 100 Oxygen O2 Source Nasal cannula - Labs Labs: Laboratory Tests 10/29/21 10/29/21 10/29/21 11:05 11:05 11:05 WBC 6.8 RBC 4.05 L Hgb 12.5 Hct 38.4 MCV 94.8 MCH 30.9 MCHC 32.6 RDW 11.8 L Plt Count 288 MPV 10.0 Neut # (Auto) 4.3 Lymph # (Auto) 0.9 L [place] # (Auto) 1.0 Eos # (Auto) 0.5 Baso # (Auto) 0.1 Absolute Nucleated RBC 0.00 Nucleated RBC % 0.0 PT INR Bld Gas Analysis Time Sample Site ABG pH ABG pCO2 ABG pO2 ABG HCO3 ABG Total CO2 ABG O2 Saturation ABG Base Excess Jonah Test O2 Delivery Device O2 Liters/Min Sodium 138 Potassium 4.3 Chloride 89 L Carbon Dioxide 41 H* Anion Gap 8.0 BUN 17 Creatinine 0.8 Estimated GFR (MDRD) 73 L Glucose 141 H Lactic Acid 0.8 Calcium 9.9 Total Bilirubin 0.3 AST 24 ALT 20 Alkaline Phosphatase 84 Total Protein 8.1 Albumin 4.4 Globulin 3.7 Albumin/Globulin Ratio 1.2 Lipase 33 Stl Occult Blood (IFOB) Blood Type Antibody Screen 10/29/21 10/29/21 10/29/21 11:37 11:37 12:33 WBC RBC Hgb Hct MCV MCH MCHC RDW Plt Count MPV Neut # (Auto) Lymph # (Auto) [place] # (Auto) Eos # (Auto) Baso # (Auto) Absolute Nucleated RBC Nucleated RBC % PT 11.5 INR 1.0 Bld Gas Analysis Time Sample Site ABG pH ABG pCO2 ABG pO2 ABG HCO3 ABG Total CO2 ABG O2 Saturation ABG Base Excess Jonah Test O2 Delivery Device O2 Liters/Min Sodium Potassium Chloride Carbon Dioxide Anion Gap BUN Creatinine Estimated GFR (MDRD) Glucose Lactic Acid Calcium Total Bilirubin AST ALT Alkaline Phosphatase Total Protein Albumin Globulin Albumin/Globulin Ratio Lipase Stl Occult Blood (IFOB) NEGATIVE Blood Type B POSITIVE Antibody Screen NEGATIVE 10/29/21 13:40 WBC RBC Hgb Hct MCV MCH MCHC RDW Plt Count MPV Neut # (Auto) Lymph # (Auto) [place] # (Auto) Eos # (Auto) Baso # (Auto) Absolute Nucleated RBC Nucleated RBC % PT INR Bld Gas Analysis Time 1348 Sample Site RIGHT RADIAL ABG pH 7.34 L ABG pCO2 62 H* ABG pO2 36 L* ABG HCO3 32.7 H ABG Total CO2 34.6 H ABG O2 Saturation 70 L* ABG Base Excess 5.2 H Jonah Test POSITIVE O2 Delivery Device NASAL CANNULA O2 Liters/Min 3.00 Sodium Potassium Chloride Carbon Dioxide Anion Gap BUN Creatinine Estimated GFR (MDRD) Glucose Lactic Acid Calcium Total Bilirubin AST ALT Alkaline Phosphatase Total Protein Albumin Globulin Albumin/Globulin Ratio Lipase Stl Occult Blood (IFOB) Blood Type Antibody Screen - Rads (name of study) chest Radiology: Prelim report reviewed (Impression: COPD and right upper lobe scarring. No focal infiltrate, pleural effusion or pneumothorax.), EMP read indepedently, See rad report Procedures - IVC sono (time) 1215 Bedside IVC sono: IVC measures (cm) (0.92), Dehydration (est 1-2 liter deficit) PD MEDICAL DECISION MAKING - ED course Complexity details: reviewed old records, reviewed results, re-evaluated patient, considered differential, d/w patient ED course: 61-year-old female with a history of lung cancer stage IV in remission developed some dark stool and is concerned about the possibility of bleeding as she has had a prior bleeding ulcer. Her stool specimen was watery and dark and was guaiac negative. She admits to 3 days of diarrhea and she is found to be dehydrated on interrogation the inferior vena cava. She has an elevated chloride and volume contraction and this is corrected with saline. She feels much better at the conclusion of treatment. Departure - Departure Disposition: 01 Home, Self Care Clinical Impression: Dehydration, Gastroenteritis Condition: Stable Instructions: ED Dehydration, ED Gastroenteritis Non Infec Follow-Up: Rhianna Meneses ARNP [Primary Care Provider] - Comments: [place], today the dark stool you are having does not contain blood. We did find that you were dehydrated and we corrected this with saline. If you continue to have diarrhea you can get dehydrated again. The expectation with diarrhea is resolution within 5 days. If you continue to have diarrhea it is OK to use immodium over the counter. If you get dehydrated again come and see use for fluids. Diarrhea that lasts longer than 5 days is usually give a course of "empiric" antibiotic. Discharge Date/Time: 10/29/21 14:30
--- NOTE | 2021-10-29 11:13 | XRAY Report ---
PROCEDURE: Chest 1 View X-Ray INDICATIONS: soa TECHNIQUE: One view of the chest was acquired. COMPARISON: CT chest dated 06/19/2019 to FINDINGS: Surgical changes and devices: None. Lungs and pleura: No pleural effusions or pneumothorax. Hyperinflation and chronic emphysematous driss nges are seen. Linear scarring in right upper lung field is again noted. No definite focal infiltrate . Mediastinum: Mediastinal contours appear normal. Heart size is normal. Bones and chest wall: No suspicious bony lesions. Overlying soft tissues appear unremarkable. IMPRESSION: COPD and right upper lobe scarring. No focal infiltrate, pleural effusion or pneumothorax. Reviewed by: Saúl Odonnell MD on 10/29/2021 11:12 AM PDT Approved by: Saúl Odonnell MD on 10/29/2021 11:12 AM PDT Station ID: [id number]
[2021-10-29 11:14] LABS: BASOPHILS # (AUTO) 0.1 10^3/uL (0.0-0.1); BASOPHILS % (AUTO) 1.2 %; EOSINOPHILS # (AUTO) 0.5 10^3/uL (0.0-0.7); EOSINOPHILS % (AUTO) 7.2 %; HCT - HEMATOCRIT 38.4 % (37.0-47.0); HGB - HEMOGLOBIN 12.5 g/dL (12.0-16.0); LYMPHOCYTES # (AUTO) 0.9 10^3/uL (1.5-3.5); LYMPHOCYTES % (AUTO) 13.6 %; MEAN CORPUSCULAR HEMOGLOBIN 30.9 pg (27.0-31.0); MEAN CORPUSCULAR HGB CONC 32.6 g/dL (32.0-36.0); MEAN CORPUSCULAR VOLUME 94.8 fL (81.0-99.0); MONOCYTES % (AUTO) 14.2 %; NEUTROPHILS # (AUTO) 4.3 10^3/uL (1.5-6.6); NEUTROPHILS % (AUTO) 63.7 %; PLT - PLATELET COUNT 288 10^3/uL (130-450); RED BLOOD COUNT 4.05 10^6/uL (4.20-5.40); RED CELL DISTRIBUTION WIDTH 11.8 % (12.0-15.0); WHITE BLOOD COUNT 6.8 x10^3/uL (4.8-10.8)
[2021-10-29 11:54] LABS: ALBUMIN 4.4 g/dL (3.2-5.5); ALBUMIN/GLOBULIN RATIO 1.2 (1.0-2.2); BILIRUBIN,TOTAL 0.3 mg/dL (0.2-1.0); CALCIUM 9.9 mg/dL (8.5-10.3); CREATININE 0.8 mg/dL (0.4-1.0); POTASSIUM 4.3 mmol/L (3.5-5.0); TOTAL PROTEIN 8.1 g/dL (6.7-8.2)
[2021-10-29 12:02] LABS: PT - PROTHROMBIN TIME 11.5 secs (9.9-12.6)
[2021-10-29] MEDS ORDERED: SODIUM CHLORIDE 0.9% 1,000 ML IV STA (12:19)
[2021-10-29 13:13] LABS: FECAL OCCULT BLOOD (FIT) NEGATIVE (NEGATIVE)
[2021-10-29 13:56] LABS: ABG PH 7.34 (7.35-7.45)
[2021-10-29 13:57] LABS: ABG BASE EXCESS 5.2 mmol/L (-2.0-3.0); ABG HCO3 32.7 mmol/L (22.0-26.0); ABG TCO2 34.6 MMOL/L (21.0-29.0); ALLEN TEST POSITIVE
[2021-10-29 14:00] LABS: ABG OXYGEN SATURATION 70 % (94-98); ABG PCO2 62 mmHg (34-45); ABG PO2 36 mmHg (80-100)
[2021-10-29 14:31] VITALS: BP 132/86
== END 2021-10-29 14:30 | disposition home or self-care (01) ==
LOC: EDUNIT# → ED 10:44 → SUPCPDRO 10:44 → ED 14:30
DX: E86.0 Dehydration (principal); K52.9 Noninfective gastroenteritis and colitis, unspecified; I10 Essential (primary) hypertension
CPT/HCPCS: 36415; 36600; 80053; 82274; 82803; 83605; 83690; 85025; 85610; 86850; 86900; 86901; 96360; 99282

== ENCOUNTER 2022-05-24 16:22 | Emergency (ER) | payer MEDICARE, MEDICAID ==
[2022-05-24 16:48] VITALS: BP 152/104
--- OUTSIDE RECORDS SUMMARY | 2022-05-24 16:54 | EXTERNAL MEDICAL SUMMARY RPT | Continuity of Care Document ---
:1960 Author Organization [facility] Address [address] [place] [address] Phone Allergies No information. Encounters No information. Functional Status No information. Immunizations No information. Medications No information. 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 2022-04-27 15:01 Emphysema, unspecified [facility] 2022-04-27 15:25 Malignant neoplasm of upper lobe, [facility] bronchus or lung 2022-04-27 15:25 Malignant neoplasm of unspecified part of [facility] bronchus or 2022-04-27 15:25 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 2022-04-27 15:25 Emphysema, unspecified [facility] 2022-05-23 15:50 Malignant neoplasm of upper lobe, [facility] bronchus or lung 2022-05-23 15:50 Malignant neoplasm of unspecified part of [facility] bronchus or 2022-05-23 15:50 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 Results/Labs No information. Social History No information. Vital Signs No information.
--- NOTE | 2022-05-24 17:18 | ED Physician Documentation ---
History of Present Illness - Stated complaint Stated Complaint: LOW OXYGEN - Chief complaint Chief Complaint: Resp - History obtained from History obtained from: Patient, Friend - Additonal information Additional information: Patient arrives to the emergency department with her friend. She states that she was trying to check her pulse ox at home when it was reading anywhere from 50 to 80-90, back down to 50. She has a history of COPD and a remote history of lung cancer. She is on 2 L nasal cannula at home. She was not having any symptoms. No shortness of breath. No cough. No chest pain. Nothing makes it better or worse. She came in because of the readings on the machine. Review of Systems Constitutional: denies: Fever Cardiac: denies: Chest pain / pressure Respiratory: denies: Dyspnea, Cough, Wheezing PD PAST MEDICAL HISTORY - Past Medical History Cardiovascular: Hypertension Respiratory: Other (Hx Lung Cancer) Neuro: None Endocrine/Autoimmune: None GI: GERD SOCIOLOGY FACULTY MEMBER: None : None HEENT: None Psych: Depression, Anxiety, Bipolar disorder Musculoskeletal: Osteoarthritis, Fibromyalgia, Chronic back pain Derm: None - Past Surgical History Past Surgical History: Yes General: Bowel surgery /SOCIOLOGY FACULTY MEMBER: Tubal ligation - Present Medications Home Medications: Ambulatory Orders Medication Instructions Recorded Confirmed Citalopram [CeleXA] 40 mg PO DAILY 01/29/13 12/06/20 Gabapentin 600 mg PO TID 01/29/13 12/06/20 QUEtiapine [SEROquel] 200 mg ORAL QPM 02/25/14 12/06/20 Meloxicam 15 mg PO DAILY 12/11/16 12/06/20 Albuterol Sulfate [Proair 2 puffs INH Q4H PRN 12/06/20 12/06/20 Respiclick] Metoprolol Succinate 100 mg PO DAILY 12/06/20 12/06/20 Varenicline Tartrate 0.5 mg PO TID 12/06/20 12/06/20 Pantoprazole [Protonix] 40 mg PO BID 30 Days #60 tablet 12/09/20 - Allergies Allergies/Adverse Reactions: Allergies Allergy/AdvReac Type Severity Reaction Status Date / Time aloe Allergy Itching Verified 05/24/22 16:38 Bleach (Sodium Hypochlorite) Allergy Hives Verified 05/24/22 16:38 Sulfa (Sulfonamide Allergy Itching Verified 05/24/22 16:38 Antibiotics) sulfamethoxazole Allergy Unknown Verified 05/24/22 16:38 [From ] trimethoprim [From ] Allergy Unknown Verified 05/24/22 16:38 - Social History Does the pt smoke?: Yes Smoking Status: Former smoker Does the pt drink ETOH?: Yes Does the pt have substance abuse?: No - Immunizations Immunizations are current?: Yes - POLST Patient has POLST: No PD ED PE NORMAL - Vitals Vital signs reviewed: Yes - General General: Alert and oriented X 3, No acute distress - HEENT HEENT: PERRL, Moist mucous membranes - Neck Neck: Supple, no meningeal sign - Cardiac Cardiac: RRR, Strong equal pulses - Respiratory Respiratory: No respiratory distress, Clear bilaterally - Abdomen Abdomen: Soft, Non tender, Non distended - Derm Derm: Warm and dry - Neuro Neuro: Alert and oriented X 3 - Psych Psych: Normal mood, Normal affect Results - Vitals Vitals: Vital Signs - 24 hr 05/24/22 16:27 Temperature 36.9 C Heart Rate 79 Respiratory 16 Rate Blood Pressure 152/104 H O2 Saturation 99 Oxygen O2 Source NC 2L PD Medical Decision Making - ED course Complexity details: considered differential, d/w patient ED course: Patient with what appears to be a faulty pulse oximeter that she was using at home. She did not have any difficulty breathing, no wheezing, no cyanosis. Was speaking normally in full sentences. Oxygen levels here are normal. Recommend that she replace her pulse oximeter at home and return if she worsens. No indication for further work-up at this time. Patient counseled regarding signs and symptoms for which I believe and urgent re-evaluation would be necessary. Patient with good understanding of and agreement to plan and is comfortable going home at this time This document was made in part using voice recognition software. While efforts are made to proofread this document, sound alike and grammatical errors may occur. Departure - Departure Disposition: 01 Home, Self Care Clinical Impression: Encounter for medical screening examination Condition: Good Instructions: ED Screening Exam Medical Nonurgent Comments: Please follow-up with your doctor as needed for any further care. It appears that your home pulse oximetry meter is faulty. I would recommend replacing it. Your oxygen levels are 99 to 100% on your normal 2 L of home oxygen here. Please return if you worsen
== END 2022-05-24 17:27 | disposition home or self-care (01) ==
LOC: ED 16:22
DX: Z13.9 Encounter for screening, unspecified (principal); I10 Essential (primary) hypertension; J44.9 Chronic obstructive pulmonary disease, unspecified; Z99.81 Dependence on supplemental oxygen; Z87.891 Personal history of nicotine dependence
CPT/HCPCS: 99281; 99282

== ENCOUNTER 2023-07-26 21:11 | Outpatient (CLI) | payer MEDICARE, MEDICAID | END 2023-07-26 23:59 | disposition critical access hospital (66) | LOC: EMS 21:11 | DX: R53.81 Other malaise (principal); R53.1 Weakness; R68.83 Chills (without fever) | CPT/HCPCS: A0425; A0429 ==

== ENCOUNTER 2023-07-26 21:43 | Emergency (ER) | payer MEDICARE, MEDICAID ==
--- NOTE | 2023-07-27 00:25 | ED Physician Documentation ---
History of Present Illness - Stated complaint Stated Complaint: SOA - Chief complaint Chief Complaint: Resp - History obtained from History obtained from: Patient - Additonal information Additional information: 62-year-old woman with history of COPD on 3 L home oxygen presents with shortness of breath after her home oxygen was not functioning due to power outage. Patient states she feels better now in the ER with oxygen. Denies fever, increased cough, chest pain. Also endorses malaise for the past 4 months and decreased p.o. intake for the past 6 months. Patient used to have a primary care provider but she retired. Patient is requesting a new PCP. PD PAST MEDICAL HISTORY - Past Medical History Cardiovascular: Hypertension Respiratory: COPD, Other Neuro: None Endocrine/Autoimmune: None GI: GERD CORPORATE ETHICS OFFICER: None : None HEENT: None Psych: Depression, Anxiety, Bipolar disorder Musculoskeletal: Osteoarthritis, Fibromyalgia, Chronic back pain Derm: None - Past Surgical History Past Surgical History: Yes General: Bowel surgery /CORPORATE ETHICS OFFICER: Tubal ligation - Present Medications Home Medications: Ambulatory Orders Medication Instructions Recorded Confirmed Citalopram [CeleXA] 40 mg PO DAILY 01/29/13 12/06/20 Gabapentin 600 mg PO TID 01/29/13 12/06/20 QUEtiapine [SEROquel] 200 mg ORAL QPM 02/25/14 12/06/20 Meloxicam 15 mg PO DAILY 12/11/16 12/06/20 Albuterol Sulfate [Proair 2 puffs INH Q4H PRN 12/06/20 12/06/20 Respiclick] Metoprolol Succinate 100 mg PO DAILY 12/06/20 12/06/20 Varenicline Tartrate 0.5 mg PO TID 12/06/20 12/06/20 Pantoprazole [Protonix] 40 mg PO BID 30 Days #60 tablet 12/09/20 - Allergies Allergies/Adverse Reactions: Allergies Allergy/AdvReac Type Severity Reaction Status Date / Time aloe Allergy Itching Verified 07/26/23 21:52 Bleach (Sodium Hypochlorite) Allergy Hives Verified 07/26/23 21:52 Sulfa (Sulfonamide Allergy Itching Verified 07/26/23 21:52 Antibiotics) sulfamethoxazole Allergy Unknown Verified 07/26/23 21:52 [From ] trimethoprim [From ] Allergy Unknown Verified 07/26/23 21:52 - Social History Does the pt smoke?: Yes Smoking Status: Current every day smoker Does the pt drink ETOH?: Yes Does the pt have substance abuse?: No - Immunizations Immunizations are current?: Yes - POLST Patient has POLST: No PD ED PE NORMAL - Vitals Vital signs reviewed: Yes - General General: Alert and oriented X 3, No acute distress, Other (Emaciated appearing) - HEENT HEENT: Atraumatic, PERRL, EOMI, Moist mucous membranes, Pharynx benign - Neck Neck: Supple, no meningeal sign - Cardiac Cardiac: RRR - Respiratory Respiratory: No respiratory distress, Clear bilaterally, Other (No increased work of breathing) - Abdomen Abdomen: Non tender, Non distended Results - Vitals Vitals: Vital Signs - 24 hr 07/26/23 07/26/23 21:49 23:52 Temperature 36.2 C L Heart Rate 93 89 Respiratory 24 16 Rate Blood Pressure 135/83 H 125/85 H O2 Saturation 94 92 If not protocol 3 : Oxygen Flow, liters/minute Oxygen O2 Source Nasal cannula Oxygen Flow Rate 3 PD Medical Decision Making - ED course ED course: 62-year-old woman presents with multiple chronic complaints as well as shortness of breath the past couple of days because her power was out. She states that the issue is now resolved. She is feeling better now that she is back on her 3 L maintenance level of oxygen. No increased work of breathing and heart and lung exam is benign. Return precautions discussed. Plan to follow-up with a PCP (referral list provided). Departure - Departure Disposition: 01 Home, Self Care Clinical Impression: COPD (chronic obstructive pulmonary disease) Condition: Stable Instructions: COPD Dc Comments: You were seen in the emergency department for copd. Please follow-up with your primary care provider (referral list provided) and return to the emergency department if you have any new or worsening symptoms or other concerns.
[2023-07-27 01:03] VITALS: BP 118/81; O2SAT 96
== END 2023-07-27 01:28 | disposition home or self-care (01) ==
LOC: EDUNIT# → ED 21:43
DX: J44.9 Chronic obstructive pulmonary disease, unspecified (principal); I10 Essential (primary) hypertension; F17.200 Nicotine dependence, unspecified, uncomplicated
CPT/HCPCS: 99283

== ENCOUNTER 2023-09-01 16:24 | Outpatient (CLI) | payer MEDICARE, MEDICAID | END 2023-09-01 23:59 | disposition EMS.NT | LOC: EMS 16:24 | DX: Z03.89 Encounter for observation for other suspected diseases and conditions ruled out (principal) ==

== ENCOUNTER 2023-10-03 15:34 | Outpatient (CLI) | payer MEDICARE, MEDICAID | END 2023-10-03 23:59 | disposition E | LOC: EMS 15:34 | DX: I46.9 Cardiac arrest, cause unspecified (principal) ==